=== PATIENT | female | born 1945 | race African-American/Black ===

== ENCOUNTER 2016-06-03 12:53 | Emergency (ER) | payer MEDICARE ==
[~2016-06-03] VITALS: Ht 160 cm; Wt 130.0 kg
[2016-06-03 12:57] VITALS: PULSE 67; TEMP 98.4
[2016-06-03] MEDS ORDERED: NORVASC 10MG10 MG PO (13:33)
[2016-06-03] MEDS ORDERED: LIPITOR 40MG TA40 MG PO (13:33)
[2016-06-03] MEDS ORDERED: CATAPRES0.2 MG PO (13:34)
[2016-06-03] MEDS ORDERED: JANUVIA 100MG100 MG PO (13:34)
[2016-06-03] MEDS ORDERED: GLUCOPHAGE1000 MG PO (13:34)
[2016-06-03] MEDS ORDERED: CELEXA10 MG PO (13:35)
[2016-06-03] MEDS ORDERED: COZAAR100 MG PO (13:35)
[2016-06-03] MEDS ORDERED: DITROPAN 5MG TAB5 MG PO (13:36)
[2016-06-03] MEDS ORDERED: HCTZ 25MG TAB25 MG PO (13:36)
[2016-06-03] MEDS ORDERED: APRESOLINE 25MG25 MG PO (13:36)
[2016-06-03] MEDS ORDERED: FOSAMAX 70MG TA70 MG PO (13:37)
[2016-06-03 14:16] LABS: PROTHROMBIN TIME 11.5 SECONDS (9.7-12.8)
[2016-06-03 14:18] LABS: BASO % 0.6 % (0.0-2.0); EOS # 0.1 (0.0-0.7); EOS % 2.6 % (0-4.0); GRAN # 2.3 (1.4-6.5); GRAN % 44.1 % (42.2-75.2); LYMPH # 2.2 (1.2-3.4); LYMPH % 41.7 % (20.0-51.0); MEAN CELL VOLUME 67 fl (80.0-100.0); MEAN CORPUSCULAR HGB CONC 29 g/dl (33.0-37.0); MONO # 0.6 (0.1-0.6); MONO % 10.8 % (1.7-9.3); PARTIAL THROMBOPLASTIN TIME 36.2 SECONDS (26.0-37.0); PLATELET COUNT 291 K/mm3 (130-400); RED BLOOD COUNT 5.21 M/mm3 (4.10-5.30); REDCELL DISTRIBUTION WIDTH-CV 21.2 % (11.5-14.5); WHITE BLOOD COUNT 5.3 K/mm3 (4.8-10.8)
[2016-06-03 14:21] LABS: HEMOGLOBIN 10.3 g/dl (12.5-16.0); MEAN CORPUSCULAR HEMOGLOBIN 20 pg (27.0-31.0)
[2016-06-03 14:55] LABS: ADJUSTED CALCIUM 9.8 mg/dL (8.4-10.2); ALANINE AMINOTRANSFERASE 22 U/L (9-52); ALBUMIN 3.8 gm/dL (3.5-5.0); ALKALINE PHOSPHATASE 117 U/L (50-136); ANION GAP 9 mmol/L (7-16); BILIRUBIN,TOTAL 0.9 mg/dL (0.0-1.0); BLOOD UREA NITROGEN 19 mg/dL (7-17); CALCIUM 9.6 mg/dL (8.4-10.2); CARBON DIOXIDE 31 mmol/L (22-30); CHLORIDE 101 mmol/L (98-107); CREATININE, serum 1.04 mg/dL (0.52-1.25); GLUCOSE 131 mg/dL (74-106); LIPASE 46 U/L (23-300); SODIUM 141 mmol/L (137-145); TOTAL PROTEIN 7.9 gm/dL (6.4-8.2)
[2016-06-03 15:09] LABS: TROPONIN-I < 0.012 ng/mL (0.000-0.034)
[2016-06-03] MEDS ORDERED: ZOFRAN 4MG T4 MG/TAB PO (16:56)
[2016-06-03] MEDS ORDERED: NORCO 325 MG-51 TAB PO (16:56)
[2016-06-03 17:54] VITALS: BP 111/79
== END 2016-06-03 17:58 | disposition home or self-care (01) ==
LOC: COL.ER 12:53
PROVIDERS: Emergency Medicine
DX: R10.11 Right upper quadrant pain (principal); I10 Essential (primary) hypertension; I44.1 Atrioventricular block, second degree; W01.0XXA Fall on same level from slipping, tripping and stumbling without subsequent striking against object, initial encounter
CPT/HCPCS: J1170; J2405; J7030; Q9967

== ENCOUNTER → 2016-08-03 | Outpatient (CLI) | payer MEDICARE, OTHER ==
[~2016-08-03] MED LIST: APRESOLINE 25MG25 MG PO; CATAPRES0.2 MG PO; CELEXA10 MG PO; COZAAR100 MG PO; DITROPAN 5MG TAB5 MG PO; FOSAMAX 70MG TA70 MG PO; GLUCOPHAGE1000 MG PO; HCTZ 25MG TAB25 MG PO; JANUVIA 100MG100 MG PO; LIPITOR 40MG TA40 MG PO; NORCO 325 MG-51 TAB PO; NORVASC 10MG10 MG PO; ZOFRAN 4MG T4 MG/TAB PO
== END ==
LOC: SUN.DIA 08:45
DX: E11.65 Type 2 diabetes mellitus with hyperglycemia (principal); E66.9 Obesity, unspecified; Z68.42 Body mass index [BMI] 45.0-49.9, adult; Z71.3 Dietary counseling and surveillance; E78.5 Hyperlipidemia, unspecified; I10 Essential (primary) hypertension; G47.30 Sleep apnea, unspecified
CPT/HCPCS: G0108

== ENCOUNTER → 2016-08-08 | Outpatient (CLI) | payer OTHER ==
[2016-08-08 12:40] LABS: CREATININE, serum 1.05 mg/dL (0.52-1.25)
[2016-08-09 00:42] LABS: CORTISOL RANDOM 13 ug/dL (3-20)
[2016-08-11 08:52] LABS: .METANEPHRINE <0.20 nmol/L (<0.50); .NORMETANEPH <0.20 nmol/L (<0.90)
[2016-08-11 13:53] LABS: RENIN,PLASMA <0.6 ng/mL/h (())
== END ==
LOC: COL.LAB 10:00
PROVIDERS: Internal Medicine Interventional Cardiology
DX: I10 Essential (primary) hypertension (principal)

== ENCOUNTER → 2016-08-23 | Outpatient (CLI) | payer MEDICARE, OTHER | LOC: SUN.DIA 10:23 | DX: E11.9 Type 2 diabetes mellitus without complications (principal); E78.5 Hyperlipidemia, unspecified; I10 Essential (primary) hypertension; E66.9 Obesity, unspecified; Z68.43 Body mass index [BMI] 50.0-59.9, adult; Z71.3 Dietary counseling and surveillance ==

== ENCOUNTER 2016-10-14 09:40 | Outpatient (CLI) | payer MEDICARE ==
[~2016-10-14] VITALS: Ht 162.6 cm; Wt 127.2 kg
[2016-10-14 10:04] VITALS: BP 209/97; PULSE 59; TEMP 98
[2016-10-14 10:27] LABS: MEAN CELL VOLUME 67 fl (80.0-100.0); MEAN CORPUSCULAR HGB CONC 30 g/dl (33.0-37.0); MEAN PLATELET VOLUME 9.5 fl (7.4-10.4); PLATELET COUNT 290 K/mm3 (130-400); REDCELL DISTRIBUTION WIDTH-CV 19.6 % (11.5-14.5); WHITE BLOOD COUNT 5.8 K/mm3 (4.8-10.8)
[2016-10-14 10:28] LABS: HEMATOCRIT 34.8 % (37.0-47.0); HEMOGLOBIN 10.4 g/dl (12.5-16.0); MEAN CORPUSCULAR HEMOGLOBIN 20 pg (27.0-31.0)
[2016-10-14 12:12] VITALS: BP 226/109; PULSE 62
== END 2016-10-14 12:36 | disposition home or self-care (01) ==
LOC: EUO 09:40
PROVIDERS: Internal Medicine Interventional Cardiology
DX: I45.5 Other specified heart block (principal); I10 Essential (primary) hypertension; R55 Syncope and collapse
CPT/HCPCS: C1764

== ENCOUNTER → 2016-10-14 | Outpatient (CLI) | payer MEDICARE | LOC: COL.PUL 08:54 | DX: J45.909 Unspecified asthma, uncomplicated (principal) ==

== ENCOUNTER 2016-12-02 10:13 | Day surgery (SDC) | payer MEDICARE ==
[~2016-12-02] VITALS: Ht 162.6 cm; Wt 129.0 kg
[2016-12-02] VITALS (11 sets, daily range): BP systolic 171–211; BP diastolic 85–111; PULSE 56–73; TEMP 98.6
[2016-12-02 11:38] LABS: CALCIUM 9.5 mg/dL (8.4-10.2); CREATININE, serum 1.14 mg/dL (0.52-1.25); POTASSIUM 3.9 mmol/L (3.4-5.0)
[2016-12-02 11:45] LABS: MEAN CELL VOLUME 68 fl (80.0-100.0); MEAN CORPUSCULAR HGB CONC 29 g/dl (33.0-37.0); PLATELET COUNT 304 K/mm3 (130-400); RED BLOOD COUNT 4.95 M/mm3 (4.10-5.30); WHITE BLOOD COUNT 6.5 K/mm3 (4.8-10.8)
[2016-12-02 11:47] LABS: HEMATOCRIT 33.6 % (37.0-47.0); HEMOGLOBIN 9.8 g/dl (12.5-16.0); MEAN CORPUSCULAR HEMOGLOBIN 20 pg (27.0-31.0)
== END 2016-12-02 17:35 | disposition home or self-care (01) ==
LOC: COL.CAR 10:13
PROVIDERS: Internal Medicine Interventional Cardiology
DX: I10 Essential (primary) hypertension (principal); G47.33 Obstructive sleep apnea (adult) (pediatric); E66.9 Obesity, unspecified
CPT/HCPCS: C1760; C1894; J0360; J2250; J3010; Q9967

== ENCOUNTER 2017-01-18 01:29 | Emergency (ER) | payer MEDICARE ==
[2017-01-18 01:34] VITALS: TEMP 98.5
[2017-01-18 01:56] LABS: BASO % 0.4 % (0.0-2.0); EOS # 0.2 (0.0-0.7); GRAN # 4.5 (1.4-6.5); GRAN % 59.9 % (42.2-75.2); HEMATOCRIT 33.5 % (37.0-47.0); HEMOGLOBIN 9.9 g/dl (12.5-16.0); LYMPH # 1.9 (1.2-3.4); LYMPH % 24.8 % (20.0-51.0); MEAN CELL VOLUME 68 fl (80.0-100.0); MEAN CORPUSCULAR HEMOGLOBIN 20 pg (27.0-31.0); MEAN CORPUSCULAR HGB CONC 30 g/dl (33.0-37.0); MEAN PLATELET VOLUME 9.6 fl (7.4-10.4); MONO # 0.9 (0.1-0.6); MONO % 12.6 % (1.7-9.3); PLATELET COUNT 298 K/mm3 (130-400); RED BLOOD COUNT 4.92 M/mm3 (4.10-5.30); WHITE BLOOD COUNT 7.5 K/mm3 (4.8-10.8)
[2017-01-18 01:58] LABS: ALLEN TEST YES; ALLENS TEST RESULT PASS; ARTERIAL BLD GAS O2 SATURATION 95.7 % (92-100); ARTERIAL BLD GAS TCO2 CT 25.6; ARTERIAL BLOOD GAS BASE EXCESS 0.4 (-2-2); ARTERIAL BLOOD GAS HCO3 24.5 meq/L (22-26); ARTERIAL BLOOD GAS pH 7.43 (7.35-7.45); ATS? YES; OXYHEMOGLOBIN 94.6 %
[2017-01-18 02:09] LABS: ADJUSTED CALCIUM 9.8 mg/dL (8.4-10.2); ALBUMIN 4.1 gm/dL (3.5-5.0); BILIRUBIN,TOTAL 0.6 mg/dL (0.0-1.0); CALCIUM 9.9 mg/dL (8.4-10.2); CREATININE, serum 1.06 mg/dL (0.52-1.25); POTASSIUM 3.5 mmol/L (3.4-5.0); TOTAL PROTEIN 8.2 gm/dL (6.4-8.2)
[2017-01-18 02:20] LABS: TROPONIN-I 0.014 ng/mL (0.000-0.034)
[2017-01-18] MEDS ORDERED: LEVAQUIN 750MG750 M1 PO (04:23)
[2017-01-18 05:45] VITALS: BP 160/80; PULSE 60
== END 2017-01-18 06:08 | disposition home or self-care (01) ==
LOC: COL.ER 01:29
PROVIDERS: Emergency Medicine
DX: J18.9 Pneumonia, unspecified organism (principal); I10 Essential (primary) hypertension; J45.909 Unspecified asthma, uncomplicated; E11.9 Type 2 diabetes mellitus without complications; Z98.890 Other specified postprocedural states; Z79.84 Long term (current) use of oral hypoglycemic drugs
CPT/HCPCS: J1100; Q9967

== ENCOUNTER 2017-02-14 04:43 | Emergency (ER) | payer MEDICARE ==
[~2017-02-14] VITALS: Ht 162.6 cm; Wt 127.3 kg
[~2017-02-14 04:43] MED LIST changes: +LEVAQUIN 750MG750 M1 PO
[2017-02-14 04:44] VITALS: TEMP 98.1
[2017-02-14] MEDS ORDERED: BREO IH (05:17)
[2017-02-14] MEDS ORDERED: PREDNISONE20 MG PO (06:24)
[2017-02-14 07:07] VITALS: BP 167/87; PULSE 65
== END 2017-02-14 07:08 | disposition home or self-care (01) ==
LOC: COL.ER 04:43
DX: J45.901 Unspecified asthma with (acute) exacerbation (principal); E11.9 Type 2 diabetes mellitus without complications; I10 Essential (primary) hypertension; Z79.84 Long term (current) use of oral hypoglycemic drugs; Z98.890 Other specified postprocedural states
CPT/HCPCS: J7512

== ENCOUNTER 2017-04-18 23:35 | Emergency (ER) | payer MEDICARE ==
[~2017-04-18] VITALS: Ht 162.6 cm; Wt 127.3 kg
[~2017-04-18 23:35] MED LIST changes: +BREO IH; +PREDNISONE20 MG PO
[2017-04-18 23:39] VITALS: TEMP 97.7
[2017-04-19 00:15] LABS: BASO % 0.6 % (0.0-2.0); EOS # 0.2 (0.0-0.7); EOS % 2.5 % (0-4.0); GRAN # 3.6 (1.4-6.5); GRAN % 52.6 % (42.2-75.2); LYMPH # 2.4 (1.2-3.4); LYMPH % 35.3 % (20.0-51.0); MEAN CELL VOLUME 67 fl (80.0-100.0); MEAN CORPUSCULAR HGB CONC 29 g/dl (33.0-37.0); MEAN PLATELET VOLUME 9.3 fl (7.4-10.4); MONO # 0.6 (0.1-0.6); MONO % 8.7 % (1.7-9.3); PLATELET COUNT 282 K/mm3 (130-400); RED BLOOD COUNT 5.21 M/mm3 (4.10-5.30); REDCELL DISTRIBUTION WIDTH-CV 20.6 % (11.5-14.5)
[2017-04-19 00:18] LABS: HEMATOCRIT 34.8 % (37.0-47.0); HEMOGLOBIN 10.2 g/dl (12.5-16.0); MEAN CORPUSCULAR HEMOGLOBIN 20 pg (27.0-31.0)
[2017-04-19 00:20] LABS: PROTHROMBIN TIME 12.1 SECONDS (9.7-12.8)
[2017-04-19 00:22] LABS: PARTIAL THROMBOPLASTIN TIME 26.9 SECONDS (26.0-37.0)
[2017-04-19 00:23] LABS: ALBUMIN 3.8 gm/dL (3.5-5.0); BILIRUBIN,TOTAL 0.3 mg/dL (0.0-1.0); CALCIUM 9.6 mg/dL (8.4-10.2); CREATININE, serum 1.1 mg/dL (0.52-1.25); POTASSIUM 4.3 mmol/L (3.4-5.0); TOTAL PROTEIN 7.8 gm/dL (6.4-8.2)
[2017-04-19 00:34] LABS: TROPONIN-I 0.019 ng/mL (0.000-0.034)
[2017-04-19] MEDS ORDERED: BYSTOLIC5 MG PO (00:48)
[2017-04-19] MEDS ORDERED: PROAIR HFA0.09 MG/AC IH (00:49)
[2017-04-19] MEDS ORDERED: PREDNISONE20 MG PO (01:12)
[2017-04-19 01:15] VITALS: BP 168/72; PULSE 75
== END 2017-04-19 02:00 | disposition home or self-care (01) ==
LOC: COL.ER 23:35
PROVIDERS: Emergency Medicine
DX: J45.901 Unspecified asthma with (acute) exacerbation (principal); E11.9 Type 2 diabetes mellitus without complications; I10 Essential (primary) hypertension; Z79.84 Long term (current) use of oral hypoglycemic drugs
CPT/HCPCS: J2930

== ENCOUNTER 2017-05-09 03:21 | Inpatient (IN) | payer MEDICARE ==
[~2017-05-09] VITALS: Ht 162.6 cm; Wt 134.4 kg
[2017-05-09] VITALS (10 sets, daily range): BP systolic 130–214; BP diastolic 71–113; PULSE 56–63; TEMP 97.4–97.8
[~2017-05-09 03:21] MED LIST changes: +BYSTOLIC5 MG PO; +PROAIR HFA0.09 MG/AC IH
[2017-05-09] MEDS ORDERED: CELEXA10 MG PO (03:52)
[2017-05-09 03:54] LABS: BASO % 0.3 % (0.0-2.0); EOS # 0.1 (0.0-0.7); EOS % 2.2 % (0-4.0); GRAN # 3.4 (1.4-6.5); GRAN % 58.8 % (42.2-75.2); LYMPH # 1.8 (1.2-3.4); LYMPH % 30.5 % (20.0-51.0); MEAN CELL VOLUME 67 fl (80.0-100.0); MEAN CORPUSCULAR HGB CONC 30 g/dl (33.0-37.0); MEAN PLATELET VOLUME 9.2 fl (7.4-10.4); MONO # 0.5 (0.1-0.6); MONO % 7.9 % (1.7-9.3); PLATELET COUNT 266 K/mm3 (130-400); REDCELL DISTRIBUTION WIDTH-CV 21.8 % (11.5-14.5)
[2017-05-09 03:55] LABS: HEMATOCRIT 34.9 % (37.0-47.0); HEMOGLOBIN 10.4 g/dl (12.5-16.0); MEAN CORPUSCULAR HEMOGLOBIN 20 pg (27.0-31.0)
[2017-05-09 03:57] LABS: PROTHROMBIN TIME 11.9 SECONDS (9.7-12.8)
[2017-05-09 04:04] LABS: ALBUMIN 3.9 gm/dL (3.5-5.0); BILIRUBIN,TOTAL 0.4 mg/dL (0.0-1.0); CALCIUM 9.2 mg/dL (8.4-10.2); CREATININE, serum 1.05 mg/dL (0.52-1.25); POTASSIUM 3.9 mmol/L (3.4-5.0); TOTAL PROTEIN 7.7 gm/dL (6.4-8.2)
[2017-05-09 04:19] LABS: TROPONIN-I 0.037 ng/mL (0.000-0.034)
[2017-05-09 08:25] LABS: CHOLESTEROL RISK RATIO 3.5; MAGNESIUM 1.6 mg/dL (1.6-2.3)
[2017-05-10 01:47] VITALS: BP 158/87; PULSE 56
[2017-05-10 03:49] VITALS: BP 162/81; PULSE 60; TEMP 97.6
[2017-05-10 05:35] LABS: BASO % 0.2 % (0.0-2.0); GRAN # 4.4 (1.4-6.5); GRAN % 87.2 % (42.2-75.2); LYMPH # 0.6 (1.2-3.4); MEAN CELL VOLUME 67 fl (80.0-100.0); MEAN CORPUSCULAR HGB CONC 30 g/dl (33.0-37.0); MONO # 0.1 (0.1-0.6); MONO % 1.2 % (1.7-9.3); PLATELET COUNT 283 K/mm3 (130-400); RED BLOOD COUNT 5.03 M/mm3 (4.10-5.30); REDCELL DISTRIBUTION WIDTH-CV 21.9 % (11.5-14.5)
[2017-05-10 05:44] LABS: HEMATOCRIT 33.5 % (37.0-47.0); HEMOGLOBIN 9.9 g/dl (12.5-16.0); MEAN CORPUSCULAR HEMOGLOBIN 20 pg (27.0-31.0)
[2017-05-10 05:46] LABS: CALCIUM 9.3 mg/dL (8.4-10.2); CREATININE, serum 0.97 mg/dL (0.52-1.25); POTASSIUM 4.3 mmol/L (3.4-5.0)
[2017-05-10 08:00] VITALS: BP 204/102; PULSE 66; TEMP 98.2
[2017-05-10 12:00] VITALS: BP 167/90; PULSE 53; TEMP 98
[2017-05-10 16:00] VITALS: BP 131/90; PULSE 60; TEMP 98
[2017-05-10 20:00] VITALS: BP 137/87; PULSE 68; TEMP 98
[2017-05-11] VITALS: BP 151/86; PULSE 56; TEMP 98
[2017-05-11 04:00] VITALS: BP 136/84; PULSE 54; TEMP 97.6
[2017-05-11 08:00] VITALS: BP 148/81; PULSE 55; TEMP 98.2
[2017-05-11 08:40] LABS: BASO % 0.1 % (0.0-2.0); EOS % 0.2 % (0-4.0); GRAN # 8.3 (1.4-6.5); GRAN % 73.2 % (42.2-75.2); HEMOGLOBIN 9.5 g/dl (12.5-16.0); LYMPH # 2.1 (1.2-3.4); LYMPH % 18.1 % (20.0-51.0); MEAN CELL VOLUME 67 fl (80.0-100.0); MEAN CORPUSCULAR HEMOGLOBIN 20 pg (27.0-31.0); MEAN CORPUSCULAR HGB CONC 30 g/dl (33.0-37.0); MONO # 0.9 (0.1-0.6); PLATELET COUNT 266 K/mm3 (130-400); REDCELL DISTRIBUTION WIDTH-CV 21.9 % (11.5-14.5)
[2017-05-11 08:56] LABS: BILIRUBIN,TOTAL 0.3 mg/dL (0.0-1.0); CREATININE, serum 1.64 mg/dL (0.52-1.25); POTASSIUM 4.2 mmol/L (3.4-5.0); TOTAL PROTEIN 6.8 gm/dL (6.4-8.2)
[2017-05-11 09:10] LABS: ALBUMIN 3.3 gm/dL (3.5-5.0); CALCIUM 9.5 mg/dL (8.4-10.2)
[2017-05-11 12:12] VITALS: BP 174/106; PULSE 55; TEMP 98
[2017-05-11 16:00] VITALS: BP 141/74; PULSE 52; TEMP 98.7
[2017-05-11 21:20] VITALS: BP 155/70; PULSE 57; TEMP 98
[2017-05-12] VITALS (7 sets, daily range): BP systolic 136–194; BP diastolic 50–80; PULSE 48–55; TEMP 97.5–98.4
[2017-05-12 08:36] LABS: BASO % 0.1 % (0.0-2.0); GRAN % 73.7 % (42.2-75.2); LYMPH # 1.5 (1.2-3.4); LYMPH % 18.3 % (20.0-51.0); MEAN CELL VOLUME 66 fl (80.0-100.0); MEAN CORPUSCULAR HGB CONC 30 g/dl (33.0-37.0); MONO # 0.6 (0.1-0.6); MONO % 7.4 % (1.7-9.3); PLATELET COUNT 310 K/mm3 (130-400); RED BLOOD COUNT 5.08 M/mm3 (4.10-5.30); REDCELL DISTRIBUTION WIDTH-CV 21.8 % (11.5-14.5)
[2017-05-12 08:37] LABS: HEMATOCRIT 33.7 % (37.0-47.0); HEMOGLOBIN 10.2 g/dl (12.5-16.0); MEAN CORPUSCULAR HEMOGLOBIN 20 pg (27.0-31.0)
[2017-05-12 08:49] LABS: CALCIUM 9.7 mg/dL (8.4-10.2); CREATININE, serum 1.36 mg/dL (0.52-1.25); POTASSIUM 4.2 mmol/L (3.4-5.0)
[2017-05-13 02:00] VITALS: BP 172/79; PULSE 49; TEMP 97.4
[2017-05-13 06:53] VITALS: BP 176/80; PULSE 44; TEMP 97.6
[2017-05-13 07:25] LABS: BASO % 0.1 % (0.0-2.0); EOS % 0.2 % (0-4.0); GRAN # 5.6 (1.4-6.5); GRAN % 65.7 % (42.2-75.2); MEAN CELL VOLUME 67 fl (80.0-100.0); MEAN CORPUSCULAR HGB CONC 30 g/dl (33.0-37.0); MONO # 0.8 (0.1-0.6); MONO % 9.6 % (1.7-9.3); PLATELET COUNT 289 K/mm3 (130-400); RED BLOOD COUNT 5.18 M/mm3 (4.10-5.30)
[2017-05-13 07:28] LABS: HEMATOCRIT 34.5 % (37.0-47.0); HEMOGLOBIN 10.3 g/dl (12.5-16.0); MEAN CORPUSCULAR HEMOGLOBIN 20 pg (27.0-31.0)
[2017-05-13 07:30] LABS: CALCIUM 9.7 mg/dL (8.4-10.2); CREATININE, serum 1.3 mg/dL (0.52-1.25); POTASSIUM 4.3 mmol/L (3.4-5.0)
[2017-05-13 11:07] VITALS: BP 157/68; PULSE 50; TEMP 97.7
[2017-05-13 14:36] VITALS: BP 146/59; PULSE 52; TEMP 98.5
[2017-05-13 17:51] VITALS: BP 161/61; PULSE 52; TEMP 97.8
[2017-05-13 20:00] VITALS: BP 146/56; PULSE 51; TEMP 98.1
[2017-05-14] VITALS (8 sets, daily range): BP systolic 140–209; BP diastolic 62–96; PULSE 45–97; TEMP 97.8–99.3
[2017-05-15] VITALS: BP 160/87; PULSE 69; TEMP 98.1
[2017-05-15 04:35] VITALS: BP 128/66; PULSE 51; TEMP 98.1
[2017-05-15 09:29] VITALS: BP 150/69; PULSE 56; TEMP 97.6
[2017-05-15 13:19] VITALS: BP 147/68; PULSE 52; TEMP 98.1
[2017-05-15] MEDS ORDERED: PLAVIX 75MG TAB75 MG PO (15:48)
== END 2017-05-15 17:13 | disposition home or self-care (01) | DRG 281 ==
LOC: COL.ER 03:21 → ICU 06:13 → SURG 06:13 → ICU 06:14 → SURG 05-11 11:58
PROVIDERS: Emergency Medicine; Family Medicine; Nurse Practitioner Family; Physician Assistant
DX: I16.0 Hypertensive urgency (principal); I21.A1 Myocardial infarction type 2; I50.30 Unspecified diastolic (congestive) heart failure; I11.0 Hypertensive heart disease with heart failure; E78.5 Hyperlipidemia, unspecified; E11.9 Type 2 diabetes mellitus without complications; G47.33 Obstructive sleep apnea (adult) (pediatric); R06.00 Dyspnea, unspecified; Z79.84 Long term (current) use of oral hypoglycemic drugs
CPT/HCPCS: 99223-AI; 99232-AI; 99233-AI; 99239; J0360; J1650; J1815; J7030; J7050; J7512; Q9967

== ENCOUNTER 2017-05-16 06:38 | Inpatient (IN) | payer MEDICARE ==
[~2017-05-16] VITALS: Ht 162.6 cm; Wt 131.1 kg
[~2017-05-16 06:38] MED LIST changes: +PLAVIX 75MG TAB75 MG PO
[2017-05-16 07:15] LABS: BASO % 0.4 % (0.0-2.0); EOS # 0.2 (0.0-0.7); EOS % 2.9 % (0-4.0); GRAN # 3.8 (1.4-6.5); GRAN % 50.1 % (42.2-75.2); HEMATOCRIT 38.9 % (37.0-47.0); LYMPH # 2.6 (1.2-3.4); LYMPH % 34.9 % (20.0-51.0); MEAN CELL VOLUME 66 fl (80.0-100.0); MEAN CORPUSCULAR HGB CONC 31 g/dl (33.0-37.0); MONO # 0.8 (0.1-0.6); MONO % 10.9 % (1.7-9.3); PLATELET COUNT 321 K/mm3 (130-400); RED BLOOD COUNT 5.86 M/mm3 (4.10-5.30); REDCELL DISTRIBUTION WIDTH-CV 22.5 % (11.5-14.5)
[2017-05-16 07:16] LABS: HEMOGLOBIN 11.9 g/dl (12.5-16.0); MEAN CORPUSCULAR HEMOGLOBIN 20 pg (27.0-31.0)
[2017-05-16 07:20] LABS: ARTERIAL BLD GAS O2 SATURATION 91.4 % (92-100); ARTERIAL BLD GAS TCO2 CT 26.9; ARTERIAL BLOOD GAS HCO3 25.7 meq/L (22-26); ARTERIAL BLOOD GAS PCO2 37.1 mmHg (35-45); ARTERIAL BLOOD GAS PO2 64.6 mmHg (80-100); ARTERIAL BLOOD GAS pH 7.46 (7.35-7.45)
[2017-05-16 07:23] LABS: ALBUMIN 3.9 gm/dL (3.5-5.0); BILIRUBIN,TOTAL 0.5 mg/dL (0.0-1.0); CALCIUM 9.6 mg/dL (8.4-10.2); CREATININE, serum 1.41 mg/dL (0.52-1.25); POTASSIUM 4.6 mmol/L (3.4-5.0); TOTAL PROTEIN 7.8 gm/dL (6.4-8.2)
[2017-05-16 07:36] LABS: TROPONIN-I 0.029 ng/mL (0.000-0.034)
[2017-05-16 11:48] VITALS: BP 174/85; PULSE 66
[2017-05-16 17:12] VITALS: BP 157/129; PULSE 55; TEMP 98.8
[2017-05-16 20:16] VITALS: BP 208/82; PULSE 64; TEMP 97.6
[2017-05-16 21:15] VITALS: BP 196/115; PULSE 68
[2017-05-16 22:53] VITALS: BP 162/93; PULSE 68
[2017-05-17] VITALS (9 sets, daily range): BP systolic 106–186; BP diastolic 56–105; PULSE 52–72; TEMP 97.6–98.3
[2017-05-17 06:37] LABS: BASO % 0.4 % (0.0-2.0); EOS # 0.1 (0.0-0.7); EOS % 0.9 % (0-4.0); GRAN # 4.7 (1.4-6.5); GRAN % 68.5 % (42.2-75.2); HEMATOCRIT 37.9 % (37.0-47.0); LYMPH # 1.2 (1.2-3.4); LYMPH % 17.7 % (20.0-51.0); MEAN CELL VOLUME 67 fl (80.0-100.0); MEAN CORPUSCULAR HGB CONC 29 g/dl (33.0-37.0); MONO # 0.8 (0.1-0.6); MONO % 11.9 % (1.7-9.3); PLATELET COUNT 308 K/mm3 (130-400); RED BLOOD COUNT 5.62 M/mm3 (4.10-5.30); REDCELL DISTRIBUTION WIDTH-CV 22.5 % (11.5-14.5)
[2017-05-17 06:49] LABS: CALCIUM 9.4 mg/dL (8.4-10.2); CREATININE, serum 1.22 mg/dL (0.52-1.25); MAGNESIUM 1.7 mg/dL (1.6-2.3); PHOSPHOROUS 3.5 mg/dL (2.5-4.5); POTASSIUM 3.8 mmol/L (3.4-5.0)
[2017-05-17 07:09] LABS: HEMOGLOBIN 11.1 g/dl (12.5-16.0); MEAN CORPUSCULAR HEMOGLOBIN 20 pg (27.0-31.0)
[2017-05-18] VITALS (7 sets, daily range): BP systolic 94–143; BP diastolic 55–69; PULSE 50–58; TEMP 97.8–98.8
[2017-05-18 06:55] LABS: BASO % 0.3 % (0.0-2.0); EOS # 0.1 (0.0-0.7); EOS % 1.8 % (0-4.0); GRAN % 58.5 % (42.2-75.2); LYMPH # 1.8 (1.2-3.4); LYMPH % 26.8 % (20.0-51.0); MEAN CELL VOLUME 67 fl (80.0-100.0); MEAN CORPUSCULAR HGB CONC 30 g/dl (33.0-37.0); MONO # 0.8 (0.1-0.6); MONO % 12.2 % (1.7-9.3); PLATELET COUNT 314 K/mm3 (130-400); RED BLOOD COUNT 5.35 M/mm3 (4.10-5.30); REDCELL DISTRIBUTION WIDTH-CV 22.5 % (11.5-14.5)
[2017-05-18 06:56] LABS: HEMATOCRIT 35.8 % (37.0-47.0); HEMOGLOBIN 10.6 g/dl (12.5-16.0); MEAN CORPUSCULAR HEMOGLOBIN 20 pg (27.0-31.0)
[2017-05-18 07:07] LABS: CALCIUM 9.2 mg/dL (8.4-10.2); CREATININE, serum 2.23 mg/dL (0.52-1.25); POTASSIUM 3.8 mmol/L (3.4-5.0)
[2017-05-19 01:41] VITALS: BP 110/62; PULSE 53; TEMP 98.8
[2017-05-19 05:13] VITALS: BP 137/57; PULSE 49; TEMP 98.3
[2017-05-19 06:18] LABS: BASO % 0.6 % (0.0-2.0); EOS # 0.2 (0.0-0.7); EOS % 2.9 % (0-4.0); GRAN # 2.7 (1.4-6.5); GRAN % 42.8 % (42.2-75.2); LYMPH # 2.5 (1.2-3.4); LYMPH % 39.4 % (20.0-51.0); MEAN CELL VOLUME 67 fl (80.0-100.0); MEAN CORPUSCULAR HGB CONC 30 g/dl (33.0-37.0); MONO # 0.9 (0.1-0.6); MONO % 13.7 % (1.7-9.3); PLATELET COUNT 335 K/mm3 (130-400); RED BLOOD COUNT 5.15 M/mm3 (4.10-5.30); REDCELL DISTRIBUTION WIDTH-CV 22.1 % (11.5-14.5)
[2017-05-19 06:22] LABS: HEMATOCRIT 34.4 % (37.0-47.0); HEMOGLOBIN 10.2 g/dl (12.5-16.0); MEAN CORPUSCULAR HEMOGLOBIN 20 pg (27.0-31.0)
[2017-05-19 06:35] LABS: CREATININE, serum 2.02 mg/dL (0.52-1.25); PHOSPHOROUS 4.3 mg/dL (2.5-4.5); POTASSIUM 3.8 mmol/L (3.4-5.0)
[2017-05-19 09:12] VITALS: BP 127/46; PULSE 51; TEMP 98.5
[2017-05-19] MEDS ORDERED: JANUVIA 100MG100 MG PO (09:42)
[2017-05-19 14:00] VITALS: BP 120/40; PULSE 52; TEMP 99
== END 2017-05-19 15:48 | disposition home or self-care (01) | DRG 154 ==
LOC: COL.ER 06:38 → SURG 09:50
PROVIDERS: Emergency Medicine; Internal Medicine; Physician Assistant
DX: G47.33 Obstructive sleep apnea (adult) (pediatric) (principal); I21.A1 Myocardial infarction type 2; N17.9 Acute kidney failure, unspecified; I16.1 Hypertensive emergency; I50.32 Chronic diastolic (congestive) heart failure; I11.0 Hypertensive heart disease with heart failure; E11.9 Type 2 diabetes mellitus without complications; J45.909 Unspecified asthma, uncomplicated; F41.8 Other specified anxiety disorders
CPT/HCPCS: OP; 99222-AI; 99232-AI; 99233-AI; 99239; G0378; J1630; J1650; J1815; J1940

== ENCOUNTER → 2017-06-21 | Outpatient (CLI) | payer MEDICARE | LOC: COL.RAD 10:49 | DX: Z01.89 Encounter for other specified special examinations (principal) ==

== ENCOUNTER 2017-09-24 21:12 | Inpatient (IN) | payer MEDICARE ==
[~2017-09-24] VITALS: Ht 162.6 cm; Wt 130.4 kg
[~2017-09-24 21:12] MED LIST changes: +AMOXICILLIN 8751 TAB PO; +AMOXICILLIN875 MG PO; +COREG 25MG25 MG/TAB PO; +COZAAR 50MG50 MG/TAB PO; +ZESTRIL 10MG10 MG PO
[2017-09-24 22:04] LABS: BASO % 0.4 % (0.0-2.0); EOS # 0.2 (0.0-0.7); EOS % 2.4 % (0-4.0); GRAN # 4.6 (1.4-6.5); GRAN % 65.2 % (42.2-75.2); LYMPH # 1.5 (1.2-3.4); LYMPH % 21.4 % (20.0-51.0); MEAN CELL VOLUME 69 fl (80.0-100.0); MEAN CORPUSCULAR HGB CONC 29 g/dl (33.0-37.0); MEAN PLATELET VOLUME 10.2 fl (7.4-10.4); MONO # 0.7 (0.1-0.6); MONO % 10.3 % (1.7-9.3); PLATELET COUNT 283 K/mm3 (130-400); RED BLOOD COUNT 4.55 M/mm3 (4.10-5.30); REDCELL DISTRIBUTION WIDTH-CV 19.8 % (11.5-14.5)
[2017-09-24 22:05] LABS: HEMATOCRIT 31.3 % (37.0-47.0); HEMOGLOBIN 9.2 g/dl (12.5-16.0); MEAN CORPUSCULAR HEMOGLOBIN 20 pg (27.0-31.0)
[2017-09-24 22:15] LABS: ALBUMIN 3.9 gm/dL (3.5-5.0); BILIRUBIN,TOTAL 0.5 mg/dL (0.0-1.0); C-REACTIVE PROTEIN 4.6 mg/dL (0.0-0.9); CALCIUM 9.2 mg/dL (8.4-10.2); CREATININE, serum 1.12 mg/dL (0.52-1.25); POTASSIUM 3.7 mmol/L (3.4-5.0); TOTAL PROTEIN 7.9 gm/dL (6.4-8.2)
[2017-09-24 22:26] LABS: TROPONIN-I 0.095 ng/mL (0.000-0.034)
[2017-09-25] VITALS (818 sets, daily range): BP systolic 102–183; BP diastolic 50–107; PULSE 60–68; TEMP 96.8–97.3; O2SAT 70–100
[2017-09-25 06:04] LABS: BASO % 0.3 % (0.0-2.0); EOS # 0.1 (0.0-0.7); EOS % 1.8 % (0-4.0); GRAN % 58.7 % (42.2-75.2); HEMATOCRIT 28.8 % (37.0-47.0); HEMOGLOBIN 8.6 g/dl (12.5-16.0); LYMPH # 1.9 (1.2-3.4); LYMPH % 28.1 % (20.0-51.0); MEAN CELL VOLUME 69 fl (80.0-100.0); MEAN CORPUSCULAR HEMOGLOBIN 20 pg (27.0-31.0); MEAN CORPUSCULAR HGB CONC 30 g/dl (33.0-37.0); MEAN PLATELET VOLUME 9.7 fl (7.4-10.4); MONO # 0.7 (0.1-0.6); MONO % 10.7 % (1.7-9.3); PLATELET COUNT 269 K/mm3 (130-400); REDCELL DISTRIBUTION WIDTH-CV 19.8 % (11.5-14.5)
[2017-09-25 06:23] LABS: CALCIUM 9.1 mg/dL (8.4-10.2); CREATININE, serum 1.07 mg/dL (0.52-1.25); POTASSIUM 3.3 mmol/L (3.4-5.0)
[2017-09-25 06:44] LABS: TROPONIN-I 0.253 ng/mL (0.000-0.034)
[2017-09-26] VITALS (642 sets, daily range): BP systolic 106–149; BP diastolic 41–82; PULSE 59–65; TEMP 97–98.9; O2SAT 50–100
[2017-09-26 05:28] LABS: BASO % 0.5 % (0.0-2.0); EOS # 0.3 (0.0-0.7); EOS % 4.9 % (0-4.0); GRAN # 3.1 (1.4-6.5); GRAN % 56.1 % (42.2-75.2); LYMPH # 1.6 (1.2-3.4); LYMPH % 28.6 % (20.0-51.0); MEAN CELL VOLUME 68 fl (80.0-100.0); MEAN CORPUSCULAR HGB CONC 30 g/dl (33.0-37.0); MEAN PLATELET VOLUME 9.4 fl (7.4-10.4); MONO # 0.5 (0.1-0.6); MONO % 9.7 % (1.7-9.3); PLATELET COUNT 247 K/mm3 (130-400); RED BLOOD COUNT 4.36 M/mm3 (4.10-5.30)
[2017-09-26 05:39] LABS: CALCIUM 8.8 mg/dL (8.4-10.2); CREATININE, serum 1.29 mg/dL (0.52-1.25); MAGNESIUM 1.6 mg/dL (1.6-2.3); POTASSIUM 3.9 mmol/L (3.4-5.0)
[2017-09-26 05:40] LABS: HEMATOCRIT 29.6 % (37.0-47.0); HEMOGLOBIN 8.9 g/dl (12.5-16.0); MEAN CORPUSCULAR HEMOGLOBIN 20 pg (27.0-31.0)
[2017-09-26 05:53] LABS: TROPONIN-I 0.131 ng/mL (0.000-0.034)
[2017-09-27 04:24] VITALS: BP 125/66; PULSE 60; TEMP 98.6
[2017-09-27 06:48] LABS: BASO % 0.5 % (0.0-2.0); EOS # 0.3 (0.0-0.7); EOS % 4.4 % (0-4.0); GRAN # 3.1 (1.4-6.5); GRAN % 53.4 % (42.2-75.2); HEMATOCRIT 28.8 % (37.0-47.0); HEMOGLOBIN 8.5 g/dl (12.5-16.0); LYMPH # 1.6 (1.2-3.4); LYMPH % 28.4 % (20.0-51.0); MEAN CELL VOLUME 69 fl (80.0-100.0); MEAN CORPUSCULAR HEMOGLOBIN 20 pg (27.0-31.0); MEAN CORPUSCULAR HGB CONC 30 g/dl (33.0-37.0); MEAN PLATELET VOLUME 10.1 fl (7.4-10.4); MONO # 0.8 (0.1-0.6); MONO % 13.1 % (1.7-9.3); PLATELET COUNT 259 K/mm3 (130-400); RED BLOOD COUNT 4.17 M/mm3 (4.10-5.30); REDCELL DISTRIBUTION WIDTH-CV 19.3 % (11.5-14.5)
[2017-09-27 07:06] LABS: CALCIUM 8.9 mg/dL (8.4-10.2); CREATININE, serum 1.27 mg/dL (0.52-1.25); MAGNESIUM 1.8 mg/dL (1.6-2.3); POTASSIUM 4.3 mmol/L (3.4-5.0)
[2017-09-27 07:22] VITALS: BP 151/75; PULSE 59; TEMP 97.5
[2017-09-27 11:50] VITALS: BP 132/89; TEMP 98
[2017-09-27 15:23] VITALS: BP 126/57; PULSE 74; TEMP 98.7
[2017-09-27 20:18] VITALS: BP 134/60; PULSE 59; TEMP 99.3
[2017-09-28] VITALS (7 sets, daily range): BP systolic 114–132; BP diastolic 48–70; PULSE 58–64; TEMP 97.7–98.8
[2017-09-28 06:36] LABS: BASO % 0.5 % (0.0-2.0); EOS # 0.2 (0.0-0.7); EOS % 3.1 % (0-4.0); GRAN # 3.7 (1.4-6.5); LYMPH # 1.7 (1.2-3.4); LYMPH % 26.2 % (20.0-51.0); MEAN CELL VOLUME 67 fl (80.0-100.0); MEAN CORPUSCULAR HGB CONC 31 g/dl (33.0-37.0); MONO # 0.8 (0.1-0.6); PLATELET COUNT 262 K/mm3 (130-400); RED BLOOD COUNT 4.34 M/mm3 (4.10-5.30); REDCELL DISTRIBUTION WIDTH-CV 19.4 % (11.5-14.5)
[2017-09-28 06:40] LABS: HEMATOCRIT 29.2 % (37.0-47.0); HEMOGLOBIN 8.9 g/dl (12.5-16.0); MEAN CORPUSCULAR HEMOGLOBIN 21 pg (27.0-31.0)
[2017-09-28 06:53] LABS: CALCIUM 8.7 mg/dL (8.4-10.2); CREATININE, serum 1.35 mg/dL (0.52-1.25); POTASSIUM 4.3 mmol/L (3.4-5.0)
[2017-09-29 04:07] VITALS: BP 123/69; PULSE 59; TEMP 98.1
[2017-09-29 06:53] LABS: BASO % 0.5 % (0.0-2.0); EOS # 0.2 (0.0-0.7); EOS % 3.2 % (0-4.0); LYMPH # 1.5 (1.2-3.4); LYMPH % 27.4 % (20.0-51.0); MEAN CELL VOLUME 70 fl (80.0-100.0); MEAN CORPUSCULAR HGB CONC 29 g/dl (33.0-37.0); MONO # 0.8 (0.1-0.6); MONO % 13.5 % (1.7-9.3); PLATELET COUNT 274 K/mm3 (130-400); RED BLOOD COUNT 4.05 M/mm3 (4.10-5.30); REDCELL DISTRIBUTION WIDTH-CV 19.2 % (11.5-14.5)
[2017-09-29 06:57] LABS: HEMATOCRIT 28.2 % (37.0-47.0); HEMOGLOBIN 8.2 g/dl (12.5-16.0); MEAN CORPUSCULAR HEMOGLOBIN 20 pg (27.0-31.0)
[2017-09-29 07:09] LABS: CALCIUM 8.6 mg/dL (8.4-10.2); CREATININE, serum 1.49 mg/dL (0.52-1.25); POTASSIUM 4.1 mmol/L (3.4-5.0)
[2017-09-29 07:14] VITALS: BP 129/75; PULSE 59; TEMP 97.8
[2017-09-29] MEDS ORDERED: CATAPRES 0.1MG0.1 MG PO (09:10)
[2017-09-29] MEDS ORDERED: PLAVIX 75MG TAB75 MG PO (09:10)
[2017-09-29] MEDS ORDERED: COZAAR100 MG PO (09:11)
[2017-09-29] MEDS ORDERED: NORVASC 5MG5 MG/TAB PO (09:12)
[2017-10-02 11:57] LABS: CATECHOLAMINES-HRS COLLECTED 24 h (()); DOPAMINE 113 mcg/24 h (65-400); EPINEPHRINE <0.8 mcg/24 h (<21); NOREPINEPHRINE 15 mcg/24 h (15-80); URINE VOLUME 1500 mL (())
== END 2017-09-29 13:00 | disposition home health service (06) | DRG 280 ==
LOC: COL.ER 21:12 → MEDICAL 23:17 → ICU 23:17 → MEDICAL 09-26 14:18 → ICU 09-26 14:18 → MEDICAL 09-26 16:09
PROVIDERS: Emergency Medicine; Internal Medicine; Internal Medicine Cardiovascular Disease; Nurse Practitioner Family; Physician Assistant
DX: I16.1 Hypertensive emergency (principal); I21.4 Non-ST elevation (NSTEMI) myocardial infarction; I50.33 Acute on chronic diastolic (congestive) heart failure; N17.9 Acute kidney failure, unspecified; I13.0 Hypertensive heart and chronic kidney disease with heart failure and stage 1 through stage 4 chronic kidney disease, or unspecified chronic kidney disease; N18.3 Chronic kidney disease, stage 3 (moderate); I34.0 Nonrheumatic mitral (valve) insufficiency; I50.9 Heart failure, unspecified; E87.6 Hypokalemia; G47.33 Obstructive sleep apnea (adult) (pediatric); J45.909 Unspecified asthma, uncomplicated; F32.9 Major depressive disorder, single episode, unspecified; F41.9 Anxiety disorder, unspecified; D64.9 Anemia, unspecified; Z95.0 Presence of cardiac pacemaker; E11.22 Type 2 diabetes mellitus with diabetic chronic kidney disease
CPT/HCPCS: OP; 99232-AI; 99233-AI; 99239; A9562; J1650; J1815; J1940; J3475

== ENCOUNTER 2017-10-01 03:17 | Inpatient (IN) | payer MEDICARE ==
[~2017-10-01] VITALS: Ht 162.6 cm; Wt 128.3 kg
[~2017-10-01 03:17] MED LIST changes: +CATAPRES 0.1MG0.1 MG PO; +NORVASC 5MG5 MG/TAB PO
[2017-10-01 03:58] LABS: MEAN CELL VOLUME 70 fl (80.0-100.0); MEAN CORPUSCULAR HGB CONC 29 g/dl (33.0-37.0); MEAN PLATELET VOLUME 9.9 fl (7.4-10.4); PLATELET COUNT 284 K/mm3 (130-400)
[2017-10-01 04:04] LABS: ALBUMIN 3.8 gm/dL (3.5-5.0); BILIRUBIN,TOTAL 0.7 mg/dL (0.0-1.0); CALCIUM 9.3 mg/dL (8.4-10.2); CREATININE, serum 1.12 mg/dL (0.52-1.25); POTASSIUM 4.3 mmol/L (3.4-5.0); TOTAL PROTEIN 8.1 gm/dL (6.4-8.2)
[2017-10-01 04:17] LABS: HEMATOCRIT 32.1 % (37.0-47.0); HEMOGLOBIN 9.3 g/dl (12.5-16.0); MEAN CORPUSCULAR HEMOGLOBIN 20 pg (27.0-31.0)
[2017-10-01 04:18] LABS: TROPONIN-I 0.079 ng/mL (0.000-0.034)
[2017-10-01 04:23] LABS: ANISOCYTOSIS 2+; BAND 21 % (0-10); HYPOCHROMIA 2+; LYMPHOCYTE 6 % (20.0-51.0); MICROCYTOSIS 2+; NEUTROPHILS 67 % (42.0-75.2); PLATELET ESTIMATE NORMAL (NORMAL)
[2017-10-01 09:07] VITALS: BP 140/64; PULSE 62; TEMP 98.4
[2017-10-01 11:54] VITALS: BP 120/63; PULSE 60; TEMP 98.7
[2017-10-01 16:52] VITALS: BP 137/60; PULSE 64; TEMP 98.4
[2017-10-01 18:02] LABS: MUCOUS Present /lpf; PH 6 (5-8); URINE APPEARANCE Cloudy; URINE BACTERIA Many /hpf; URINE BILIRUBIN Negative (NEGATIVE); URINE BLOOD 1+ (NEGATIVE); URINE COLOR Yellow; URINE GLUCOSE Negative (NEGATIVE); URINE KETONE Negative (NEGATIVE); URINE LEUKOCYTE ESTERASE 3+ (NEGATIVE); URINE NITRATE Positive (NEGATIVE); URINE PROTEIN(semi-quant) 1+ (NEGATIVE); URINE UROBILINOGEN >=4.0 mg/dL (NEGATIVE)
[2017-10-01 18:06] LABS: COLLECTION METHOD CLEAN CATCH
[2017-10-01 20:01] VITALS: BP 220/110; PULSE 75; TEMP 101.5
[2017-10-01 21:33] VITALS: BP 162/72; PULSE 76; TEMP 103
[2017-10-01 23:17] VITALS: BP 157/66; PULSE 78; TEMP 101.8
[2017-10-02 04:00] VITALS: BP 114/53; PULSE 61; TEMP 98.8
[2017-10-02 07:15] VITALS: BP 125/61; PULSE 72; TEMP 98.7
[2017-10-02 07:18] LABS: MEAN CELL VOLUME 70 fl (80.0-100.0); MEAN CORPUSCULAR HGB CONC 29 g/dl (33.0-37.0); PLATELET COUNT 240 K/mm3 (130-400); REDCELL DISTRIBUTION WIDTH-CV 19.2 % (11.5-14.5)
[2017-10-02 07:21] LABS: HEMATOCRIT 27.3 % (37.0-47.0); MEAN CORPUSCULAR HEMOGLOBIN 21 pg (27.0-31.0)
[2017-10-02 07:25] LABS: CALCIUM 8.6 mg/dL (8.4-10.2); CREATININE, serum 1.89 mg/dL (0.52-1.25); MAGNESIUM 1.5 mg/dL (1.6-2.3); POTASSIUM 4.1 mmol/L (3.4-5.0)
[2017-10-02 07:39] LABS: TROPONIN-I 0.114 ng/mL (0.000-0.034)
[2017-10-02 10:09] LABS: BAND 32 % (0-10); BASOPHIL 1 % (0-2); LYMPHOCYTE 10 % (20.0-51.0); NEUTROPHILS 51 % (42.0-75.2)
[2017-10-02 10:10] LABS: HYPOCHROMIA 3+
[2017-10-02 10:12] LABS: OVALOCYTES 1+; PLATELET ESTIMATE NORMAL (NORMAL); POIKILOCYTOSIS 1+
[2017-10-02 10:14] LABS: ANISOCYTOSIS 1+
[2017-10-02 12:36] VITALS: BP 125/49; PULSE 62; TEMP 98
[2017-10-02 17:09] VITALS: BP 117/66; PULSE 78; TEMP 98.1
[2017-10-02 21:12] VITALS: BP 150/56; PULSE 64; TEMP 100.1
[2017-10-03 00:35] VITALS: BP 118/53; PULSE 60; TEMP 97.5
[2017-10-03 03:03] VITALS: BP 127/73; PULSE 59; TEMP 98.7
[2017-10-03 06:44] LABS: MEAN CELL VOLUME 69 fl (80.0-100.0); MEAN CORPUSCULAR HGB CONC 30 g/dl (33.0-37.0); PLATELET COUNT 228 K/mm3 (130-400); RED BLOOD COUNT 3.93 M/mm3 (4.10-5.30); REDCELL DISTRIBUTION WIDTH-CV 18.8 % (11.5-14.5)
[2017-10-03 06:45] LABS: MEAN CORPUSCULAR HEMOGLOBIN 20 pg (27.0-31.0)
[2017-10-03 07:01] LABS: CALCIUM 8.3 mg/dL (8.4-10.2); CREATININE, serum 1.59 mg/dL (0.52-1.25); MAGNESIUM 2.5 mg/dL (1.6-2.3); POTASSIUM 4.1 mmol/L (3.4-5.0)
[2017-10-03 07:57] LABS: BAND 11 % (0-10); BASOPHIL 1 % (0-2); EOSINOPHIL 3 % (0-4); LYMPHOCYTE 14 % (20.0-51.0); NEUTROPHILS 61 % (42.0-75.2); PLATELET ESTIMATE NORMAL (NORMAL)
[2017-10-03 07:58] LABS: HYPOCHROMIA 3+
[2017-10-03 07:59] LABS: MICROCYTOSIS 1+
[2017-10-03 08:00] LABS: OVALOCYTES 1+
[2017-10-03 08:04] VITALS: BP 125/55; PULSE 62; TEMP 99.7
[2017-10-03 12:07] VITALS: BP 130/63; PULSE 60; TEMP 99.6
[2017-10-03] MEDS ORDERED: MACROBID 1100 MG/CAP PO (16:00)
[2017-10-03] MEDS ORDERED: NOVLOG SQ (16:01)
[2017-10-03] MEDS ORDERED: TYLENOL 325MG325 MG PO (16:01)
[2017-10-03] MEDS ORDERED: APRESOLINE 25MG25 MG PO (16:03)
[2017-10-03] MEDS ORDERED: COZAAR100 MG PO (16:13)
[2017-10-03 16:31] VITALS: BP 130/63; PULSE 60; TEMP 99.6
== END 2017-10-03 17:35 | DRG 305 ==
LOC: COL.ER 03:17 → MEDICAL 06:55
PROVIDERS: Emergency Medicine; Internal Medicine; Physician Assistant
DX: I16.0 Hypertensive urgency (principal); N39.0 Urinary tract infection, site not specified; N17.9 Acute kidney failure, unspecified; I10 Essential (primary) hypertension; B96.20 Unspecified Escherichia coli [E. coli] as the cause of diseases classified elsewhere; Z95.0 Presence of cardiac pacemaker; E83.42 Hypomagnesemia; E83.41 Hypermagnesemia; E11.9 Type 2 diabetes mellitus without complications; Z91.14 Patient's other noncompliance with medication regimen
CPT/HCPCS: 99223-AI; 99232-AI; 99233-AI; 99239; G0378; G8978-GP; G8979-GP; G8987-GO; G8988-GO; J0696; J1644; J1815; J1940; J2405; J3475; J7030

== ENCOUNTER → 2017-10-10 | Outpatient (REF) ==
[~2017-10-10] MED LIST changes: +MACROBID 1100 MG/CAP PO; +NOVLOG SQ; +TYLENOL 325MG325 MG PO
[2017-10-10 13:00] LABS: BASO % 0.6 % (0.0-2.0); EOS # 0.2 (0.0-0.7); EOS % 3.9 % (0-4.0); GRAN # 3.4 (1.4-6.5); GRAN % 55.9 % (42.2-75.2); LYMPH # 1.8 (1.2-3.4); LYMPH % 29.2 % (20.0-51.0); MEAN CELL VOLUME 69 fl (80.0-100.0); MEAN CORPUSCULAR HGB CONC 29 g/dl (33.0-37.0); MEAN PLATELET VOLUME 10.3 fl (7.4-10.4); MONO # 0.6 (0.1-0.6); MONO % 9.9 % (1.7-9.3); PLATELET COUNT 418 K/mm3 (130-400); RED BLOOD COUNT 4.34 M/mm3 (4.10-5.30); REDCELL DISTRIBUTION WIDTH-CV 19.9 % (11.5-14.5)
[2017-10-10 13:06] LABS: HEMATOCRIT 29.9 % (37.0-47.0); HEMOGLOBIN 8.7 g/dl (12.5-16.0); MEAN CORPUSCULAR HEMOGLOBIN 20 pg (27.0-31.0)
[2017-10-10 13:15] LABS: CALCIUM 9.2 mg/dL (8.4-10.2); CREATININE, serum 1.15 mg/dL (0.52-1.25); MAGNESIUM 1.4 mg/dL (1.6-2.3); POTASSIUM 4.5 mmol/L (3.4-5.0)
== END ==
LOC: ZCOL.LAB 12:54
PROVIDERS: Emergency Medicine
DX: E11.9 Type 2 diabetes mellitus without complications (principal); M62.81 Muscle weakness (generalized); Z95.0 Presence of cardiac pacemaker; Z79.02 Long term (current) use of antithrombotics/antiplatelets

== ENCOUNTER → 2017-10-19 | Outpatient (REF) ==
[2017-10-19 13:39] LABS: COLLECTION METHOD CLEAN CATCH
[2017-10-19 13:45] LABS: BASO % 0.7 % (0.0-2.0); EOS # 0.2 (0.0-0.7); EOS % 3.6 % (0-4.0); GRAN # 3.3 (1.4-6.5); GRAN % 55.6 % (42.2-75.2); LYMPH # 1.7 (1.2-3.4); LYMPH % 29.2 % (20.0-51.0); MEAN CELL VOLUME 69 fl (80.0-100.0); MEAN CORPUSCULAR HGB CONC 30 g/dl (33.0-37.0); MONO # 0.6 (0.1-0.6); MONO % 10.6 % (1.7-9.3); PLATELET COUNT 330 K/mm3 (130-400); RED BLOOD COUNT 4.19 M/mm3 (4.10-5.30); REDCELL DISTRIBUTION WIDTH-CV 21.2 % (11.5-14.5)
[2017-10-19 13:47] LABS: HEMATOCRIT 28.7 % (37.0-47.0); HEMOGLOBIN 8.5 g/dl (12.5-16.0); MEAN CORPUSCULAR HEMOGLOBIN 20 pg (27.0-31.0)
[2017-10-19 13:49] LABS: PH 5 (5-8); SQUAMOUS EPITHELIAL 0-2 /hpf; URINE APPEARANCE Clear; URINE BACTERIA None Seen /hpf; URINE BILIRUBIN Negative (NEGATIVE); URINE BLOOD Negative (NEGATIVE); URINE COLOR Yellow; URINE GLUCOSE Negative (NEGATIVE); URINE KETONE Negative (NEGATIVE); URINE LEUKOCYTE ESTERASE Negative (NEGATIVE); URINE NITRATE Negative (NEGATIVE); URINE PROTEIN(semi-quant) Negative (NEGATIVE); URINE UROBILINOGEN Negative (NEGATIVE)
[2017-10-19 13:55] LABS: ALBUMIN 3.3 gm/dL (3.5-5.0); BILIRUBIN,TOTAL 0.4 mg/dL (0.0-1.0); CALCIUM 9.2 mg/dL (8.4-10.2); CREATININE, serum 1.12 mg/dL (0.52-1.25); POTASSIUM 4.7 mmol/L (3.4-5.0); TOTAL PROTEIN 6.8 gm/dL (6.4-8.2)
== END ==
LOC: ZCOL.LAB 13:33
PROVIDERS: Emergency Medicine
DX: D64.9 Anemia, unspecified (principal); N39.0 Urinary tract infection, site not specified; E11.9 Type 2 diabetes mellitus without complications

== ENCOUNTER 2018-05-16 12:55 | Emergency (ER) | payer MEDICARE ==
[~2018-05-16] VITALS: Wt 131.8 kg
[2018-05-16 13:01] VITALS: TEMP 97.9
[2018-05-16 13:27] LABS: BASO % 0.3 % (0.0-2.0); EOS # 0.2 (0.0-0.7); EOS % 2.1 % (0-4.0); GRAN # 5.3 (1.4-6.5); GRAN % 74.4 % (42.2-75.2); LYMPH # 1.1 (1.2-3.4); LYMPH % 14.7 % (20.0-51.0); MEAN CELL VOLUME 67 fl (80.0-100.0); MEAN CORPUSCULAR HGB CONC 30 g/dl (33.0-37.0); MONO # 0.6 (0.1-0.6); MONO % 8.1 % (1.7-9.3); PLATELET COUNT 200 K/mm3 (130-400); REDCELL DISTRIBUTION WIDTH-CV 22.2 % (11.5-14.5)
[2018-05-16 13:32] LABS: ALBUMIN 3.8 gm/dL (3.5-5.0); CALCIUM 9.2 mg/dL (8.4-10.2); CREATININE, serum 1.37 mg/dL (0.52-1.25); POTASSIUM 3.8 mmol/L (3.4-5.0); TOTAL PROTEIN 7.7 gm/dL (6.4-8.2)
[2018-05-16 13:37] LABS: HEMATOCRIT 29.3 % (37.0-47.0); HEMOGLOBIN 8.8 g/dl (12.5-16.0); MEAN CORPUSCULAR HEMOGLOBIN 20 pg (27.0-31.0)
[2018-05-16] MEDS ORDERED: LASIX 40MG TABL40 MG PO (13:41)
[2018-05-16] MEDS ORDERED: K-TAB10 (13:42)
[2018-05-16 13:48] LABS: TROPONIN-I 0.066 ng/mL (0.000-0.035)
[2018-05-16 15:37] VITALS: BP 128/95; PULSE 60
== END 2018-05-16 15:45 | disposition short-term general hospital (02) ==
LOC: COL.ER 12:55
PROVIDERS: Emergency Medicine
DX: R79.89 Other specified abnormal findings of blood chemistry (principal); I50.9 Heart failure, unspecified; I11.0 Hypertensive heart disease with heart failure; J45.909 Unspecified asthma, uncomplicated; Z79.02 Long term (current) use of antithrombotics/antiplatelets; Z79.4 Long term (current) use of insulin
CPT/HCPCS: J1940

== ENCOUNTER 2018-06-22 15:50 | Emergency (ER) | payer MEDICARE ==
[~2018-06-22] VITALS: Ht 162.6 cm; Wt 131.8 kg
[~2018-06-22 15:50] MED LIST changes: +K-TAB10; +LASIX 40MG TABL40 MG PO
[2018-06-22 15:55] VITALS: TEMP 101.7
[2018-06-22 16:17] LABS: BASO % 0.4 % (0.0-2.0); EOS # 0.1 (0.0-0.7); EOS % 1.1 % (0-4.0); GRAN # 5.1 (1.4-6.5); GRAN % 67.8 % (42.2-75.2); LYMPH # 1.4 (1.2-3.4); MEAN CELL VOLUME 69 fl (80.0-100.0); MEAN CORPUSCULAR HGB CONC 29 g/dl (33.0-37.0); MEAN PLATELET VOLUME 9.7 fl (7.4-10.4); MONO # 0.9 (0.1-0.6); MONO % 11.2 % (1.7-9.3); PLATELET COUNT 335 K/mm3 (130-400); RED BLOOD COUNT 4.33 M/mm3 (4.10-5.30); REDCELL DISTRIBUTION WIDTH-CV 22.1 % (11.5-14.5)
[2018-06-22 16:21] LABS: HEMATOCRIT 29.7 % (37.0-47.0); HEMOGLOBIN 8.5 g/dl (12.5-16.0); INR 1.1 (0.8-3.0); MEAN CORPUSCULAR HEMOGLOBIN 20 pg (27.0-31.0); PROTHROMBIN TIME 12.8 SECONDS (9.7-12.8)
[2018-06-22 16:39] LABS: ALBUMIN 3.8 gm/dL (3.5-5.0); BILIRUBIN,TOTAL 0.4 mg/dL (0.0-1.0); CALCIUM 9.7 mg/dL (8.4-10.2); CREATININE, serum 1.5 (0.52-1.25); POTASSIUM 4.5 mmol/L (3.4-5.0)
[2018-06-22 16:52] LABS: TROPONIN-I 0.131 ng/mL (0.000-0.035)
[2018-06-22 16:53] LABS: COLLECTION METHOD CATHETER
[2018-06-22 17:01] LABS: PH 7 (5-8); SQUAMOUS EPITHELIAL 0-2 /hpf; URINE APPEARANCE Hazy; URINE BACTERIA None Seen /hpf; URINE BILIRUBIN Negative (NEGATIVE); URINE BLOOD Negative (NEGATIVE); URINE COLOR Straw; URINE GLUCOSE Negative (NEGATIVE); URINE KETONE Negative (NEGATIVE); URINE LEUKOCYTE ESTERASE 3+ (NEGATIVE); URINE NITRATE Negative (NEGATIVE); URINE PROTEIN(semi-quant) Negative (NEGATIVE); URINE UROBILINOGEN Negative (NEGATIVE)
[2018-06-22] MEDS ORDERED: OMNICEF 300MG300 MG PO (18:24)
[2018-06-22 19:28] VITALS: BP 145/76; PULSE 62
== END 2018-06-22 19:28 | disposition home or self-care (01) ==
LOC: COL.ER 15:50
PROVIDERS: Emergency Medicine
DX: N39.0 Urinary tract infection, site not specified (principal); R07.89 Other chest pain; E11.9 Type 2 diabetes mellitus without complications; I10 Essential (primary) hypertension; E78.5 Hyperlipidemia, unspecified; J45.909 Unspecified asthma, uncomplicated; Z95.0 Presence of cardiac pacemaker; Z90.710 Acquired absence of both cervix and uterus; Z95.5 Presence of coronary angioplasty implant and graft; Z79.02 Long term (current) use of antithrombotics/antiplatelets; Z79.4 Long term (current) use of insulin
CPT/HCPCS: A4216; J0696; J1885; J7030

== ENCOUNTER 2018-08-02 05:27 | Observation (INO) | payer MEDICARE ==
[2018-08-02] VITALS (448 sets, daily range): BP systolic 116–201; BP diastolic 65–122; PULSE 61–79; TEMP 97.8–99.1; O2SAT 88–100
[~2018-08-02] VITALS: Ht 167.6 cm; Wt 135.0 kg
[~2018-08-02 05:27] MED LIST changes: +00186-0372-20 IH; +ALDACTONE 25MG25 M1 PO; +ALDOMET 250MG250 MG PO; +APRESOLINE50 MG PO; +IPRATROPIUM BROM3 M1 IH; +ISOSORBIDE MON120 MG PO; -K-TAB10; +K-TAB20 PO; +LASIX 20MG TABL20 MG PO; -LASIX 40MG TABL40 MG PO; +MAGNESIUM ELEM300 MG PO; +MELATONIN3 MG PO; +NOVOLOG 100U100 U/M1 SQ; +OMNICEF 300MG300 MG PO
[2018-08-02 05:48] LABS: BASO # 0.1 (0.0-0.2); BASO % 0.7 % (0.0-2.0); EOS # 0.2 (0.0-0.7); EOS % 2.2 % (0-4.0); GRAN # 4.8 (1.4-6.5); GRAN % 64.7 % (42.2-75.2); HEMATOCRIT 28.7 % (37.0-47.0); HEMOGLOBIN 8.2 g/dl (12.5-16.0); LYMPH # 1.6 (1.2-3.4); LYMPH % 21.7 % (20.0-51.0); MEAN CELL VOLUME 69 fl (80.0-100.0); MEAN CORPUSCULAR HEMOGLOBIN 20 pg (27.0-31.0); MEAN CORPUSCULAR HGB CONC 29 g/dl (33.0-37.0); MEAN PLATELET VOLUME 9.1 fl (7.4-10.4); MONO # 0.7 (0.1-0.6); PLATELET COUNT 265 K/mm3 (130-400); RED BLOOD COUNT 4.18 M/mm3 (4.10-5.30); REDCELL DISTRIBUTION WIDTH-CV 22.5 % (11.5-14.5)
[2018-08-02 05:50] LABS: INR 1.1 (0.8-3.0); PROTHROMBIN TIME 13.4 SECONDS (9.7-12.8)
[2018-08-02 05:53] LABS: PARTIAL THROMBOPLASTIN TIME 27.3 SECONDS (26.0-37.0)
[2018-08-02 05:56] LABS: ALBUMIN 3.7 gm/dL (3.5-5.0); BILIRUBIN,TOTAL 0.5 mg/dL (0.0-1.0); CALCIUM 9.3 mg/dL (8.4-10.2); CREATININE, serum 1.44 (0.52-1.25); POTASSIUM 4.7 mmol/L (3.4-5.0); TOTAL PROTEIN 7.8 gm/dL (6.4-8.2)
[2018-08-02 06:09] LABS: TROPONIN-I 0.183 ng/mL (0.000-0.035)
[2018-08-02 07:37] LABS: ARTERIAL BLD GAS O2 SATURATION 97.4 % (92-100); ARTERIAL BLD GAS TCO2 CT 27.6; ARTERIAL BLOOD GAS BASE EXCESS 1.5 (-2-2); ARTERIAL BLOOD GAS HCO3 26.3 meq/L (22-26); ARTERIAL BLOOD GAS PCO2 42.4 mmHg (35-45); ARTERIAL BLOOD GAS pH 7.41 (7.35-7.45)
--- NOTE | 2018-08-02 12:55 | NUR ---
Report received from ER.
[2018-08-02 13:46] LABS: ARTERIAL BLD GAS O2 SATURATION 97.5 % (92-100); ARTERIAL BLD GAS TCO2 CT 32.5; ARTERIAL BLOOD GAS BASE EXCESS 4.9 (-2-2); ARTERIAL BLOOD GAS HCO3 30.8 meq/L (22-26); ARTERIAL BLOOD GAS PCO2 53.3 mmHg (35-45); ARTERIAL BLOOD GAS pH 7.38 (7.35-7.45)
--- NOTE | 2018-08-02 14:24 | NUR ---
Patient taken off bipap, placed on 4L/NC by RT Selina.
--- NOTE | 2018-08-02 14:33 | NUR ---
parking technician in room for echo.
--- NOTE | 2018-08-02 15:50 | NUR ---
Purewick placed on for incontinence.
--- NOTE | 2018-08-02 19:05 | NUR ---
Bedside report given to JADEN Eric.
--- NOTE | 2018-08-02 19:07 | NUR ---
Bedside report received from JADEN Rodriguez. Drips and lines reviewed. Transfer of care at this time.
--- NOTE | 2018-08-02 20:00 | NUR ---
Patient sitting up in bed eating at this time. Assessment complete. Patient has no complaints of pain. She is alert and oriented, just talks very slowly. Assessment reveals diminished lungs sounds in all zimmer with fince crackles in the bases. HR and Rhythm regular, heart sounds is muffled/distant. Bowels are active x4. Vitals are stable on the nitro drip. Patient has no further needs at this time. Will continue to monitor. Call light within reach.
--- NOTE | 2018-08-02 21:40 | NUR ---
Patient has finished her dinner. Removed tray from the room. Helped patient in too a mor comfortable position. Patient is requesting to be put on the BiPAP now so she can go to sleep. Called RT Donnell, who will be over soon to assist with mask.
[2018-08-03] VITALS (794 sets, daily range): BP systolic 107–155; BP diastolic 64–88; PULSE 54–62; TEMP 97.5–98.7; O2SAT 93–100
--- NOTE | 2018-08-03 | NUR ---
Patient awake at this time requesting to have her BiPAP mask adjusted and for a drink of water. Provided both to patient. She is alert and oriented, no compaints of pain. Vitals remain stable on present dose of nitro. Will continue to monitor. No further needs. Call light within reach.
--- NOTE | 2018-08-03 04:00 | NUR ---
Patient awake at this time and requesting to take BiPAP and put back on NC. Assisted with this. Assisted patient with getting cleaned up and fresh linens. Repositioned for comfort. Patient's vitals have remained stable. No further needs at this time. Will continue to monitor. Call light within reach.
[2018-08-03 05:35] LABS: BASO % 0.5 % (0.0-2.0); EOS # 0.2 (0.0-0.7); EOS % 3.3 % (0-4.0); GRAN # 3.9 (1.4-6.5); GRAN % 63.8 % (42.2-75.2); LYMPH # 1.3 (1.2-3.4); LYMPH % 21.5 % (20.0-51.0); MEAN CELL VOLUME 68 fl (80.0-100.0); MEAN CORPUSCULAR HGB CONC 29 g/dl (33.0-37.0); MEAN PLATELET VOLUME 9.3 fl (7.4-10.4); MONO # 0.6 (0.1-0.6); MONO % 10.2 % (1.7-9.3); PLATELET COUNT 240 K/mm3 (130-400); RED BLOOD COUNT 4.05 M/mm3 (4.10-5.30); REDCELL DISTRIBUTION WIDTH-CV 22.5 % (11.5-14.5)
[2018-08-03 05:36] LABS: HEMATOCRIT 27.6 % (37.0-47.0); MEAN CORPUSCULAR HEMOGLOBIN 20 pg (27.0-31.0)
[2018-08-03 05:44] LABS: CALCIUM 9.1 mg/dL (8.4-10.2); CREATININE, serum 1.51 (0.52-1.25); POTASSIUM 4.4 mmol/L (3.4-5.0)
--- NOTE | 2018-08-03 07:10 | NUR ---
Bedside report given to JADEN Strickland. All lines and medications reviewed. Transfer of care at this time.
--- NOTE | 2018-08-03 11:12 | NUR ---
PURE WICK URINE COLLECTION DEVICE REMOVED. ATTENDS PUT ON. ASSISTED PT TO RECLINER CHAIR. PT ABLE TO BEAR WEIGHT WITHOUT DIFFICULTY. PT STANDBY ASSIST TO CHAIR. PT DID BECOME DYSPNEIC UPON MINOR EXERTION. PT DID STATE SHE IS NERVOUS ABOUT "THEM" (STAFF AND FAMILY) WANTING TO SEND HER TO [facility]. PT STATES "I DON'T WANT TO GO. I'M NOT GOING"
--- NOTE | 2018-08-03 11:20 | NUR ---
First visit from the dam operator. No needs right now.
--- NOTE | 2018-08-03 11:40 | NUR ---
SW attended clinical rounds to discuss discharge planning. Patient lives at home with her daughter. Patient's PCP is Dr Gunn and she obtains prescriptions from [facility] pharmacy. Patient receives [facility] for PT and alf up to 3x per week. She was last seen by home health on 07/24. ANTWON confirmed all of this with [facility]. ANTWON and RODM reported to patient and son that patient's family has concerns about her returning home once she is discharged and that SNF is recommended. Patient's son is agreeable and initially patient was agreeable as well. Patient was given the medicare.gov resouce list for SNF. She reviewed it and chose 1. [facility] and 2. [facility]. When SW presented choice form to patient, she refused to sign it and reported she "wants to go home." SW informed patient that going to a facility is not necessarily permanent and the goal would be for her to return home as long as that is a safe option. Patient son also encouraged patient to go to SNF as well. Patient continued to refuse to sign choice. ANTWON reported she will return after patient and son discuss SNF.
--- NOTE | 2018-08-03 13:47 | NUR ---
AWAITING TO HEAR FROM [employer]STATE RENTAL AGENT IF PT IS ACCEPTED TO REHAB FACILITY.
--- NOTE | 2018-08-03 14:55 | NUR ---
DPOA completed with pt and pt's daughter Evette. Original and 2 copies given to pt and 1 copy placed on chart.
--- NOTE | 2018-08-03 14:59 | NUR ---
ANTWON spoke with Conor from [facility]. They report that patient's insurance requires prior auth for SNF but they said that insurance will give them an approval or denial today. If insurance approves SNF, [facility] will be able to accept patient tomorrow. ANTWON updates nurse practitioner and ICU nurse. ANTWON then spoke with Conor again and she reports they can accept tomorrow as long as ANTWON faxes clinical updates in the morning. ANTWON reported this to nurse practitionor and ICU nurse. ICU nurse will inform patient and family.
--- NOTE | 2018-08-03 15:28 | NUR ---
REPORT CALLED TO RENETTA STANLEY ON MEDICAL FLOOR.
--- NOTE | 2018-08-03 16:00 | NUR ---
PT TRANSFERRED VIA WHEELCHAIR TO MEDICAL ROOM 351 WITH FAMILY AT PT'S SIDE. PT'S BELONGINGS TRANSFERRED WITH PATIENT INCLUDING HER CELL PHONE. CONTACT MADE WITH RENETTA UPON TRANSFER.
--- NOTE | 2018-08-03 16:15 | NUR ---
Pt arrived to floor at this time with ICU staff. Oriented to room, fresh ice water provided per request and called for ice tea. Denies needs, will continue to monitor.
--- NOTE | 2018-08-03 18:35 | NUR ---
Pt resting in chair at side of bed waiting for supper. Up around room as needed. Denies needs, will give bedside shift report to nightshift nurse who will resume care.
--- NOTE | 2018-08-03 22:05 | NUR ---
When asking patient about CHF notebook, patient states that she used to have one, but has lost it. This nurse got patient a new notebook, and tried going over it with patient. Patient looked at it for a little bit with this nurse, as this nurse went over all the tabs in the book, but patient stated she did not want to go over it tonight. Stated she would look over it tomorrow.
--- NOTE | 2018-08-03 22:28 | NUR ---
Patient assessed around 2100. Alert and oriented, and able to make needs known. Denied having pain and discomfort. Peripheral INT to left AC flushed. Site is without redness, warmth, swelling, and pain. On oxygen at 2 L/min via NC. Does report SOB and dyspnea on exertion. LS wheezes upper lobes, diminished throughout. HRR. BSAx4. 2+ edema to BLE. Patient assisted into bed after assessment. Was incontinent of bladder. Refused to go to the bathroom, stating that it was too far for her to walk. Did allow this nurse to change pull up and hospital gown, and provide perineal hygiene care. Also refusing to allow this nurse to put dentures in denture cup. Labored breathing during exertion. Voices no other needs, questions, or concerns at this time. Resting in bed watching TV at this time. Call light is within reach.
[2018-08-04 00:24] VITALS: BP 158/79; PULSE 61; TEMP 97.5
--- NOTE | 2018-08-04 00:38 | NUR ---
Has denied having pain and discomfort so far this shift. Resting in bed with eyes closed at this time. CPAP on. Call light is within reach.
--- NOTE | 2018-08-04 03:17 | NUR ---
RT had given patient a breathing treatment. Afterwards, patient had her CPAP on, but complaining that she couldnt breath. RT notified and this nurse went into room as well. Patient wanted CPAP off. Patient put on oxygen at 2 L/min via NC and taken off CPAP as requested. States she is feeling better at this time. Resting in bed with call light within reach. Voices no other needs, questions, or concerns at this time.
[2018-08-04 05:01] VITALS: BP 151/94; PULSE 61; TEMP 97.9
--- NOTE | 2018-08-04 05:07 | NUR ---
Patient wore CPAP for most of the night without any complaints. Wearing oxygen at 2 L/min via NC at this time. Patient woke up confused on time, and believed it was still the afternoon. Did not remember going to bed. After talking with patient she was redirected. Patient stated "well I must have slept good." Repositioned in bed. Voices no other questions, needs, or concerns at this time. In bed watching TV at this time. Call light is within reach.
--- NOTE | 2018-08-04 07:12 | NUR ---
Report given to day shift nurse.
[2018-08-04 07:44] VITALS: BP 175/70; PULSE 59; TEMP 98.3
[2018-08-04] MEDS ORDERED: TYLENOL 325MG325 MG PO (08:00)
--- NOTE | 2018-08-04 08:24 | NUR ---
Pt lying in bed alert and oriented. Breathing even and unlabored, denies shortness of breath. Breath sounds diminished in all zimmer, not taking very deep breaths when prompted. Denies any pain at this time. Completed morning assessment. Bilateral lower legs have +1 edema, C/O pain when touched to bilater lower legs. Denies any other needs at this time. Call light in reach.
[2018-08-04 08:35] LABS: CREATININE, serum 1.35 (0.52-1.25); POTASSIUM 4.4 mmol/L (3.4-5.0)
[2018-08-04 09:45] VITALS: BP 175/70; PULSE 59; TEMP 98.3
--- NOTE | 2018-08-04 11:17 | NUR ---
Informed pt Charlie Zamora would be here to pick her up in an hour. Pt requested address to tell her son. Call light in reach.
--- NOTE | 2018-08-04 11:24 | NUR ---
Visited, provided spiritural care, listened, and prayed with patient.
[2018-08-04 11:40] VITALS: BP 134/65; PULSE 64; TEMP 98.3
--- NOTE | 2018-08-04 11:51 | NUR ---
Removed INT to LAC, catheter tip intact, no redness or swelling noted. Provided pt with a bed bath. Denies any needs at this time. Call light in reach.
--- NOTE | 2018-08-04 12:33 | NUR ---
Charlie moved car pick up driver time to 3pm, informed pt of new time.
--- NOTE | 2018-08-04 15:36 | NUR ---
[facility] did not [facility] oxygen so they borrowed a tank and will bring it back. Pt left on 2l NC. All paperwork and personal belongings with pt. Called report to Charlie.
== END 2018-08-04 15:35 ==
LOC: COL.ER 05:27 → ICU 07:15 → MEDICAL 08-03 16:02
PROVIDERS: Emergency Medicine; Nurse Practitioner Family; ADMIT Hospitalist
DX: I13.0 Hypertensive heart and chronic kidney disease with heart failure and stage 1 through stage 4 chronic kidney disease, or unspecified chronic kidney disease (principal); E11.22 Type 2 diabetes mellitus with diabetic chronic kidney disease; I50.30 Unspecified diastolic (congestive) heart failure; N18.3 Chronic kidney disease, stage 3 (moderate); I16.0 Hypertensive urgency; D50.9 Iron deficiency anemia, unspecified; E78.5 Hyperlipidemia, unspecified; G47.33 Obstructive sleep apnea (adult) (pediatric); F32.9 Major depressive disorder, single episode, unspecified; N32.81 Overactive bladder; Z79.02 Long term (current) use of antithrombotics/antiplatelets; D56.9 Thalassemia, unspecified; J45.909 Unspecified asthma, uncomplicated; M81.0 Age-related osteoporosis without current pathological fracture; H20.9 Unspecified iridocyclitis; R09.02 Hypoxemia; Z90.710 Acquired absence of both cervix and uterus; E78.00 Pure hypercholesterolemia, unspecified; Z82.49 Family history of ischemic heart disease and other diseases of the circulatory system; Z84.1 Family history of disorders of kidney and ureter; Z88.6 Allergy status to analgesic agent; Z88.8 Allergy status to other drugs, medicaments and biological substances; I08.1 Rheumatic disorders of both mitral and tricuspid valves
CPT/HCPCS: 99239; G0378; J1815; J1940

== ENCOUNTER → 2018-08-14 | Outpatient (REF) ==
[~2018-08-14] MED LIST changes: +DULCOLAX S10 MG/SUPP RC; +IMODIUM 2MG CAPS2 MG PO; +LASIX 40MG TABL40 MG PO; +LASIX 80MG TABL80 MG PO; +MILK OF MA400 MG/52 PO; +TYLENOL SU650 MG/SUP RC
[2018-08-14 14:24] LABS: COLLECTION METHOD CLEAN CATCH
[2018-08-14 14:42] LABS: PH 6 (5-8); SQUAMOUS EPITHELIAL 0-2 /hpf; URINE APPEARANCE Clear; URINE BACTERIA None Seen /hpf; URINE BILIRUBIN Negative (NEGATIVE); URINE BLOOD Negative (NEGATIVE); URINE COLOR Yellow; URINE GLUCOSE Negative (NEGATIVE); URINE KETONE Negative (NEGATIVE); URINE LEUKOCYTE ESTERASE Negative (NEGATIVE); URINE NITRATE Negative (NEGATIVE); URINE PROTEIN(semi-quant) Negative (NEGATIVE); URINE RBC 0-2 /hpf; URINE UROBILINOGEN Negative (NEGATIVE); URINE WBC 0-2 /hpf
== END ==
LOC: ZCOL.LAB 14:21
PROVIDERS: Nurse Practitioner Family
DX: Z01.89 Encounter for other specified special examinations (principal)

== ENCOUNTER → 2018-08-15 | Outpatient (REF) ==
[2018-08-15 10:28] LABS: CALCIUM 9.6 mg/dL (8.4-10.2); CREATININE, serum 1.8 (0.52-1.25); POTASSIUM 4.7 mmol/L (3.4-5.0)
== END ==
LOC: ZCOL.LAB 09:52
PROVIDERS: Internal Medicine
DX: N18.3 Chronic kidney disease, stage 3 (moderate) (principal)

== ENCOUNTER → 2018-08-16 | Outpatient (CLI) | payer MEDICARE ==
[~2018-08-16] MED LIST changes: +PREDNISONE10 MG PO; +XANAX .25M0.25 MG/TA PO
[2018-08-16 18:38] LABS: COLLECTION METHOD CLEAN CATCH
[2018-08-16 18:55] LABS: MUCOUS Present /lpf; PH 6 (5-8); SQUAMOUS EPITHELIAL None Seen /hpf; URINE APPEARANCE Clear; URINE BACTERIA None Seen /hpf; URINE BILIRUBIN Negative (NEGATIVE); URINE BLOOD Negative (NEGATIVE); URINE COLOR Yellow; URINE GLUCOSE Negative (NEGATIVE); URINE KETONE Negative (NEGATIVE); URINE LEUKOCYTE ESTERASE Negative (NEGATIVE); URINE NITRATE Negative (NEGATIVE); URINE PROTEIN(semi-quant) Negative (NEGATIVE); URINE RBC 0-2 /hpf; URINE UROBILINOGEN Negative (NEGATIVE)
== END ==
LOC: ZCOL.LAB 17:02
PROVIDERS: Internal Medicine
DX: N39.0 Urinary tract infection, site not specified (principal)

== ENCOUNTER 2018-08-17 00:43 | Inpatient (IN) | payer MEDICARE, OTHER ==
[~2018-08-17] VITALS: Ht 162.6 cm; Wt 111.5 kg
[~2018-08-17 00:43] MED LIST changes: -DULCOLAX S10 MG/SUPP RC; -IMODIUM 2MG CAPS2 MG PO; -LASIX 40MG TABL40 MG PO; -LASIX 80MG TABL80 MG PO; -MILK OF MA400 MG/52 PO; -PREDNISONE10 MG PO; -TYLENOL SU650 MG/SUP RC; -XANAX .25M0.25 MG/TA PO
[2018-08-17 02:34] LABS: BASO # 0.1 (0.0-0.2); BASO % 0.7 % (0.0-2.0); EOS # 0.3 (0.0-0.7); EOS % 4.2 % (0-4.0); GRAN # 4.9 (1.4-6.5); GRAN % 61.4 % (42.2-75.2); LYMPH # 1.7 (1.2-3.4); LYMPH % 21.3 % (20.0-51.0); MEAN CELL VOLUME 68 fl (80.0-100.0); MEAN CORPUSCULAR HGB CONC 29 g/dl (33.0-37.0); MEAN PLATELET VOLUME 9.7 fl (7.4-10.4); MONO % 11.9 % (1.7-9.3); PLATELET COUNT 344 K/mm3 (130-400); RED BLOOD COUNT 4.79 M/mm3 (4.10-5.30)
[2018-08-17 02:38] LABS: HEMATOCRIT 32.4 % (37.0-47.0); HEMOGLOBIN 9.3 g/dl (12.5-16.0); MEAN CORPUSCULAR HEMOGLOBIN 19 pg (27.0-31.0)
[2018-08-17 02:43] LABS: LACTIC ACID 1.2 mmol/L (0.4-2.0)
[2018-08-17 02:44] LABS: BILIRUBIN,TOTAL 0.5 mg/dL (0.0-1.0); CREATININE, serum 1.95 (0.52-1.25); POTASSIUM 4.7 mmol/L (3.4-5.0); TOTAL PROTEIN 8.4 gm/dL (6.4-8.2)
[2018-08-17 02:55] LABS: TROPONIN-I 0.227 ng/mL (0.000-0.035)
[2018-08-17] MEDS ORDERED: LASIX 40MG TABL40 MG PO (05:43)
[2018-08-17] MEDS ORDERED: LASIX 80MG TABL80 MG PO (05:44)
[2018-08-17 05:52] VITALS: BP 154/88; PULSE 59; TEMP 97.4
[2018-08-17] MEDS ORDERED: TYLENOL SU650 MG/SUP RC (05:56)
[2018-08-17] MEDS ORDERED: DULCOLAX S10 MG/SUPP RC (05:57)
[2018-08-17] MEDS ORDERED: IMODIUM 2MG CAPS2 MG PO (05:57)
[2018-08-17] MEDS ORDERED: LASIX 20MG TABL20 MG PO (05:59)
[2018-08-17] MEDS ORDERED: MILK OF MA400 MG/52 PO (06:00)
[2018-08-17] MEDS ORDERED: 00186-0372-20 IH (06:09)
--- NOTE | 2018-08-17 06:29 | NUR ---
PT ARRIVED TO MEDICAL UNIT. VSS. BIPAP ON. EX WHEEZING NOTED IN LUNGS X4. RADIAL AND PEDAL PULSES FELT. 1+ EDEMA IN BILATERAL LEGS. REPORTS NO PAIN. BOWEL SOUNDS NOTED. TELE ON. NO NEEDS AT THIS TIME
--- NOTE | 2018-08-17 07:00 | NUR ---
PT LAYING IN BED ALERT BUT NOT ORIENTED. DOES NOT ANSWER QUESTIONS. ASSESSMENT COMPLETED TO PRIOR KNOWN KNOWLEDGE AND [facility] DATA. NO PAIN. BIPAP ON, NO NEEDS AT THIS TIME. REPORTS GIVEN TO JADEN PIKE
[2018-08-17 07:21] VITALS: BP 160/96; PULSE 61; TEMP 97.7
--- NOTE | 2018-08-17 08:10 | NUR ---
Assessment completed, alert/oriented to person and place, does not remember being brought in to the hospital or why she was brought in, she denies feeling "bad" and stated she was feeling fine yesterday, she dneies pain or discomfort, has a cough and stated this has been going on for quite some time now, she was wearing her bi-pap untill 0745/ now she is on o2 at 2L. which is her baseline requirment at home, nurse reported patient was combative in ER and would not allow anyone to place a ernst catheter/ she continues to refuse catheter at this time, she is incontinent which is a chronic issue for her, heart RRR, lungS CTA/ diminished, she denies other needs, will continue to monitor
[2018-08-17 12:11] LABS: ARTERIAL BLD GAS O2 SATURATION 84.5 % (92-100); ARTERIAL BLD GAS TCO2 CT 30.8; ARTERIAL BLOOD GAS BASE EXCESS 3.6 (-2-2); ARTERIAL BLOOD GAS HCO3 29.3 meq/L (22-26); ARTERIAL BLOOD GAS PCO2 49.5 mmHg (35-45); ARTERIAL BLOOD GAS PO2 53.6 mmHg (80-100); ARTERIAL BLOOD GAS pH 7.39 (7.35-7.45)
[2018-08-17 13:46] VITALS: BP 151/85; PULSE 70; TEMP 97.6
[2018-08-17 17:20] VITALS: BP 164/87; PULSE 65; TEMP 98.3
[2018-08-17 19:10] VITALS: BP 155/81; PULSE 67; TEMP 98.5
--- NOTE | 2018-08-17 21:00 | NUR ---
PT RESTING IN BED. A+OX4. REPORTS NO PAIN. PT NC ON. NO NEEDS AT THIS TIME. CALL LIGHT INREACH
--- NOTE | 2018-08-17 23:18 | NUR ---
REPORT GIVEN TO JADEN ROMANO
[2018-08-18 00:50] VITALS: BP 177/76; PULSE 69; TEMP 97.5
--- NOTE | 2018-08-18 02:12 | NUR ---
Took over care for patient at approximately 2300. Assessed around 2330. Denied having pain and discomfort. Peripheral INT flushed to right AC. Site is without redness, warmth, swelling, and pain. Does complain of SOB and dyspnea with exertion. Wears oxygen at 3 L/min via NC. Reports she wears 2 L baseline. LS expieratory wheezes in upper lobes, diminished lower. Frequent moist, productive cough. Able to produce thick yellow sputum for sputum culture, and taken to lab. HRR. BSAx4. 2+ edema BLE. Denies having any questions, needs, or concerns. Resting in bed with eyes closed at this time. Call light is within reach. Patient is on droplet precautions.
[2018-08-18 03:47] VITALS: BP 154/69; PULSE 65; TEMP 98.4
--- NOTE | 2018-08-18 05:40 | NUR ---
Patient wore BIPAP for short amount of time last night. Currently awake watching TV with oxygen on at 3 L/min via NC. Denies having SOB and dyspnea at this time. No cough at this time, but has occasional moist cough. Continues on droplet precautions for postive RVP. Denies having pain and discomfort. Voices no questions, needs, or concerns at this time. Call light is within reach.
--- NOTE | 2018-08-18 07:26 | NUR ---
Report given to day shift nurse.
[2018-08-18 08:49] LABS: BASO % 0.1 % (0.0-2.0); GRAN # 8.9 (1.4-6.5); GRAN % 86.4 % (42.2-75.2); LYMPH % 9.8 % (20.0-51.0); MEAN CELL VOLUME 67 fl (80.0-100.0); MEAN CORPUSCULAR HGB CONC 29 g/dl (33.0-37.0); MONO # 0.3 (0.1-0.6); MONO % 3.2 % (1.7-9.3); PLATELET COUNT 328 K/mm3 (130-400); RED BLOOD COUNT 4.46 M/mm3 (4.10-5.30); REDCELL DISTRIBUTION WIDTH-CV 21.6 % (11.5-14.5)
[2018-08-18 09:00] LABS: CALCIUM 9.3 mg/dL (8.4-10.2); CREATININE, serum 1.47 (0.52-1.25); POTASSIUM 4.7 mmol/L (3.4-5.0)
[2018-08-18 09:04] LABS: HEMOGLOBIN 8.7 g/dl (12.5-16.0); MEAN CORPUSCULAR HEMOGLOBIN 20 pg (27.0-31.0)
[2018-08-18 09:17] VITALS: BP 139/60; PULSE 69; TEMP 98.3
--- NOTE | 2018-08-18 09:52 | NUR ---
Assessment completed, vital signs stable, dnies pain or discomfort, patient is alert and appropriate mental status, she is able to follow commands and answers quesitons approrpiately, she is oriented to person/ place and easily reoriented to time , she reports she cannot read clock as [facility], her resp. vial pannel came back + therefore she is in droplet p/c for that, lungs CTA/diminished, heart RRR/distal pulses are palpable, she is incontinent of urine refused ernst cath therefore I/O are inaccurate, she is sititng up eatin breakfast and denies needs
[2018-08-18 13:18] VITALS: BP 151/95; PULSE 59; TEMP 97.6
[2018-08-18 17:39] VITALS: BP 159/103; PULSE 66; TEMP 99
[2018-08-18 18:56] VITALS: BP 154/71; PULSE 70; TEMP 98.1
--- NOTE | 2018-08-18 21:30 | NUR ---
Patient assessed at this time. Denies having pain and discomfort. Peripheral INT to right AC flushed. Site is without redness, warmth, swelling, and pain. Wearing oxygen at 3 L/min via NC. Denies having SOB and dyspnea. LS CTA in upper lobes, diminished in lower. HRR. BSAx4. Incontinent of bladder. Patient needs lots of encouragement to go to the bathroom and allow staff to help clean her up, as patient says she will do it herself, but does not. Also reminded that we want a staff member there during transfers for safety. Voices no questions, needs, or concerns at this time. Resting in bed with call light within reach.
[2018-08-19] VITALS: BP 160/81; PULSE 61; TEMP 98.7
[2018-08-19 04:34] VITALS: BP 149/65; PULSE 59; TEMP 97.4
--- NOTE | 2018-08-19 05:09 | NUR ---
Patient has been resting in bed with eyes closed. Wearing BIPAP at this time. Has denied having pain and discomfort when asked. Has voiced no questions, needs, or concerns at this time. Resting in bed with eyes closed at this time. Call light is within reach.
[2018-08-19 07:55] VITALS: BP 151/79; PULSE 59; TEMP 98.2
[2018-08-19 08:25] LABS: BASO % 0.1 % (0.0-2.0); GRAN # 10.4 (1.4-6.5); GRAN % 81.9 % (42.2-75.2); LYMPH # 1.2 (1.2-3.4); MEAN CELL VOLUME 68 fl (80.0-100.0); MEAN CORPUSCULAR HGB CONC 29 g/dl (33.0-37.0); MONO # 1.1 (0.1-0.6); MONO % 8.5 % (1.7-9.3); PLATELET COUNT 282 K/mm3 (130-400); RED BLOOD COUNT 4.53 M/mm3 (4.10-5.30); REDCELL DISTRIBUTION WIDTH-CV 22.3 % (11.5-14.5)
[2018-08-19 08:31] LABS: HEMATOCRIT 30.7 % (37.0-47.0); HEMOGLOBIN 8.9 g/dl (12.5-16.0); MEAN CORPUSCULAR HEMOGLOBIN 20 pg (27.0-31.0)
[2018-08-19 08:36] LABS: CALCIUM 9.3 mg/dL (8.4-10.2); CREATININE, serum 1.49 (0.52-1.25); MAGNESIUM 2.7 mg/dL (1.6-2.3); POTASSIUM 4.5 mmol/L (3.4-5.0)
[2018-08-19 12:11] VITALS: BP 145/63; PULSE 62; TEMP 98.6
--- NOTE | 2018-08-19 13:16 | NUR ---
foundry worker faxed medical updates including facesheet, nursing notes, progress, notes, and medication to Saloni at [facility] at [phone]. Saloni reported patient was at [facility] at [facility] and at this time can return back to [facility] unless otherwise reported after looking at medical information.
--- NOTE | 2018-08-19 15:00 | NUR ---
PT DIDNT TAKE MORNING MEDS WHEN THEY WHERE ADMISNTERED THIS AM. PT STATED SHE WOULD TAKE THEM WITH FOOD. PT ATE BREAKFAST AND THEN DIDNT TAKE MEDS THEN THIS NURSE CHECKED BACK AFTER BREAKFAST, PT STATED SHE WOULDNT TAKE THEM UNTIL SHE HAD FOOD. THIS NURSE CHECKED BACK WITH PT AT LUNCH TIME, PT TOOK THEM WITH HER LUNCH.
[2018-08-19 15:36] VITALS: BP 136/80; PULSE 64; TEMP 98.4
--- NOTE | 2018-08-19 16:00 | NUR ---
RT CALLED TO PT ROOM BECAUSE PT HAD BEEN COUGHING AND WAS AGITATED C/O BEING UNABLE TO BREATHE. PT HAD HAD RT TX ABOUT AN HOUR PRIOR AND WAS COUGHING UP THIN WHITE SECRETIONS AT THAT TIME. PT WAS ENCOURAGED TO TAKE MEDS FOR ANXIETY AND COUGH BUT INITIALLY REFUSED UNTIL ALLOWED TO MIX MEDS INTO HER YOGURT AND TEA. PT HAD CALMED DOWN AND WAS BEGINNING TO EAT BY THE TIME RT LEFT ROOM. O2 ON @ 2 LPM NC, SPO2 IN UPPER 90S.
--- NOTE | 2018-08-19 16:00 | NUR ---
PT HAD INCREASE IN COUGH THIS AFTERNOON AFTER BREATHING TX. THIS NURSE CALLED AND RECIEVED ORDER FOR AD CAGLE. PT WAS VERY ANXIOUS AND "COULDNT BREATH" PT APPERAED TO HAVE HAVING PANIC ATTACK FROM COUGHING. THIS NURSE ADMINISTERED PRN SEROQUIL AND TESSLON MEDS FOR PT COUGHING AND ANXIOUSNESS. PT STATED SHE WOULDNT TAKE DUE NOT HAVING FOOD, PT HAD LUNCH SITTING IN FRONT OF HER. PT REMAINED ANXIOUS, THIS NURSE CALLED RT TO ASSIST DUE TO PT REQUESTING INHAILER OR BIPAP. RT TOLD PT THAT WOULDNT HELP, AND ASSISTED THIS NURSE TO ATTEMPT TO GET PT TO TAKE MEDS. THAT THE MEDS WOULD HELP THE MOST. PT WAS ABLE TO GET CONVIENCED INTO TAKING MEDS ALTHOUGH PT HAD TO TAKE THEM MIXED IN HER YOUGURT THAT SHE POURED HER TEA INTO AND THEN DRANK THE MIXTURE, STATED THAT THATS HOW SHE NEEDS TO TAKE THEM THAT SHE KNOWS HER BODY AND THAT WORKS THE BEST.
--- NOTE | 2018-08-19 16:30 | NUR ---
PT WAS ABLE THEN TO FINISH HER LUNCH BUT IT HAD SAT MOST OF THE AFTERNOON, AND HAD GOTTEN COLD THIS NURSE REORDERED HER A NEW TRAY.
--- NOTE | 2018-08-19 17:00 | NUR ---
THIS NURSE WENT TO ADMINSTER PT HER IV LASIX THAT WAS ORDERED. PT REQUESTED TO WAIT TIL SHE HAD ATE HER FOOD. THIS NURSE WILL REATTEMPT AT LATER TIME.
--- NOTE | 2018-08-19 19:00 | NUR ---
PT FINISHING MEAL AT THIS TIME, ADMINISTERED IV LASIX WITHOUT ISSUE. PT STILL HAVING NOTED COUGHING, O2 TUDING OFF OF PT, THIS NURSE REAPPLIED O2.
[2018-08-19 21:10] VITALS: BP 150/85; PULSE 63; TEMP 99.3
--- NOTE | 2018-08-19 21:35 | NUR ---
Sitting up in recliner- stating she cant breathe- audible wheezing tracheal heard, hyperventilating- confused, very anxious-- just had a resp treatment- VSS, sats 100% on 2L/nc,, tried to help calm her down but confusion made it difficult-- would not take her night meds which included a seroquel- took the pill and dropped it in her full water cup- states " thats how she takes her meds"??,, got pill out of water and tried to give in applesauce- refused
--- NOTE | 2018-08-19 22:25 | NUR ---
April MOORE called regarding pts anxiety - orders for Ativan and ABG,s-
--- NOTE | 2018-08-19 23:00 | NUR ---
Ativan IV 1 mg was very effective- resting in recliner, no SOB, did take her night meds in pudding at this time- remains confused but cooperative
[2018-08-19 23:05] LABS: ARTERIAL BLOOD GAS BASE EXCESS 2.3 (-2-2); ARTERIAL BLOOD GAS HCO3 27.7 meq/L (22-26); ARTERIAL BLOOD GAS PCO2 46.6 mmHg (35-45); ARTERIAL BLOOD GAS PO2 120.5 mmHg (80-100); ARTERIAL BLOOD GAS pH 7.39 (7.35-7.45)
[2018-08-20] VITALS (9 sets, daily range): BP systolic 155–190; BP diastolic 77–101; PULSE 59–67; TEMP 97.5–98.5
--- NOTE | 2018-08-20 01:30 | NUR ---
Back to bed from recliner- incontinent of large amount of urine- very calm- resting queitly- respiratory therapy will be here to put on C/PAP
--- NOTE | 2018-08-20 04:50 | NUR ---
Agitated - anxious, forcing herslf to constanly cough- trying to spit up-- states she cant breathe- sats 96-99% on 2 L/nc. Will give the prn Ativan at this time. Incontinent of large amount of urine-cleaned up
[2018-08-20 07:16] LABS: GRAN # 6.8 (1.4-6.5); GRAN % 81.5 % (42.2-75.2); HEMATOCRIT 30.8 % (37.0-47.0); HEMOGLOBIN 9.1 g/dl (12.5-16.0); LYMPH # 0.9 (1.2-3.4); LYMPH % 10.5 % (20.0-51.0); MEAN CELL VOLUME 67 fl (80.0-100.0); MEAN CORPUSCULAR HEMOGLOBIN 20 pg (27.0-31.0); MEAN CORPUSCULAR HGB CONC 30 g/dl (33.0-37.0); MONO # 0.6 (0.1-0.6); MONO % 7.6 % (1.7-9.3); PLATELET COUNT 288 K/mm3 (130-400); REDCELL DISTRIBUTION WIDTH-CV 21.7 % (11.5-14.5)
[2018-08-20 07:26] LABS: ALBUMIN 3.5 gm/dL (3.5-5.0); BILIRUBIN,TOTAL 0.4 mg/dL (0.0-1.0); CALCIUM 9.1 mg/dL (8.4-10.2); CREATININE, serum 1.36 (0.52-1.25); MAGNESIUM 2.3 mg/dL (1.6-2.3); POTASSIUM 4.8 mmol/L (3.4-5.0); TOTAL PROTEIN 7.3 gm/dL (6.4-8.2)
--- NOTE | 2018-08-20 08:00 | NUR ---
PT LYING IN BED, EYES CLOSED BREATHING EVEN AND UNLABORED. PT WAS UP MOST THE NIGHT AND HAD ,MULTIPLE PANIC ATTACKS. WILL CONTINUE TO MONITOR.
--- NOTE | 2018-08-20 10:30 | NUR ---
Pt lying in bed, partiall oriented. COmpleted morning assessment. Pt was able to swallow her pills whole. Breathing even and unlabored, breath sounds clear. Breakfast tray at bedside. Family in room. WIll contiue to monitor.
--- NOTE | 2018-08-20 10:50 | NUR ---
Pt up to bathroom, had a large brown bowel movement. Bed change provided. New gown placed on pt. Pt starting to breath heavy and cough. Pt told to breath deeply through nose and out the mouth. Pt unable to follow instructions. Respiratory in room. Will administer prn Ativan for anxiety. Call light in reach
[2018-08-20] MEDS ORDERED: NOVOLOG 100U100 U/M1 SQ (12:38)
[2018-08-20] MEDS ORDERED: PREDNISONE10 MG PO (12:41)
[2018-08-20] MEDS ORDERED: LASIX 40MG TABL40 MG PO (12:50)
[2018-08-20] MEDS ORDERED: XANAX .25M0.25 MG/TA PO (12:52)
--- NOTE | 2018-08-20 13:18 | NUR ---
SW informed that patient can discharge back to [facility] for fdc, PT and OT today (08/20). SW met with patient about this and patient is agreeable to returning to [facility]. Patient signed choice form. SW reported that she can contact patient's daughter about discharge. Patient reported she would like to call her daughter herself. SW will contact [facility] about discharge, fax discharge orders and arrange transportation.
--- NOTE | 2018-08-20 16:31 | NUR ---
ANTWON spoke with Mary rosenberg [facility]. She reports that patient will need to be stable on PO medications before they will accept patient. ANTWON reported this to the hospitalist.
--- NOTE | 2018-08-20 17:45 | NUR ---
Pt in chair, getting very agitated. Cleaned up pt and got pt into bed. Put on the external catheter. PT continued to get very agitated. Refused to swallow pills. Called for orders for ativan. Will continue to monitor.
--- NOTE | 2018-08-20 18:00 | NUR ---
Pt given two doses of ativan IM. April HA in room. Pt still refusing to swallow medications. Pt yelling at us and not being cooperative. Pt refused her seroquel. WIll contiue to monitor.
--- NOTE | 2018-08-20 19:20 | NUR ---
Gave report to Keeley STANLEY. Pt still very agitated and still refusing any PO medications. Keeley will update April
--- NOTE | 2018-08-20 22:30 | NUR ---
CALLED OSIEL SHER IN REFERENCE TO PT'S BS BEING 442. ALSO ADVISED GIVING 12 UNITS OF NOVOLOG INSULIN SQ. OSIEL SHER GAVE ORDERS TO RECHECK BS IN 3 HOURS AND GIVE HER A CALL BACK.
[2018-08-21] VITALS: BP 154/91; PULSE 60; TEMP 97.4
--- NOTE | 2018-08-21 01:30 | NUR ---
CALLED OSIEL SHER WITH BS FOR PT, BS 343. OSIEL SHER ADVISED GIVE 8 UNITS OF NOVOLOG SQ, RECHECK BS IN 3 HOURS, AND CALL HER BACK WITH NEW BS.
--- NOTE | 2018-08-21 03:04 | NUR ---
EARLIER IN SHIFT PT HAD DAUGHTER VISITING AND PT WAS COUGHING CONTINUOUSLY. PT WAS GIVEN A BREATHING TREATMENT PRIOR TO ME ENTERING INTO THE ROOM. PT WAS REFUSING MEDICATIONS AND WAS ANXIOUS. GAVE PRN IM ATIVAN IN RIGHT [place]. PT RELAXED AND HAD TAKEN HER MEDICATIONS. DAUGHTER LEFT AND PT WAS SLEEPING/RESTING, BIPAP WAS ON. PT'S BS WAS 442 AND SHE WAS GIVEN INSULIN. AROUND 0000 PT STARTED COUGHING AND SPITTING WITH BIPAP MASK ON. REMOVED MASK RIGHT AWAKE AND CALLED RT TO GIVE PT A BREATHING TREATMENT. AFTER TAKING BREATHING TREATMENT PT REFUSED TO PUT BIPAP BACK ON. PT HAS BEEN RESTING SLEEPING SINCE THEN. RECHECKED BS AND IT WAS 343, RECEIVED ORDERS TO GIVE 8 UNITS OF NOVOLOG AND RECHECK BS IN 3 HOURS FROM LAST CHECK. CALL LIGHT WITHIN REACH.
[2018-08-21 05:02] VITALS: BP 162/93; PULSE 60; TEMP 97.4
[2018-08-21 07:12] VITALS: BP 161/97; PULSE 59; TEMP 97.3
[2018-08-21 07:39] LABS: CALCIUM 9.2 mg/dL (8.4-10.2); CREATININE, serum 1.22 (0.52-1.25); POTASSIUM 5.1 mmol/L (3.4-5.0)
--- NOTE | 2018-08-21 10:12 | NUR ---
Pt is awake and A/O. She is sitting up in recliner. She denies pain and discomfort. Saline lock to right upper arm is free of complications. External catherer draining clear, yellow urine. Pt took all PO medications without difficulty. She does have a intermittent productive cough, white and thick. Pt denies any other needs.
--- NOTE | 2018-08-21 10:29 | NUR ---
SW informed by doctor that patient will not discharge today. SW informed claudiawmita and also faxed updates.
[2018-08-21 12:03] VITALS: BP 150/78; PULSE 62; TEMP 98.4
--- NOTE | 2018-08-21 12:43 | NUR ---
External catheter replaced at this time. Hygene provided and pt repositioned back in bed.
[2018-08-21 15:15] VITALS: BP 137/71; PULSE 60; TEMP 98
--- NOTE | 2018-08-21 15:39 | NUR ---
External catheter changed at this time, linens changed and hygene provided.
--- NOTE | 2018-08-21 22:00 | NUR ---
Patient assessed at this time. Alert and oriented with confusion. Drowy, but awakens easily to verbal stimuli. Peripheral IV to right AC flushed. Site is without redness, warmth, swelling, and pain. LS CTA in upper lobes, diminished in lower lobes. Denies having SOB and dyspnea. On oxygen at 0.5 L/min via NC. Respirations even and unlabored. Occasional moist cough, but unable to produce any sputum. Remains on droplet isolation for positive RVP. HRR. BSAx4. Abdomen soft and non-tender. External catheter with clear yellow urine. Leaking present. Perineal hygiene care provided by staff. 1+ edema BLE. Bilateral feet are dry. Voices no questions, needs, or concerns at this time. Resting in bed with call light within reach.
[2018-08-22 01:33] VITALS: BP 146/77; PULSE 85; TEMP 98.6
[2018-08-22 05:08] VITALS: BP 128/69; PULSE 86; TEMP 98.3
--- NOTE | 2018-08-22 06:24 | NUR ---
Patient has been resting in bed with eyes closed most of the night. Wears oxygen at 0.5 L/min via NC. Denies having SOB and dyspnea. External catheter was changed around midnight. Patient does have brief on and continues to be incontinent of bladder. Voices no questions, needs, or concerns at this time. Resting in bed with call light within reach.
[2018-08-22 06:52] LABS: BASO % 0.1 % (0.0-2.0); EOS % 0.2 % (0-4.0); GRAN # 8.1 (1.4-6.5); LYMPH # 1.5 (1.2-3.4); LYMPH % 14.6 % (20.0-51.0); MEAN CELL VOLUME 66 fl (80.0-100.0); MEAN CORPUSCULAR HGB CONC 29 g/dl (33.0-37.0); MONO # 0.9 (0.1-0.6); MONO % 8.7 % (1.7-9.3); PLATELET COUNT 218 K/mm3 (130-400); RED BLOOD COUNT 4.92 M/mm3 (4.10-5.30); REDCELL DISTRIBUTION WIDTH-CV 21.5 % (11.5-14.5)
[2018-08-22 06:54] LABS: HEMATOCRIT 32.3 % (37.0-47.0); HEMOGLOBIN 9.5 g/dl (12.5-16.0); MEAN CORPUSCULAR HEMOGLOBIN 19 pg (27.0-31.0)
[2018-08-22 07:01] LABS: CALCIUM 9.3 mg/dL (8.4-10.2); CREATININE, serum 1.37 (0.52-1.25); POTASSIUM 4.9 mmol/L (3.4-5.0)
--- NOTE | 2018-08-22 07:10 | NUR ---
Received report. Patient is resting in bed, eyes are closed, opens to voice. Patient will adjust self in bed and makes a yelling noise when doing so. When asked if she had pain she states no. Is able to verbalize things appropriately when asked questions. Is not A&O x4. Is able to reach for tissues and cough into them independently and is able to reach for cups for water. Verbalizes that she is not having any pain when asked. Call light and other items are within reach.
--- NOTE | 2018-08-22 07:19 | NUR ---
Report given to day shift nurse.
[2018-08-22 08:25] VITALS: BP 144/83; PULSE 56; TEMP 97
[2018-08-22] MEDS ORDERED: XANAX .25M0.25 MG/TA PO (08:54)
[2018-08-22] MEDS ORDERED: SEROQUEL 2525 MG/TAB PO (08:54)
--- NOTE | 2018-08-22 10:21 | NUR ---
ANTWON attended clinical rounds. Patient will discharge back to [facility] for long-term, PT and OT today (08/22). ANTWON faxed discharge orders. ANTWON presented IM to patient. She signed but did not request a copy. ANTWON also contacted patient's daughter, Evette, about discharge at 11:30am.
--- NOTE | 2018-08-22 12:32 | NUR ---
Patient discharged to [facility]. Was picked up by the facility transportation at 1150. INT discontinued, catheter intact, hemostasis acheived. Assisted with dressing and pericare. All personal items have been sent with patient. Attempted to call report to nurse, had to leave a message.
[2018-08-23] MEDS ORDERED: TYLENOL 500MG500 MG PO (21:07)
[2018-08-24] MEDS ORDERED: TYLENOL SU650 MG/SUP RC (01:30)
[2018-08-24] MEDS ORDERED: XANAX .25M0.25 MG/TA PO (01:31)
[2018-08-24] MEDS ORDERED: APRESOLINE50 MG PO (01:33)
[2018-08-24] MEDS ORDERED: IPRATROPIUM BROM3 M1 IH (01:36)
[2018-08-24] MEDS ORDERED: MAGNESIUM250 M1 PO (01:36)
[2018-08-24] MEDS ORDERED: MELAT3MGTAB PO (01:37)
[2018-08-24] MEDS ORDERED: ALDOMET 250MG250 MG PO ×2 (01:39→01:40)
[2018-08-24] MEDS ORDERED: DITROPAN XL 5MG5 M1 PO (01:41)
[2018-08-24] MEDS ORDERED: K-DUR20 MEQ PO (01:42)
[2018-08-24] MEDS ORDERED: GOOD NEIGH1200 MG/15 PO (01:44)
[2018-08-24] MEDS ORDERED: MAG-AL LIQUID 230 ML PO (01:45)
[2018-08-24] MEDS ORDERED: SEROQUEL 2525 MG/TAB PO (01:46)
[2018-08-24] MEDS ORDERED: JANUVIA 100MG100 MG PO (01:47)
[2018-08-24] MEDS ORDERED: ALDACTONE 25MG25 M1 PO (01:48)
[2018-08-24] MEDS ORDERED: TYLENOL 325MG325 MG PO (01:49)
[2018-08-24] MEDS ORDERED: 00186-0372-20 IH (01:52)
== END 2018-08-22 11:50 | DRG 92 ==
LOC: COL.ER 00:43 → MEDICAL 03:31
PROVIDERS: Emergency Medicine; Nurse Practitioner; Nurse Practitioner Family; Physician Assistant; ADMIT Family Medicine
DX: G92 Toxic encephalopathy (principal); I50.32 Chronic diastolic (congestive) heart failure; I13.0 Hypertensive heart and chronic kidney disease with heart failure and stage 1 through stage 4 chronic kidney disease, or unspecified chronic kidney disease; H20.9 Unspecified iridocyclitis; N17.9 Acute kidney failure, unspecified; T50.905A Adverse effect of unspecified drugs, medicaments and biological substances, initial encounter; Y92.129 Unspecified place in nursing home as the place of occurrence of the external cause; J44.9 Chronic obstructive pulmonary disease, unspecified; F32.9 Major depressive disorder, single episode, unspecified; D50.9 Iron deficiency anemia, unspecified; E11.22 Type 2 diabetes mellitus with diabetic chronic kidney disease; F41.9 Anxiety disorder, unspecified; K21.9 Gastro-esophageal reflux disease without esophagitis; G47.33 Obstructive sleep apnea (adult) (pediatric); N32.81 Overactive bladder; M81.0 Age-related osteoporosis without current pathological fracture; E78.5 Hyperlipidemia, unspecified; N18.3 Chronic kidney disease, stage 3 (moderate); E55.9 Vitamin D deficiency, unspecified; Z95.0 Presence of cardiac pacemaker; Z88.9 Allergy status to unspecified drugs, medicaments and biological substances; Z88.8 Allergy status to other drugs, medicaments and biological substances; Z90.710 Acquired absence of both cervix and uterus
CPT/HCPCS: OP; 99222-AI; 99231-AI; 99232-AI; 99233-AI; 99239; G0378; J1644; J1815; J1940; J2060; J2930; J7512

== ENCOUNTER → 2018-09-05 | Outpatient (REF) ==
[~2018-09-05] MED LIST changes: +BUSPAR5 MG PO; +CELEXA 20MG20 MG/TAB PO; +DITROPAN XL 5MG5 M1 PO; +DULCOLAX S10 MG/SUPP RC; +GOOD NEIGH1200 MG/15 PO; +IMODIUM 2MG CAPS2 MG PO; +JANUVIA50 MG PO; +K-DUR20 MEQ PO; +LASIX 40MG TABL40 MG PO; +LASIX 80MG TABL80 MG PO; +LEVEMIR100 U/ML SQ; +MAG-AL LIQUID 230 ML PO; +MAGNESIUM250 M1 PO; +MELAT3MGTAB PO; +MILK OF MA400 MG/52 PO; +PREDNISONE10 MG PO; +SEROQUEL 2525 MG/TAB PO; +TYLENOL 500MG500 MG PO; +TYLENOL SU650 MG/SUP RC; +XANAX .25M0.25 MG/TA PO; +ZOLOFT 50MG50 MG PO
[2018-09-05 10:59] LABS: COLLECTION METHOD CATHETER
[2018-09-05 11:12] LABS: PH 8 (5-8); SQUAMOUS EPITHELIAL 0-2 /hpf; URINE APPEARANCE Cloudy; URINE BACTERIA Rare /hpf; URINE BILIRUBIN Negative (NEGATIVE); URINE BLOOD Negative (NEGATIVE); URINE COLOR Yellow; URINE GLUCOSE Negative (NEGATIVE); URINE KETONE Negative (NEGATIVE); URINE LEUKOCYTE ESTERASE 3+ (NEGATIVE); URINE NITRATE Positive (NEGATIVE); URINE PROTEIN(semi-quant) Negative (NEGATIVE); URINE UROBILINOGEN Negative (NEGATIVE); URINE WBC >50 /hpf
== END ==
LOC: ZCOL.LAB 10:57
PROVIDERS: Family Medicine
DX: N39.0 Urinary tract infection, site not specified (principal)

== ENCOUNTER → 2018-09-05 | Outpatient (CLI) | payer MEDICARE ==
[2018-09-05 07:48] LABS: COLLECTION METHOD CLEAN CATCH
[2018-09-05 08:31] LABS: MUCOUS Present /lpf; SQUAMOUS EPITHELIAL 0-2 /hpf; URINE BACTERIA Moderate /hpf; URINE WBC >50 /hpf
[2018-09-05 08:32] LABS: PH 8 (5-8); URINE APPEARANCE Cloudy; URINE BILIRUBIN Negative (NEGATIVE); URINE BLOOD Negative (NEGATIVE); URINE COLOR Yellow; URINE GLUCOSE Negative (NEGATIVE); URINE KETONE Negative (NEGATIVE); URINE LEUKOCYTE ESTERASE 3+ (NEGATIVE); URINE NITRATE Positive (NEGATIVE); URINE PROTEIN(semi-quant) Negative (NEGATIVE); URINE UROBILINOGEN Negative (NEGATIVE)
== END ==
LOC: ZCOL.LAB 07:28
PROVIDERS: Family Medicine
DX: N39.0 Urinary tract infection, site not specified (principal)

== ENCOUNTER → 2018-09-10 | Outpatient (CLI) | payer MEDICARE ==
[~2018-09-10] MED LIST changes: +ZOLOFT 100MG100 MG PO
[2018-09-10 12:03] LABS: CALCIUM 8.9 mg/dL (8.4-10.2); CREATININE, serum 1.88 (0.52-1.25); POTASSIUM 4.8 mmol/L (3.4-5.0)
== END ==
LOC: ZCOL.LAB 10:25
PROVIDERS: Family Medicine
DX: I13.0 Hypertensive heart and chronic kidney disease with heart failure and stage 1 through stage 4 chronic kidney disease, or unspecified chronic kidney disease (principal); I50.30 Unspecified diastolic (congestive) heart failure; N18.3 Chronic kidney disease, stage 3 (moderate)

== ENCOUNTER 2018-10-08 22:14 | Inpatient (IN) | payer MEDICARE ==
[~2018-10-08] VITALS: Ht 162.6 cm; Wt 140.0 kg
[2018-10-08 23:39] LABS: BASO % 0.3 % (0.0-2.0); EOS # 0.1 (0.0-0.7); EOS % 0.8 % (0-4.0); GRAN % 76.7 % (42.2-75.2); LYMPH # 1.3 (1.2-3.4); LYMPH % 14.2 % (20.0-51.0); MEAN CELL VOLUME 68 fl (80.0-100.0); MEAN CORPUSCULAR HGB CONC 29 g/dl (33.0-37.0); MEAN PLATELET VOLUME 9.6 fl (7.4-10.4); MONO # 0.7 (0.1-0.6); MONO % 7.7 % (1.7-9.3); PLATELET COUNT 341 K/mm3 (130-400); RED BLOOD COUNT 4.96 M/mm3 (4.10-5.30); REDCELL DISTRIBUTION WIDTH-CV 23.4 % (11.5-14.5)
[2018-10-08 23:40] LABS: HEMATOCRIT 33.5 % (37.0-47.0); HEMOGLOBIN 9.8 g/dl (12.5-16.0); MEAN CORPUSCULAR HEMOGLOBIN 20 pg (27.0-31.0)
[2018-10-08 23:49] LABS: ALBUMIN 3.6 gm/dL (3.5-5.0); BILIRUBIN,TOTAL 0.7 mg/dL (0.0-1.0); C-REACTIVE PROTEIN 7.3 mg/dL (0.0-0.9); CALCIUM 9.6 mg/dL (8.4-10.2); CREATININE, serum 1.56 (0.52-1.25); MAGNESIUM 1.7 mg/dL (1.6-2.3); PHOSPHOROUS 3.8 mg/dL (2.5-4.5); POTASSIUM 3.9 mmol/L (3.4-5.0); TOTAL PROTEIN 7.7 gm/dL (6.4-8.2)
[2018-10-08 23:57] LABS: COLLECTION METHOD CATHETER
[2018-10-09 00:22] LABS: MUCOUS Present /lpf; PH 5 (5-8); URINE APPEARANCE Hazy; URINE BACTERIA Occasional /hpf; URINE BILIRUBIN Negative (NEGATIVE); URINE BLOOD 1+ (NEGATIVE); URINE COLOR Yellow; URINE GLUCOSE Negative (NEGATIVE); URINE KETONE Negative (NEGATIVE); URINE LEUKOCYTE ESTERASE 2+ (NEGATIVE); URINE NITRATE Negative (NEGATIVE); URINE PROTEIN(semi-quant) Negative (NEGATIVE); URINE RBC 0-2 /hpf; URINE UROBILINOGEN Negative (NEGATIVE)
[2018-10-09 09:03] VITALS: BP 160/90; PULSE 81; TEMP 98
--- NOTE | 2018-10-09 09:14 | NUR ---
CALL TO DR. TRINIDAD FOR SURGICAL CONSULT ([phone]). REPLY,"OK, I'LL GET A LOOK AT HER".
--- NOTE | 2018-10-09 09:20 | NUR ---
Patient up to room 350, alert and oriented x 3. Patient oriented to room. 5 page complete. States nausea at this time. Medications given per orders. INT to RAC. Tele on. O2 at 2L via NC. Edema noted to BLE. Denies further needs at this time.
[2018-10-09] MEDS ORDERED: NORVASC 5MG5 MG/TAB PO (11:22)
[2018-10-09] MEDS ORDERED: ISOSORBIDE MON120 MG PO (11:23)
[2018-10-09] MEDS ORDERED: LANTUS SOLOS100 U/ML SQ (11:24)
[2018-10-09] MEDS ORDERED: NOVOLOG 100U100 U/M1 (11:25)
[2018-10-09] MEDS ORDERED: PROAIR HFA0.09 MG/AC IH (11:25)
[2018-10-09] MEDS ORDERED: PROZAC 20MG20 MG PO (11:27)
[2018-10-09] MEDS ORDERED: 00186-0372-20 IH (11:27)
[2018-10-09] MEDS ORDERED: ZYPREXA 5MG5 MG PO (11:28)
[2018-10-09] MEDS ORDERED: ATROVENT I0.2 MG/1 M IH (11:29)
[2018-10-09] MEDS ORDERED: DITROPAN XL 5MG5 M1 PO (11:29)
--- NOTE | 2018-10-09 11:48 | NUR ---
First visit from the sap basis administrator. No needs right now.
[2018-10-09 11:54] VITALS: BP 165/101; PULSE 83; TEMP 98.5
[2018-10-09 15:50] VITALS: BP 183/83; PULSE 74; TEMP 97.9
--- NOTE | 2018-10-09 16:09 | NUR ---
ANTWON met with the patient to discuss a discharge plan. The patient lives in [place] with immediate and extended family members. The patient uses a walker, CPAP machine, oxygen, and has a cane. The patient receives her medical supplies from [facility]. The patient's PCP is Dr. Rambo Gunn and the patient receives her medications from [facility] pharmacy. The patient may require the use of a medication voucher upon discharge. The patient has advanced directives in the EMR and designate Evette Narayanan. ANTWON will continue to follow to assist with any discharge recommendations
--- NOTE | 2018-10-09 16:09 | NUR ---
solid waste collection worker contacted [facility] and confirmed that patient was discharged on 10/01/18 and jail care diverted on the insistence from her family that patient return home and the family provide care in the home.
--- NOTE | 2018-10-09 19:08 | NUR ---
Patient has done well throughout the day. Has requested pain medications throughout the day for abdominal pain, given per orders. Up to bedside comode with x2 assist, steady gait. Denies further needs at this time. Reported off to narrow fabrics weaver.
[2018-10-09 20:36] VITALS: BP 129/70; PULSE 66; TEMP 97.8
[2018-10-09 23:17] VITALS: BP 124/67; PULSE 62; TEMP 97.4
[2018-10-10 04:26] VITALS: BP 107/59; PULSE 59; TEMP 97.7
[2018-10-10 07:04] LABS: CALCIUM 8.7 mg/dL (8.4-10.2); CREATININE, serum 1.75 (0.52-1.25); MAGNESIUM 1.6 mg/dL (1.6-2.3); POTASSIUM 3.6 mmol/L (3.4-5.0)
[2018-10-10 07:14] LABS: BASO % 0.5 % (0.0-2.0); EOS # 0.2 (0.0-0.7); EOS % 2.7 % (0-4.0); GRAN # 3.9 (1.4-6.5); LYMPH # 1.3 (1.2-3.4); LYMPH % 20.1 % (20.0-51.0); MEAN CELL VOLUME 68 fl (80.0-100.0); MEAN CORPUSCULAR HGB CONC 29 g/dl (33.0-37.0); MEAN PLATELET VOLUME 10.3 fl (7.4-10.4); MONO # 0.8 (0.1-0.6); MONO % 13.5 % (1.7-9.3); PLATELET COUNT 314 K/mm3 (130-400); RED BLOOD COUNT 4.14 M/mm3 (4.10-5.30); REDCELL DISTRIBUTION WIDTH-CV 22.8 % (11.5-14.5)
[2018-10-10 07:18] LABS: HEMATOCRIT 28.2 % (37.0-47.0); HEMOGLOBIN 8.1 g/dl (12.5-16.0); MEAN CORPUSCULAR HEMOGLOBIN 20 pg (27.0-31.0)
[2018-10-10 07:42] VITALS: BP 114/54; PULSE 61; TEMP 97.6
--- NOTE | 2018-10-10 10:42 | NUR ---
Pt assessment complete and charted. Pt A&O, denies pain, dizzines, chest pain. Per patient she had some N/V yesterday 10/09. Per rnight shift, no episodes of n/v overnight. No episodes as of now this morning. Pt on 2L NC. Morning medications administered per APR. No other concerns at this time.
[2018-10-10 11:41] VITALS: BP 117/62; PULSE 61; PULSE 81; TEMP 98.1
[2018-10-10 15:37] VITALS: BP 103/54; PULSE 60; TEMP 98.3
--- NOTE | 2018-10-10 17:44 | NUR ---
Pt has had uneventful day, up with therapy. Per therapy, pt was SBA. Pt diet advanced to ADA and has tolerated PO meds and food throughout day. Pt denies pain or concerns today. Pt up to bathroom with elizabeth Jimenez/ ESVIN. No episodes of incontinence this shift.
--- NOTE | 2018-10-10 19:10 | NUR ---
Report received from JADEN Barney
--- NOTE | 2018-10-10 19:27 | NUR ---
Resting in recliner. Assessment complete. Bases bilaterally diminshed. Heart sounds normal. Bowels active x4. Pulses present throughout. Bilateral lower leg edema +2. INT right forearm flushed without complications. Denies pain. Patient alert and orientated at this time. Call light in reach.
[2018-10-10 19:58] VITALS: BP 116/58; PULSE 67; TEMP 98.2
--- NOTE | 2018-10-10 20:02 | NUR ---
Patient assisted to bed. Standby assist. Call light in reach.
[2018-10-11] VITALS: BP 96/46; PULSE 65; TEMP 98.2
--- NOTE | 2018-10-11 00:03 | NUR ---
Resting in bed. Denies needs. call light in reach.
[2018-10-11 01:02] VITALS: BP 108/55
[2018-10-11 04:00] VITALS: BP 107/63; PULSE 63; TEMP 98.4
--- NOTE | 2018-10-11 04:10 | NUR ---
Resting in bed. Denies needs. Call light in reach.
--- NOTE | 2018-10-11 05:46 | NUR ---
Patient incontinent x1 episode. Had uneventful night. Resting in bed, asleep this AM. Call light in reach.
[2018-10-11 05:58] VITALS: BP 122/70
--- NOTE | 2018-10-11 07:05 | NUR ---
Report given to JADEN Napier
[2018-10-11 07:10] VITALS: BP 122/57; PULSE 63; TEMP 98.3
[2018-10-11] MEDS ORDERED: CATAPRES 0.1MG0.1 MG PO (09:05)
[2018-10-11] MEDS ORDERED: LANTUS SOLOS100 U/ML SQ (09:09)
[2018-10-11 10:59] VITALS: BP 134/66; PULSE 62; TEMP 98.8
--- NOTE | 2018-10-11 12:12 | NUR ---
ANTWON attended clincal rounds. Patient will discharge today. ANTWON contacted patient's daughter/DPOA, Evette [phone], about discharge plan. Evette wants patient to return home. She reports patient has not been home in 2 months and needs to be home. Evette reports that someone will always be with patient and she will not be alone. Patient has previously used [facility]. Both Evette and patient would like to use [facility] again. ANTWON contacted [facility]. They report due to patient being non compliant, not easy to get in contact with, and her high readmission rate, they are unable to accept patient. ANTWON contacted Evette about this. ANTWON provided Evette with home health options from the medicare.gov resource list. Evette chose [facility]. ANTWON faxed and contacted Melissa with [facility]. Melissa reports they will review the referral and contact patient's insurance.
--- NOTE | 2018-10-11 13:30 | NUR ---
Patient is discharging home with homehealth. Explained to family and patient the changes to her medications. Explained when her follow up appointment is. patient verbalized understanding. Copies of discharge instructions sent with patient. Patient walked out via wheel chair by Carolin RON.
--- NOTE | 2018-10-11 13:38 | NUR ---
ANTWON met with patient and daughter, Evette. ANTWON informed them that [facility] is waiting on arpproval from insurance. ANTWON also reported that in the event insurance denies [facility], [place] will assist with finding a new home health company. ANTWON faxed discharge orders to [facility] for nursing.
== END 2018-10-11 13:35 | disposition home health service (06) | DRG 392 ==
LOC: COL.ER 22:14 → SURG 10-09 03:50 → EDBEDREQ 10-09 06:31 → SURG 10-09 09:00
PROVIDERS: Emergency Medicine; Nurse Practitioner Family; ADMIT Family Medicine
DX: A08.4 Viral intestinal infection, unspecified (principal); I13.0 Hypertensive heart and chronic kidney disease with heart failure and stage 1 through stage 4 chronic kidney disease, or unspecified chronic kidney disease; I50.32 Chronic diastolic (congestive) heart failure; J96.11 Chronic respiratory failure with hypoxia; N18.3 Chronic kidney disease, stage 3 (moderate); E78.5 Hyperlipidemia, unspecified; K21.9 Gastro-esophageal reflux disease without esophagitis; E11.22 Type 2 diabetes mellitus with diabetic chronic kidney disease; F41.1 Generalized anxiety disorder; N32.81 Overactive bladder; G47.33 Obstructive sleep apnea (adult) (pediatric); E87.6 Hypokalemia; J45.909 Unspecified asthma, uncomplicated; D56.9 Thalassemia, unspecified; Z99.81 Dependence on supplemental oxygen; Z90.710 Acquired absence of both cervix and uterus; Z79.4 Long term (current) use of insulin; Z79.02 Long term (current) use of antithrombotics/antiplatelets; Z88.6 Allergy status to analgesic agent; Z88.8 Allergy status to other drugs, medicaments and biological substances; E55.9 Vitamin D deficiency, unspecified; R53.81 Other malaise
CPT/HCPCS: 99222-AI; 99231-AI; 99239; J0360; J1644; J1815; J1956; J2270; J2405; J2550; J3010; J7030; J7050

== ENCOUNTER 2018-10-13 02:52 | Observation (INO) | payer MEDICARE, OTHER ==
[~2018-10-13] VITALS: Ht 162.6 cm; Wt 133.1 kg
[~2018-10-13 02:52] MED LIST changes: +ATROVENT I0.2 MG/1 M IH; +LANTUS SOLOS100 U/ML SQ; +NOVOLOG 100U100 U/M1; +PROZAC 20MG20 MG PO; +ZYPREXA 5MG5 MG PO
[2018-10-13 03:47] LABS: BASO % 0.5 % (0.0-2.0); EOS # 0.2 (0.0-0.7); EOS % 2.2 % (0-4.0); GRAN # 5.5 (1.4-6.5); GRAN % 75.1 % (42.2-75.2); LYMPH # 1.1 (1.2-3.4); LYMPH % 14.9 % (20.0-51.0); MEAN CELL VOLUME 68 fl (80.0-100.0); MEAN CORPUSCULAR HGB CONC 29 g/dl (33.0-37.0); MEAN PLATELET VOLUME 9.6 fl (7.4-10.4); MONO # 0.5 (0.1-0.6); MONO % 6.9 % (1.7-9.3); PLATELET COUNT 345 K/mm3 (130-400); RED BLOOD COUNT 5.18 M/mm3 (4.10-5.30); REDCELL DISTRIBUTION WIDTH-CV 23.1 % (11.5-14.5)
[2018-10-13 03:53] LABS: HEMOGLOBIN 10.3 g/dl (12.5-16.0); MEAN CORPUSCULAR HEMOGLOBIN 20 pg (27.0-31.0)
[2018-10-13 03:59] LABS: ALBUMIN 3.7 gm/dL (3.5-5.0); BILIRUBIN,TOTAL 0.8 mg/dL (0.0-1.0); C-REACTIVE PROTEIN 6.6 mg/dL (0.0-0.9); CALCIUM 9.8 mg/dL (8.4-10.2); CREATININE, serum 1.24 (0.52-1.25); POTASSIUM 3.8 mmol/L (3.4-5.0); TOTAL PROTEIN 8.1 gm/dL (6.4-8.2)
[2018-10-13 04:28] LABS: TROPONIN-I 0.176 ng/mL (0.000-0.035)
[2018-10-13 09:15] VITALS: BP 159/92; PULSE 75; TEMP 98.5
[2018-10-13 12:04] VITALS: BP 159/92; PULSE 77; TEMP 98.8
[2018-10-13 18:21] VITALS: BP 158/95; PULSE 76; TEMP 98.8
--- NOTE | 2018-10-13 18:23 | NUR ---
Patient has done well throughout the day. Patient has stated nausea throughout the day, medications given per orders. Patient states abdominal pain resolved after morphine administration. Alert and oriented x 3. IV fluids infusing via pump per orders to right AC. Patient has been up to comode with 1 assist and walker. Steady gait. Patient tolerating ICE chips at this time without further complaints of nausea. Patient will be transfered to Medical room 316. Will report off to shift nurse manager nurse.
--- NOTE | 2018-10-13 18:43 | NUR ---
Report received from Karla STANLEY on surgical unit. Pt has already been transferred to medical bed.
--- NOTE | 2018-10-13 20:00 | NUR ---
Pt resting in bed with HOB elevated. Pt assisted to BSC with walker and 2 assist. Pt voiding clear, pale yellow urine. Pt was also incontient. Bed changed. Gown changed. Brief changed. Pt denies pain or nausea. Respiratons even and unlabored. Lungs clear. Abdomen soft, nontender. BS+. R AC IV with IVF infusing. 2+ edema to BLE. Pt denies needs at this time. Will continue to monitor.
[2018-10-13 23:43] VITALS: BP 149/75; PULSE 65; TEMP 98.9
[2018-10-14 03:13] VITALS: BP 133/65; PULSE 61; TEMP 98.4
--- NOTE | 2018-10-14 06:00 | NUR ---
Pt sitting up in bed this AM. Awake and alert. Pt ahs slept throughout the night. No complaints of pain or nausea.
[2018-10-14 06:10] LABS: BASO % 0.5 % (0.0-2.0); EOS # 0.2 (0.0-0.7); EOS % 3.7 % (0-4.0); GRAN # 3.7 (1.4-6.5); LYMPH # 1.3 (1.2-3.4); LYMPH % 21.6 % (20.0-51.0); MEAN CELL VOLUME 68 fl (80.0-100.0); MEAN CORPUSCULAR HGB CONC 29 g/dl (33.0-37.0); MEAN PLATELET VOLUME 9.9 fl (7.4-10.4); MONO # 0.9 (0.1-0.6); MONO % 13.9 % (1.7-9.3); PLATELET COUNT 287 K/mm3 (130-400); RED BLOOD COUNT 4.36 M/mm3 (4.10-5.30); REDCELL DISTRIBUTION WIDTH-CV 22.5 % (11.5-14.5)
[2018-10-14 06:17] LABS: HEMATOCRIT 29.5 % (37.0-47.0); HEMOGLOBIN 8.4 g/dl (12.5-16.0); MEAN CORPUSCULAR HEMOGLOBIN 19 pg (27.0-31.0)
[2018-10-14 06:28] LABS: CALCIUM 8.8 mg/dL (8.4-10.2); CREATININE, serum 1.18 (0.52-1.25); POTASSIUM 3.5 mmol/L (3.4-5.0)
[2018-10-14 07:52] VITALS: BP 142/73; PULSE 61; TEMP 98.4
--- NOTE | 2018-10-14 08:25 | NUR ---
Assessment completed, vital signs stable, denies pain, patient is sleeping but arousable, denies pain, denies N/V, overnight nurse reports NO episodes of N/V, patient has not had any more BM, abdomen is soft and non-tender, BS+, NPO and IVF infusing, she denies needs and has fallen back asleep before I left her room
[2018-10-14 10:48] VITALS: BP 145/68; PULSE 67; TEMP 98.2
[2018-10-14 16:23] VITALS: BP 118/59; PULSE 71; TEMP 97.7
[2018-10-14 19:39] VITALS: BP 131/67; PULSE 57; TEMP 98.4
--- NOTE | 2018-10-14 21:36 | NUR ---
Report received from JADEN Massey. Patient resting in bed. Assessment completed at this time. Alert and oriented. Did take her evening meds. Denied having any pain. Radial pulses strong. Requested crackers, but since on clear liquids diet, given jello. 2L O2. Denied any other needs at this time. Call light within reach.
[2018-10-14 23:30] VITALS: BP 135/70; PULSE 65; TEMP 98
[2018-10-15 03:39] VITALS: BP 135/67; PULSE 59; TEMP 97.4
--- NOTE | 2018-10-15 06:11 | NUR ---
Patient had uneventful night. Very pleasant all night. Requested crackers, but informed that she is on a clear liquids diet. Jello was given. Patient is resting in bed. Call light within reach.
[2018-10-15 06:52] LABS: BASO % 0.6 % (0.0-2.0); EOS # 0.2 (0.0-0.7); EOS % 4.5 % (0-4.0); GRAN # 2.9 (1.4-6.5); GRAN % 53.3 % (42.2-75.2); LYMPH # 1.5 (1.2-3.4); LYMPH % 28.5 % (20.0-51.0); MEAN CELL VOLUME 68 fl (80.0-100.0); MEAN CORPUSCULAR HGB CONC 29 g/dl (33.0-37.0); MONO # 0.7 (0.1-0.6); MONO % 12.7 % (1.7-9.3); PLATELET COUNT 279 K/mm3 (130-400); RED BLOOD COUNT 4.27 M/mm3 (4.10-5.30); REDCELL DISTRIBUTION WIDTH-CV 22.5 % (11.5-14.5)
[2018-10-15 06:53] LABS: HEMATOCRIT 29.1 % (37.0-47.0); HEMOGLOBIN 8.4 g/dl (12.5-16.0); MEAN CORPUSCULAR HEMOGLOBIN 20 pg (27.0-31.0)
--- NOTE | 2018-10-15 07:00 | NUR ---
Report received from JADEN Vasquez. PT in bed resting, requesting to be advanced to full liquids. Will check with hospitalist and continue to monitor.
--- NOTE | 2018-10-15 07:02 | NUR ---
Report given to JADEN Ballesteros.
[2018-10-15 07:16] LABS: CALCIUM 8.6 mg/dL (8.4-10.2); CREATININE, serum 1.45 (0.52-1.25); POTASSIUM 3.3 mmol/L (3.4-5.0)
[2018-10-15 08:24] VITALS: BP 152/76; PULSE 71; TEMP 99.1
--- NOTE | 2018-10-15 08:30 | NUR ---
Assessment charted. Pt able to answer all orientation questions corerctly. Tolerated FL diet well for breakfast, denies needs. Up to commode with SBA, urine suzy and clear. Denies needs, will continue to monitor.
[2018-10-15 12:18] VITALS: BP 154/86; PULSE 64; TEMP 98.7
[2018-10-15] MEDS ORDERED: CARAFATE 1GM1 G PO (14:41)
[2018-10-15] MEDS ORDERED: PROTONIX 40MG T40 MG PO (14:42)
--- NOTE | 2018-10-15 14:55 | NUR ---
ANTWON met with the patient to discuss discharge plan and to complete the Re-Admission Interview. The patient recently discharged from [facility], 10/11, and returned back home with her family and home health services for detention through [facility]. ANTWON contacted and confirmed services from Rupa at [facility]. Rupa reports that they visited the patient once for admissions on 10/12. The patient had not yet followed up with her PCP. Her PCP follow up appointment was scheduled for 10/18. ANTWON contacted the patient's PCP's office and they informed ANTWON that she keeps her appointments. The patient reports that she just gets sick a lot. The patient lives in [place] with her daughter (Evette), son (Ammon), and [id number]. She reports needing assistance with bathing and has a cane, walker, CPAP and home oxygen from [facility]. She states that her daughter helps her with bathing, meal prep, laundry, and with whatever she may need. She states that her children also monitor her to make sure she takes her meds. The patient's PCP is Dr. Rambo Gunn and she receives her medications at [facility]. She reports occasional difficulties affording her meds. She states that her income is from disability and that she receives $1,200 a month. The patient's advanced directives are in EMR and her daughter, Evette (ph#[phone]), is her DPOA-HC. The patient had applied for Medicaid during a past hospital stay. ANTWON consulted Financial Counselor, Jacqueline. Jacqueline reports that the Medicaid karina was denied, due to the patient and family not sending in the patient's bank statements and a copy of her life insurance cover sheet. Jacqueline met with the patient and completed a new Medicaid application. Jacqueline educated the patient on how she will need to provide those documents. The patient verbalized understanding and asked for Jacqueline's phone and fax number to send in those documents. ANTWON provided a printed note of the needed documents and Jacqueline's phone and fax number to the patient. ANTWON then discussed going to a higher level of care, due to her frequent re-admissions vs going back home with home health. The patient reports that she would like to return back home and would be agreeable to resuming home health. She states that she will do well, but then start feeling sick again. She states that she has home health's phone number and knows that she can call them with questions. ANTWON then contacted the patient's daughter, Evette. Evette reports that the patient has been doing better and doing things more on her own lately. She states that she is in agreeance of the patient's decision of coming back home with home health. ANTWON also informed Evette of why the patient's Medicaid karina was denied and what documents she will need to help the patient send in. The patient's daughter informed ANTWON that she had turned in those documents to the child welfare social worker at [facility], but never heard anything more about it. Asafbee informed ANTWON that she will help get those documents sent it. The patient is to discharge back home with her family today, 10/15, and resume home health services for detention/PT/OT through [facility]. ANTWON contacted and faxed discharge orders to Rupa at [facility]. ANTWON made an APS report, due to concerns within the home. APS intake ID#[id number].
--- NOTE | 2018-10-15 17:30 | NUR ---
Discharge teaching completed at this time. INT dc'd, tip intact. Reviewed discharge packet, new meds sent to pharmacy, f/u appointments, answered all qeustons. Pt verbalized understanding. Escorted out with all belongings via w/c with medical staff. Daughter to drive home, criteria met.
== END 2018-10-15 17:45 | disposition home or self-care (01) ==
LOC: COL.ER 02:52 → MEDICAL 07:19 → SURG 07:19 → MEDICAL 19:15
PROVIDERS: Emergency Medicine; Physician Assistant; ADMIT Hospitalist
DX: R10.32 Left lower quadrant pain (principal); R19.7 Diarrhea, unspecified; R11.2 Nausea with vomiting, unspecified; E78.5 Hyperlipidemia, unspecified; I13.0 Hypertensive heart and chronic kidney disease with heart failure and stage 1 through stage 4 chronic kidney disease, or unspecified chronic kidney disease; I50.30 Unspecified diastolic (congestive) heart failure; N18.3 Chronic kidney disease, stage 3 (moderate); E11.22 Type 2 diabetes mellitus with diabetic chronic kidney disease; Z79.4 Long term (current) use of insulin; I25.10 Atherosclerotic heart disease of native coronary artery without angina pectoris; G47.33 Obstructive sleep apnea (adult) (pediatric); J96.90 Respiratory failure, unspecified, unspecified whether with hypoxia or hypercapnia; K21.9 Gastro-esophageal reflux disease without esophagitis; F41.1 Generalized anxiety disorder; F41.0 Panic disorder [episodic paroxysmal anxiety]; Z95.0 Presence of cardiac pacemaker; N32.81 Overactive bladder; E55.9 Vitamin D deficiency, unspecified; D56.9 Thalassemia, unspecified; D50.9 Iron deficiency anemia, unspecified; E87.6 Hypokalemia; E83.42 Hypomagnesemia
CPT/HCPCS: 99231-AI; C9113; G0378; J1644; J2270; J2405; J2550; J3010; J3475; J7030; J7050

== ENCOUNTER 2018-10-19 17:42 | Inpatient (IN) | payer MEDICARE, OTHER ==
[~2018-10-19] VITALS: Ht 162.6 cm; Wt 130.0 kg
[~2018-10-19 17:42] MED LIST changes: +CARAFATE 1GM1 G PO; +PROTONIX 40MG T40 MG PO
[2018-10-19 18:08] LABS: BASO # 0.1 (0.0-0.2); BASO % 0.3 % (0.0-2.0); EOS # 0.2 (0.0-0.7); EOS % 1.1 % (0-4.0); GRAN # 12.1 (1.4-6.5); GRAN % 83.3 % (42.2-75.2); HEMATOCRIT 39.1 % (37.0-47.0); HEMOGLOBIN 11.5 g/dl (12.5-16.0); LYMPH # 1.7 (1.2-3.4); LYMPH % 11.3 % (20.0-51.0); MEAN CELL VOLUME 67 fl (80.0-100.0); MEAN CORPUSCULAR HEMOGLOBIN 20 pg (27.0-31.0); MEAN CORPUSCULAR HGB CONC 29 g/dl (33.0-37.0); MONO # 0.5 (0.1-0.6); MONO % 3.3 % (1.7-9.3); PLATELET COUNT 347 K/mm3 (130-400); RED BLOOD COUNT 5.85 M/mm3 (4.10-5.30); REDCELL DISTRIBUTION WIDTH-CV 23.4 % (11.5-14.5)
[2018-10-19 18:21] LABS: ALBUMIN 4.1 gm/dL (3.5-5.0); BILIRUBIN,TOTAL 0.9 mg/dL (0.0-1.0); C-REACTIVE PROTEIN 5.6 mg/dL (0.0-0.9); CALCIUM 10.1 mg/dL (8.4-10.2); CREATININE, serum 1.21 (0.52-1.25); POTASSIUM 3.9 mmol/L (3.4-5.0); TOTAL PROTEIN 8.5 gm/dL (6.4-8.2)
[2018-10-19] MEDS ORDERED: K-DUR20 MEQ PO (22:36)
[2018-10-19] MEDS ORDERED: LASIX 40MG TABL40 MG PO (22:40)
[2018-10-19 22:43] VITALS: BP 157/91; PULSE 83; TEMP 99.2
--- NOTE | 2018-10-19 22:59 | NUR ---
Admission assessment complete. Patient c/o pain 8/10 in abdomen. Prn pain medication given. Due to patient mental status, and pain, admission assessment questions answered by Evette, daughter. Patient in bed, incontinent of urine. Fransisca-care provided, bed pads changed. Patient supine in bed. Will continue to monitor.
--- NOTE | 2018-10-19 23:16 | NUR ---
Spoke with Dr. Lowe. NG tube ok to be clamped for the night. If her condition worsens, ok to connect to intermittent suction. VTE and home meds to be reordered in the morning, per Dr. Lowe. NS @ 75ml/hr ok to be started d/t NPO status (CHF hx). Patient is to remain NPO. Will update patient.
[2018-10-20] VITALS (8 sets, daily range): BP systolic 118–188; BP diastolic 56–96; PULSE 61–76; TEMP 97.4–98.4
--- NOTE | 2018-10-20 01:00 | NUR ---
Dr. Lowe notified of BP 188/96. Prn medication ordered and given. Accuchecks and insulin also ordered per request. Will recheck BP and continue to check bg q6h. Patient updated.
--- NOTE | 2018-10-20 06:08 | NUR ---
Dr. Gonzalez notified of consult via phone call. KUB upright ordered per request.
[2018-10-20 08:04] LABS: BASO % 0.4 % (0.0-2.0); EOS # 0.1 (0.0-0.7); EOS % 1.2 % (0-4.0); GRAN # 5.3 (1.4-6.5); GRAN % 69.4 % (42.2-75.2); LYMPH # 1.4 (1.2-3.4); LYMPH % 18.8 % (20.0-51.0); MEAN CELL VOLUME 67 fl (80.0-100.0); MEAN CORPUSCULAR HGB CONC 29 g/dl (33.0-37.0); MONO # 0.8 (0.1-0.6); MONO % 9.9 % (1.7-9.3); PLATELET COUNT 292 K/mm3 (130-400); RED BLOOD COUNT 4.72 M/mm3 (4.10-5.30); REDCELL DISTRIBUTION WIDTH-CV 22.7 % (11.5-14.5)
[2018-10-20 08:09] LABS: CALCIUM 8.9 mg/dL (8.4-10.2); CREATININE, serum 1.17 (0.52-1.25); MAGNESIUM 1.3 mg/dL (1.6-2.3); POTASSIUM 3.9 mmol/L (3.4-5.0)
[2018-10-20 08:11] LABS: HEMATOCRIT 31.8 % (37.0-47.0); HEMOGLOBIN 9.3 g/dl (12.5-16.0); MEAN CORPUSCULAR HEMOGLOBIN 20 pg (27.0-31.0)
--- NOTE | 2018-10-20 08:41 | NUR ---
THIS NURSE STARTED PT ON LOW INTERMENT SUCTION TO NG TUBE PER DR. AVILA.
--- NOTE | 2018-10-20 11:00 | NUR ---
Patient was indisposed with a physician both times I went to her room.
--- NOTE | 2018-10-20 19:00 | NUR ---
PT HAS TOLERATED NG TUBE WELL. HAS NOTED GREEN DRAINAGE. NS STOPPED THIS MORNING. PT RECIEVED IV LASIX WAS C/O INCREASED URNINATING AND BEING UNABLE TO CONTROL IT AND PT BEING ON BEDREST, THIS NURSE ASKED DR. AVILA ABOUT USING THE FEMALE EXTERNAL CATHETER, RECIEVED A VERBAL ORDER TO GO AHEAD AND USE IT. AT APPROX 1200 THIS NURSE STARTED EXTERNAL CATH, WAS ABLE TO GET AN ADAPTOR TO Y SITE THE SUCTIONING, IN ORDER TO HAVE SUCTION FOR NG AND CATHETER IN PLACE GOING AT THE SAME TIME. SET THE INTERMINTANT SUCTIONING TO 40-45. PT HAS HAD FAMILY IN AND OUT TO SEE HER SOME TODAY. NO C/O PAIN OR NAUSEA THIS SHIFT. EDUCATED PT TO RATIONALLE. PT HAS BEEN ASKING FOR DIET INCREASE, WILL PASS ON TO CANT GANG SAWYER NURSE IF SHE IS ABLE TO CALL ABOUT THIS. PT REMAINS ON 2L O2 WIHOUT ISSUE. B/P HAS BEEN WNL THIS SHIFT. PT HAS BEEN USING MOUTH SWABS THAT ARE IN ICE WATER TO SWAB HER MOUTH OUT THIS SHIFT. ACCU CHECKS HAVE BEEN WNL AND PT HAS NOT NEEDED INSULIN. DAUGHTER VOICED CONSERN UPON ADMISSION TO BE NOTIFIED IF PT HAS TO HAVE SURGERY, THIS NURSE DID NOFITY HER THIS EVENING THAT IT WOULDNT BE FOR A COUPLE MORE DAYS PER THE DOCTORS NOTE DUE TO HER PLAVIX. NO OTHER ISSUES OR CONCERNS VOICED THIS SHIFT.
--- NOTE | 2018-10-20 20:20 | NUR ---
Patient assessed at this time. Alert and oriented x 4, with occasional confusion, but easily redirected. Denies having pain and discomfort. Peripheral IV to left AC flushed. Site is without redness, warmth, swelling, and pain. Denies having SOB and dyspnea. On oxygen at 2 L/min via NC. LS CTA in upper lobes, diminished in lower lobes. Respirations even and unlabored. HRR. Cap refill < 3 sec. Non-tenting skin turgor. BSAx4. Abdomen soft and non-tender. NG tube with low intermittent suction. Tolerating well. Reminded of NPO status and reasoning for bowel rest. Voiced understanding. External female catheter in place hooked up to suctioning. Denies discomfort and irritation. Clear yellow urine. 2+ edema to BLE. Denies pain and discomfort. Skin dry to BLE. Voices no questions, needs, or concerns at this time. Staff encourages repositioning every 2 hours. Resting in bed watching TV at this time. Call light is within reach. Daughter at bedside.
--- NOTE | 2018-10-21 00:16 | NUR ---
External female catheter changed. Perineal hygiene care provided. No skin break down noted. New one replaced. Tolerated well. Continues to suction clear yellow urine at this time. Patient continues to request something to eat and drink. This nurse keeps providing education on bowel rest, NG tube, and why she needs to be NPO. States she doesnt understand why she cant eat. Will continue to remind patient and provide education.
[2018-10-21 04:02] VITALS: BP 149/74; PULSE 64; TEMP 98.3
--- NOTE | 2018-10-21 05:33 | NUR ---
Patient did well during the night. Education provided on being NPO multiple times. NG tube continues to have green/brown drainage via intermittent suction. External female catheter in place. No urinary incontinence since changed around midnight. No allowing staff to reposition in bed. Resting in bed with call light within reach.
[2018-10-21 06:17] LABS: BASO % 0.4 % (0.0-2.0); EOS # 0.2 (0.0-0.7); GRAN # 5.2 (1.4-6.5); GRAN % 69.8 % (42.2-75.2); LYMPH # 1.3 (1.2-3.4); LYMPH % 17.9 % (20.0-51.0); MEAN CELL VOLUME 68 fl (80.0-100.0); MEAN CORPUSCULAR HGB CONC 29 g/dl (33.0-37.0); MONO # 0.7 (0.1-0.6); MONO % 9.5 % (1.7-9.3); PLATELET COUNT 265 K/mm3 (130-400); RED BLOOD COUNT 4.43 M/mm3 (4.10-5.30); REDCELL DISTRIBUTION WIDTH-CV 22.5 % (11.5-14.5)
[2018-10-21 06:20] LABS: HEMATOCRIT 30.3 % (37.0-47.0); HEMOGLOBIN 8.7 g/dl (12.5-16.0); MEAN CORPUSCULAR HEMOGLOBIN 20 pg (27.0-31.0)
[2018-10-21 06:28] LABS: CALCIUM 8.9 mg/dL (8.4-10.2); CREATININE, serum 1.21 (0.52-1.25); POTASSIUM 3.6 mmol/L (3.4-5.0)
[2018-10-21 07:26] VITALS: BP 134/73; PULSE 66; TEMP 98.1
--- NOTE | 2018-10-21 10:42 | NUR ---
SW met with the patient to discuss a discharge plan and to complete the Re-Admission Patient Interview. The pt was discharged home from [facility] 10/15/18 with [facility]. The pt reports she did have a follow-up appointment about a week after discharge. The pt did follow-up with her PCP before re-admission; pt reports she was advised to come to the hospital. The pt reports [facility] visits 3x weekly. Patient reports the hospital did provide diagnosis and medication education prior to last discharge. The pt reports she did have her prescriptions filled at [facility] and was taking them as prescibed. The pt lives in [place] with her daughter Evette, son Ammon and [id number]. The pt reports she has a cane, a walker that she uses daily and oxygen (receives supplies from [facility]) and pt reports she needs assistance with bathing. The pt's PCP is Dr. Gunn and pt receives medications from [facility]. The pt does have advanced directives in the EMR. SW contacted [facility] to inquire about pt's home health services. SW awaiting return call. Patient reports she does want to continue with [facility] services upon discharge. SW will continue to follow to assist with any discharge recommendations.
[2018-10-21 13:10] VITALS: BP 150/64; PULSE 62; TEMP 98
[2018-10-21 15:25] VITALS: BP 154/84; PULSE 72; TEMP 98.5
--- NOTE | 2018-10-21 19:00 | NUR ---
Report received from Brittanie STANLEY.
--- NOTE | 2018-10-21 19:18 | NUR ---
Pt resting with HOB elevated. No distress noted. Respirations even and unlabored. Lungs clear, bases diminished. 02@2L via NC. Abdomen soft, nontender. BS diminished. R nare NGT to LIWS- output is dark brown. Pure Wick External catheter checked for placement. Leaking. Bed changed. Catheter tip changed and replaced. Pericare performed. Urinary output is clear, yellow. Pt denies pain at this time. Pt denies needs. Will continue to monitor.
[2018-10-21 19:38] VITALS: BP 145/57; PULSE 63; TEMP 98.4
--- NOTE | 2018-10-21 19:47 | NUR ---
PT HAD UNEVENTFUL DAY. NG TUBE AT LOW INTERMENTANT SUCTIONING, NO ISSUES NOTED. STARTED PPN THIS SHIFT, INFUSING WITHOUT ISSUE. PT DID HAVE C/O PAIN THIS EVENING, REQUESTED SOME PAIN MEDICATION WITH RELIEF. NO OTHER ISSUES NOTED
--- NOTE | 2018-10-21 21:00 | NUR ---
Consent form for laparoscopy with possible robotic adhesionlysis with Dr. Gonzalez brought to patients room. Pt reviewed and decided she did not want to sign the consent form until her daughter was present tomorrow.
--- NOTE | 2018-10-21 21:40 | NUR ---
Pts bed changed again. External catheter not functioning. Repositioned and hook to separate portable suction device. Will continue to monitor.
[2018-10-21 23:26] VITALS: BP 133/76; PULSE 64; TEMP 98.4
[2018-10-22] VITALS (358 sets, daily range): BP systolic 147–178; BP diastolic 78–85; PULSE 59–73; TEMP 97.2–98.7; O2SAT 84–100
--- NOTE | 2018-10-22 00:46 | NUR ---
External catheter canister leaking d/t crack on bottom. Canister exchanged.
--- NOTE | 2018-10-22 05:45 | NUR ---
Pt has slept periodically throughout the night with periods of restlessness and moaning. PRN Morphine x2 doses given for comfort. R nare NGT to LIWS- resecured during the night- output has changed from dark brown to leavitt. External catheter to suction. Urinary output has been adequate since last repositioning and canister change. Pt had incontinent episodes x2 due to catheter not functioning properly last night.
[2018-10-22 06:10] LABS: BASO % 0.4 % (0.0-2.0); EOS # 0.2 (0.0-0.7); EOS % 3.4 % (0-4.0); GRAN # 4.3 (1.4-6.5); GRAN % 64.3 % (42.2-75.2); LYMPH # 1.3 (1.2-3.4); LYMPH % 19.4 % (20.0-51.0); MEAN CELL VOLUME 68 fl (80.0-100.0); MEAN CORPUSCULAR HGB CONC 29 g/dl (33.0-37.0); MONO # 0.8 (0.1-0.6); MONO % 12.2 % (1.7-9.3); PLATELET COUNT 252 K/mm3 (130-400); REDCELL DISTRIBUTION WIDTH-CV 22.5 % (11.5-14.5)
[2018-10-22 06:17] LABS: CALCIUM 8.9 mg/dL (8.4-10.2); CREATININE, serum 1.11 (0.52-1.25); MAGNESIUM 1.7 mg/dL (1.6-2.3); PHOSPHOROUS 3.6 mg/dL (2.5-4.5); POTASSIUM 3.7 mmol/L (3.4-5.0)
[2018-10-22 06:19] LABS: HEMATOCRIT 29.4 % (37.0-47.0); HEMOGLOBIN 8.4 g/dl (12.5-16.0); MEAN CORPUSCULAR HEMOGLOBIN 20 pg (27.0-31.0)
--- NOTE | 2018-10-22 07:54 | NUR ---
Pt assessment complete. Pt is sitting up in bed upon entry, she is alert and moaning. Pt unable to verbalize needs. When asked if pain medications needed, patient replies yes. PRN pain medications administered. Pt has NG tube to L nare at LIS, brown drainage visualized. Pt has external catheter in place, clear yellow urine present. IVF infusing into LAC without complications. No needs at this time. Will continue to monitor.
[2018-10-22 11:26] LABS: BILIRUBIN,TOTAL 0.7 mg/dL (0.0-1.0); CALCIUM 8.9 mg/dL (8.4-10.2); CREATININE, serum 1.12 (0.52-1.25); POTASSIUM 3.7 mmol/L (3.4-5.0); TOTAL PROTEIN 6.5 gm/dL (6.4-8.2)
--- NOTE | 2018-10-22 12:37 | NUR ---
Pt left for procedure at this time.
--- NOTE | 2018-10-22 13:36 | NUR ---
SW faxed updates to [facility]. ANTWON will continue to follow.
--- NOTE | 2018-10-22 15:43 | NUR ---
Patient report received from JADEN Gaitan in post-op recovery.
--- NOTE | 2018-10-22 15:45 | NUR ---
Patient transferred to ICU 6 by 2 post-op recovery nurses with no complications. Patient connected to bedside monitor, vital signs are stable. Full assessment completed. Call light placed within reach. Bed in lowest position. Side rails up x3. Family retrieved from waiting room and at the bedside, updated on patient's current status.
--- NOTE | 2018-10-22 17:03 | NUR ---
Medication reconciliation completed with previous H&P and daughter's verification.
--- NOTE | 2018-10-22 17:30 | NUR ---
Patient's neuro status reassessed. Patient able to state her name and birthday and that she is not in pain. When asked why she continues to 'hoot' patient responds with "I dont know". Patient is unable to state where she is, what time it is, or why she is here.
--- NOTE | 2018-10-22 19:00 | NUR ---
Bedside report received from JADEN Pete. This nurse assists Yanci with placing purewick external catheter. Patient tolerates well. Transfer of care at this time.
--- NOTE | 2018-10-22 19:00 | NUR ---
Bedside shift report given to JADEN Eric at this time.
--- NOTE | 2018-10-22 19:45 | NUR ---
Upon entrance into the room patient is hollering out. Patient does calm down slightly when her hand is held. Patient is restless and looks as if she is in pain. When asked if she is in pain she says "yes", but is unable to provide a number. Pain medication provided. Assessment complete. She is alert and partially oriented. Follows commands. Lungs are clear and diminished. HR and rhythm regular with normal S1 and S2 heard. Bowel sounds are hypoactive. After receiving pain meds, patient lays back and falls asleep. No further needs at this time. Will continue to monitor. Call light within reach
--- NOTE | 2018-10-22 23:30 | NUR ---
Patient awake at this time and calling out again. Patient is sitting forward upon extrance into the room and is yelling. she is trying to scoot herself down in the bed to get out around the siderail. Attempted to talk to patient and calm her down, but she is not responsive to any commands and continues to yell out as loud as she can. Patient beings shaking the siderails and calling out for someone named "Javi", patient is not redirectable. Pain medications given with no change. NIKKY Chen puts in order for Ativan to be given. Ativan administered. After several minutes, patient begins to calm down. Repositioned patient in the bed and fixed her pillows. After 10mins have passed, patient is now asleep. Vitals obtained. Will continue to monitor. Call light within reach.
[2018-10-23] VITALS (342 sets, daily range): BP systolic 112–168; BP diastolic 63–98; PULSE 52–77; TEMP 96.9–98; O2SAT 62–100
--- NOTE | 2018-10-23 02:00 | NUR ---
Patient is very agitated again and trying to climb out of bed. Patient is not following commands and wont answer questions. Patient does appear to be in pain. Medication to be provided.
--- NOTE | 2018-10-23 04:00 | NUR ---
Patient asleep at this time. Assessment complete and no changes from previous exam. Vitals obtained and remain stable. No further needs at this time. Will continue to monitor.
--- NOTE | 2018-10-23 05:10 | NUR ---
In patient room with JADNE Jones to help get patient cleaned up and linens changed because she has been incontinent of urine. Patient cooperates in the beginning but becomes more and more agitated, not following commands and screaming as loud as she can. Patient is unable to be redirected. Linens changed and patient cleaned up. New Purewick placed and suction tubing adjusted. There was a problem with the previous canister. Patient continues to scream and try to climb out of bed. Karen remained with patient at medications were obtained. Morphine and Ativan administered. After 7 minutes patient begins to calm down. This nurse remained at bedside until patient was asleep. Patient is responsive when she is touched or the blankets are moved. Will allow patient to rest. No further needs. Call light within reach.
[2018-10-23 05:14] LABS: BASO % 0.1 % (0.0-2.0); GRAN # 7.1 (1.4-6.5); GRAN % 85.9 % (42.2-75.2); LYMPH # 0.8 (1.2-3.4); LYMPH % 9.2 % (20.0-51.0); MEAN CELL VOLUME 69 fl (80.0-100.0); MEAN CORPUSCULAR HGB CONC 28 g/dl (33.0-37.0); MONO # 0.4 (0.1-0.6); MONO % 4.2 % (1.7-9.3); PLATELET COUNT 289 K/mm3 (130-400); REDCELL DISTRIBUTION WIDTH-CV 22.7 % (11.5-14.5)
[2018-10-23 05:15] LABS: HEMATOCRIT 30.9 % (37.0-47.0); HEMOGLOBIN 8.7 g/dl (12.5-16.0); MEAN CORPUSCULAR HEMOGLOBIN 19 pg (27.0-31.0)
[2018-10-23 05:27] LABS: CREATININE, serum 1.08 (0.52-1.25); MAGNESIUM 1.7 mg/dL (1.6-2.3); PHOSPHOROUS 3.9 mg/dL (2.5-4.5); POTASSIUM 3.9 mmol/L (3.4-5.0)
--- NOTE | 2018-10-23 07:00 | NUR ---
Bedside shift report received from JADEN Eric. Patient is currently sleeping between disturbances. Full assessment completed. Bed alarm on and functioning appropriately. Call light within reach. Bed in lowest position. Side rails up x3. Patient becomes agitated and loudly 'hoots'. Patient does answer answer questions appropriately.
--- NOTE | 2018-10-23 07:12 | NUR ---
Bedside report given to JADEN Pete. All lines and medications reviewed. Transfer of care at this time.
--- NOTE | 2018-10-23 08:36 | NUR ---
Patient awake and 'hooting' again. When assessing patient's neurological status, patient does not answer any questions appropriately. Patient only answers with 'hoots'.
--- NOTE | 2018-10-23 09:36 | NUR ---
Report called to JADEN Cruz at this time.
--- NOTE | 2018-10-23 10:15 | NUR ---
Patient transferred to surgical bed 326 with no complications. JADEN Cruz at bedside to assess patient. Bed in lowest position. Call light placed within reach. Care handed over to JADEN Cruz at this time.
--- NOTE | 2018-10-23 10:48 | NUR ---
SW rounded with the team. Patient has orders to move to the surgical floor today, 10/23. ANTWON will continue to follow.
--- NOTE | 2018-10-23 11:25 | NUR ---
Pt was transfered from ICU to room 326. She is initally awake and "hooting." Does not answer questions approriately. IVF & TPN are infusing per order into right upper arm PICC line. REVIEW TRAINER of morphine started per order and verified with JADEN Larsen. Purewick external catheter to suction, clear yellow urine noted. Resp. are even and unlabored on 2L O2 per NC, sats 100%. After REVIEW TRAINER initiated pt settled down and is no longer hollering out. Pt visible from nurse's station. Bed alarm is on.
--- NOTE | 2018-10-23 13:18 | NUR ---
Pt calling out, lifting herself up in bed and leaning over railing. Continually attempting to pull of gown and on cords after multiple attemps to redirect. Pt was given PRN ativan for this.
[2018-10-23 13:45] LABS: PRE ALBUMIN 7.9 mg/dL (17.6-36.0)
--- NOTE | 2018-10-23 14:32 | NUR ---
Pt is sleeping quietly in bed. Bed alarm is on.
--- NOTE | 2018-10-23 17:52 | NUR ---
Pt continues to sleep quietly in bed. Bed alarm is on.
--- NOTE | 2018-10-23 19:57 | NUR ---
Pt sleeping. Easily arousable. Pt is alert, but drowsy. She is confused and does not answer questions. Pt moans constantly while awake. Morphine CHIEF SCIENTIFIC OFFICER pump with basal rate infusing to R UA PICC line. TPN also infusing to MIKE PICC line. Respirations even and unlabored at this time. Shallow breathing while asleep. Pt is on O2@2L- Spo2 is 99%. EtCo2 50. RR 16. Lungs clear, but diminished. Abdomen soft, nontender. BS hypoactive. Lap sites x5 to abdomen- edges well approximated. Purewick external catheter to suction. Urinary output is suzy. Catheter tip exchanged. 1+ edema noted to BLE.
--- NOTE | 2018-10-23 20:45 | NUR ---
Pts EtCO2 alarm was going off while nurse was in another room. Alerted by RT. Pts EtCO2 reading 65. Pt is sleeping. Respirations are shallow and through her mouth. Pt easily arousable. EtCO2 decreased to 47 when awake. Pt is on O2@2L via NC- spo2 is 99%. Will continue to monitor.
[2018-10-24] VITALS (8 sets, daily range): BP systolic 112–170; BP diastolic 51–102; PULSE 51–90; TEMP 97.1–98.4
--- NOTE | 2018-10-24 03:20 | NUR ---
Pt has been moaning off and on throughout the night. Pt became very agitated at 0300. She pulled her external catheter out of place and was grabbing at her IV tubing. She would not keep her O2 and EtcO2 monitor on. Pt repositioned, external catheter tip replaced and positioned, pericare provided. PRN Ativan given. Will continue to monitor.
[2018-10-24 05:48] LABS: BASO % 0.2 % (0.0-2.0); EOS % 0.3 % (0-4.0); GRAN # 7.5 (1.4-6.5); LYMPH # 1.2 (1.2-3.4); LYMPH % 12.3 % (20.0-51.0); MEAN CELL VOLUME 69 fl (80.0-100.0); MEAN CORPUSCULAR HGB CONC 28 g/dl (33.0-37.0); MONO # 1.2 (0.1-0.6); MONO % 11.7 % (1.7-9.3); PLATELET COUNT 299 K/mm3 (130-400); RED BLOOD COUNT 4.41 M/mm3 (4.10-5.30); REDCELL DISTRIBUTION WIDTH-CV 22.5 % (11.5-14.5)
[2018-10-24 05:55] LABS: HEMATOCRIT 30.5 % (37.0-47.0); HEMOGLOBIN 8.5 g/dl (12.5-16.0); MEAN CORPUSCULAR HEMOGLOBIN 19 pg (27.0-31.0)
[2018-10-24 05:56] LABS: CALCIUM 9.2 mg/dL (8.4-10.2); CREATININE, serum 1.34 (0.52-1.25); MAGNESIUM 1.8 mg/dL (1.6-2.3); PHOSPHOROUS 3.3 mg/dL (2.5-4.5)
[2018-10-24 06:03] LABS: PRE ALBUMIN 9.7 mg/dL (17.6-36.0)
--- NOTE | 2018-10-24 06:18 | NUR ---
Pt has been resting well since giving PRN Ativan x1. VSS and EtCO2 stable. 0300 dose of Lopressor held d/t pts BP being lower than baseline and pt getting Ativan.
--- NOTE | 2018-10-24 10:49 | NUR ---
Patient yelling out, aggitated, attempting to get up out of bed. PRN dose of ativan given.
--- NOTE | 2018-10-24 10:57 | NUR ---
ANTWON attended clinical rounds. The patient continues to flaherty and holler out. The patient's MOLD REPAIRER was stopped. Plan is to start the patient on oral medications and a liquid diet. PT/OT have been ordered. ANTWON contacted Financial Counselor, Petros, to inquire if the patient or patient's family sent them the patient's bank statements and life insurance cover sheet to complete the Medicaid karina. Petros reports that they have not received those documents. Bea, APS worker, then arrived at the hospital and attempted to meet with the patient. ANTWON then collaborated with Bea. Bea plans to contact the patient's daughter, Evette. ANTWON to contact the patient's daughter and will continue to follow.
--- NOTE | 2018-10-24 16:17 | NUR ---
The patient's daughter, Evette, arrived at the hospital and provided SW with the fax number to the patient's life insurance, [employer]. SW faxed [employer] the patient's DPOA-HC and provided them with [facility]'s fax number to send the life insurance cover sheet. ANTWON also requested that they contact the patient's daughter. Evette reports that she will contact [employer] if she does not hear anything from them. SW to continue to follow.
--- NOTE | 2018-10-24 19:40 | NUR ---
Patient has been yelling out throughout the day. Son and daughter in to visit patient, state she is usually like this when she has a UTI. Patient given medication for anxiety and agitation per orders. TPN continue to infuse to MIKE PICC line per orders. Reported off to restaurant shift leader.
--- NOTE | 2018-10-25 01:48 | NUR ---
Upon arrival to the shift, patient noted to be constantly screaming. Patient appeared as if she was looking through you and not focusing with her eyes. Eyes slightly reactive to light. Patient does not talk to staff, but just screams. Staff x2 repositions patient and she attempts to go back to her right side propped up on her right arm. Geodon PRN given at 2000. Noted to be effective for about an hour and patient continues to scream. Ativan given at 2300. Not effective. Morphine given at 0020, this was not effective and April was at the desk and ordered another dose be given. This was given at 0050. She increased the frequency of the morphine to q2 hours PRN. Patient currently resting with no screaming noted. Patient noted to have nonlabored breathing, thats even and WNL. O2 at 98%. Will continue to monitor patient closely.
[2018-10-25 02:45] VITALS: BP 156/101; PULSE 95; TEMP 97.6
--- NOTE | 2018-10-25 03:35 | NUR ---
PRN Morphine and Geodon given d/t patient screaming out again. Noted to be effective. Patient resting comfortably at this time. Repositioning attempted, but patient went back to previous position on her right side.
[2018-10-25 04:30] VITALS: BP 156/100; PULSE 85; TEMP 98.4
[2018-10-25 06:50] LABS: BASO # 0.1 (0.0-0.2); EOS # 0.1 (0.0-0.7); EOS % 1.7 % (0-4.0); GRAN % 57.8 % (42.2-75.2); LYMPH # 1.5 (1.2-3.4); LYMPH % 21.1 % (20.0-51.0); MEAN CELL VOLUME 68 fl (80.0-100.0); MEAN CORPUSCULAR HGB CONC 28 g/dl (33.0-37.0); MONO # 1.2 (0.1-0.6); MONO % 17.1 % (1.7-9.3); PLATELET COUNT 282 K/mm3 (130-400); RED BLOOD COUNT 4.46 M/mm3 (4.10-5.30); REDCELL DISTRIBUTION WIDTH-CV 22.3 % (11.5-14.5)
[2018-10-25 06:57] LABS: CALCIUM 9.2 mg/dL (8.4-10.2); CREATININE, serum 1.11 (0.52-1.25); MAGNESIUM 1.7 mg/dL (1.6-2.3); PHOSPHOROUS 2.7 mg/dL (2.5-4.5); POTASSIUM 3.6 mmol/L (3.4-5.0)
[2018-10-25 06:58] LABS: HEMATOCRIT 30.5 % (37.0-47.0); HEMOGLOBIN 8.6 g/dl (12.5-16.0); MEAN CORPUSCULAR HEMOGLOBIN 19 pg (27.0-31.0)
[2018-10-25 08:45] VITALS: BP 152/74; PULSE 76; TEMP 97.5
--- NOTE | 2018-10-25 10:20 | NUR ---
PATIENT ASSESSMENT COMPLETED. NOTED ELEVATED BP, GAVE SCHEDULED METOPROLOL. ALL OTHER VSS. PATIENT IS NOT ALERT/ORIENTED. PATIENT IS VERY CONFUSED AND ONLY RESPONDS TO PHYSICAL STIMULI. PATIENT YELLS OUT AND MOANS FREQUENTLY. PATIENT DOES NOT COMMUNICATE WTIH STUFF, JUST LOOKS BEYOND WHEN TRYING TO TALK TO PATIENT. PATIENT IS HERE FOR ABDOMINAL PAIN, PATIENT IS OBESE WITH ABDOMINAL LAP SITES X5, ALL CLEAN DRY AND INTACT. PATIENT DOES NOT APPEAR TO BE NAUSEATED. TPN INFUSING TO RIGHT UPPER ARM PICC. EXTERNAL GAVIN CATHETER IN PLACE, DRAINING CLEAR/YELLOW URINE TO SUCTION. HEAD TO TOE ASSESSMENT COMPLETE. PATIENT HEART SOUNDS IRREGULAR AND ON TELE. LUNG SOUNDS DIMINISHED IN ALL QUADRANTS. PATIENT RESTING IN BED, CALL LIGHT WITHIN REACH. WILL CONTINUE TO MONITOR. BED ALARM IN PLACE
[2018-10-25 11:54] VITALS: BP 137/66; PULSE 50; TEMP 97.6
--- NOTE | 2018-10-25 14:50 | NUR ---
ANTWON collaborated with the patient's PA-Liam, Aishwarya, to order a palliative care consult to discuss goals of care with the patient's family. ANTWON attempted to contact Bea, APS Worker, to inquire if she has been in contact with the patient's daughter. ANTWON left a voicemail. ANTWON then contacted the patient's daughter, Evette, to discuss the probability of the patient needing a higher level of care upon discharge vs going back home with home health. The patient's daughter verbalized understanding. ANTWON discussed the importance of sending referrals to facilities not just in the [place] area. The patient's daughter was only agreeable to sending referrals to the three facilities in [place]. She states that she wants their decisions, before considering a facility outside of [place]. ANTWON contacted and faxed a referral to [facility], [facility], and [facility]. SW awaiting their screenings. ANTWON also asked the patient's daughter on status of receiving the patient's bank statements and if she has heard back from the life insurance [employer]. The patient's daughter reports that she was on hold with the life insurance [employer] for an hour and did not get an update on whether they received the patient's DPOA-HC or not. She states she will try back again later. She states that she did call the bank and they informed her that they have mailed the patient's bank statements.
--- NOTE | 2018-10-25 15:56 | NUR ---
Bea, APS Worker, contacted and reports that she has not had a chance to speak with the patient's daughter yet. She states that she will try and get a hold of the daughter today.
--- NOTE | 2018-10-25 16:30 | NUR ---
Mihaela, at [facility], reports that they are unable to accept the patient. SW to inform the patient's daughter and will continue to follow.
[2018-10-25 16:52] VITALS: BP 159/99; PULSE 83; TEMP 98.5
[2018-10-25 19:40] VITALS: BP 141/123; PULSE 110; TEMP 99
[2018-10-26 00:27] VITALS: BP 149/96; PULSE 101; TEMP 97.3
[2018-10-26 03:12] VITALS: BP 205/109; PULSE 68; TEMP 97.6
--- NOTE | 2018-10-26 03:34 | NUR ---
Patient continues to yell out constantly. Appears to "look through" staff and doesn't respond. Will quiet for a couple minutes at a time. At 0030, this nurse called Dr. Bender for any options because patient was not responding to morphine or ativan and had only at 45 minute span of sleep in the 6 hour span. He ordered 1mg Ativan IV now. This was administered and patient noted to fall asleep. Patient slept until about 0300 when EKG and metoprolol was needing to be administered. Patient began to yell out during cares and while medication was administered. Patient appears more agitated and is constantly moving. Skin shear noted to right elbow. Covered with mepilex. Administered PRN morphine and Geodon. Awaiting results.
[2018-10-26 06:32] LABS: CALCIUM 9.1 mg/dL (8.4-10.2); CREATININE, serum 0.96 (0.52-1.25); POTASSIUM 3.4 mmol/L (3.4-5.0)
--- NOTE | 2018-10-26 06:42 | NUR ---
Patient noted to quiet at about 0400. Has continued to rest comfortably since then. Will report off to day shift nurse.
[2018-10-26 08:24] VITALS: BP 160/75; PULSE 76; TEMP 97.9
--- NOTE | 2018-10-26 10:43 | NUR ---
ASSESSMENT COMPELTED ON PATIENT. PATIENT CONDITION HAS NOT CHANGED FROM YESTERDAY. PATIENT IS DX WITH ABDOMINAL PAIN/LYSIS OF ADHESION. PATIENT HAS 5 LAP SITES, AND THEY ARE ALL CLEAN, DRY, AND INTACT. PATIENT IS NOT ALERT OR ORIENTED. VSS WITH SOME HYPERTENSION. METOPROLOL GIVEN TO PATIENT THIS MORNING ALONG WITH OTHER MORNING MEDICATIONS. PATIENT BARELY OPENS EYES AND WHEN DOES, LOOKS RIGHT THROUGH STAFF. PATIENT MOANS AND YELLS THROUGHOUT MORNING. PATIENT GIVEN PRN MORPHINE AND ATIVAN. PATIENT REPOSITIONED ON RIGHT SIDE WITH 2 PERSON ASSIST. PATIENT ON TPN AND PATIENT HAS EXTERNAL CATHETER. URINE IS CLEAR/YELLOW. PATIENT HAS PICC IN RIGHT UPPER ARM WHICH SHOWS NO SIGNS OF INFECTION. WILL CONTINUE TO MONITOR
--- NOTE | 2018-10-26 11:17 | NUR ---
Spoke with daughter Evette by phone. Expressed concern over the lack of improvement being shown by P[facility] and what this may be leading to--"Worried that time may be short". Repeated SBO has led to multiple admissions, adhesiolysis done 10/22. Family aware that medical care is being as aggressive as possible but still no improvement. Daughter repeatedly states "I just don't know what else to do". Pt's denominational beliefs have given her strength in the past and daughter will call casino surveillance officer to come see her to see if this will help. Family should be gathering this weekend to discuss further what goals of care are.
--- NOTE | 2018-10-26 11:40 | NUR ---
AIVS AT BEDSIDE TO CHANGE PICC LINE DRESSING. PATIENT FOUND TO HAVE DISCONNECTED TPN TUBING FROM HER CONSTANT MOVING AND SCREAMING. NEW TPN TUBING HUNG.
--- NOTE | 2018-10-26 12:00 | NUR ---
PICC intact right upper arm with sterile technique right upper arm with sterile dressing change done with insertion site cleansed with chloraprep x 1, chlorhexidine impregnated disk, skin prep, stat lock, and tegaderm applied. no signs or symptoms of IV complications noted. patient samantha and ara constantly. arm held by JADEN.
[2018-10-26 12:13] VITALS: BP 145/98; PULSE 89; TEMP 97.7
[2018-10-26 12:15] LABS: MAGNESIUM 1.7 mg/dL (1.6-2.3); PHOSPHOROUS 3.1 mg/dL (2.5-4.5)
--- NOTE | 2018-10-26 12:30 | NUR ---
PATIENT SCREAMING AGAIN AND TRYING TO SIT UP IN BED. PATIENT GRABBING FOR BED RAIL. PATIENT'S EYES ARE STILL GLASSED OVER AND DOES NOT MAKE EYE CONTACT OR COMMUNICATE WITH STAFF IN ANY WAY. PATIENT GIVEN PRN HALDOL FOR AGGITATION. PATIENT REPOSITIONED TO COMFORT UP IN BED WITH MANY PILLOWS. BED ALARM ON.
--- NOTE | 2018-10-26 13:35 | NUR ---
PATIENT CONTINUES TO SCREAM AND TRY TO SIT UP IN BED. PATIENT DIDN'T SEEM EFFECTED BY PRN HALDOL DOSE. GAVE PRN MORPHINE.
[2018-10-26 16:40] VITALS: BP 152/108; PULSE 89; TEMP 97.2
--- NOTE | 2018-10-26 16:48 | NUR ---
ANTWON collaborated with Palliative Care Nurse, Merari. Merari informed ANTWON that she spoke to the patient's daughter, Evette, and Evette reports that she is overwhelmed with what is going on and what to do. Evette would like to contact their sustainability coach to come and see her mother. She states that her sister will be coming to visit the patient this weekend and that she would like to talk to her siblings to make a decision on what to pursue. ANTWON then attended clinical rounds. The hospitalist is recommending [facility] at this time. ANTWON then spoke with the patient's daughter and discussed this option and palliative care. The patient's daughter reports that she is unsure of what to do at this time. She states she would like to discuss the options with the rest of the family. Evette was agreeable for ANTWON to send a referral to [facility] ANTWON contacted and faxed a referral to Carrie at [facility] ANTWON awaiting their screening and Carrie states that they would need to get authorization from the patient's insurance, if she does meet criteria for [facility]. The patient's daughter requested the SW contact the [facility] for them to notify her of the patient's situation. ANTWON contacted the [facility] and submitted a case. Case #[id number]. Vnih at [facility] and Paul at [facility] report that they are both unable to accept the patient for a skilled stay. SW awaiting [facility]s screen and will continue to follow.
[2018-10-26 20:14] VITALS: BP 150/100
[2018-10-27 00:40] VITALS: BP 150/98; PULSE 103; TEMP 98.3
--- NOTE | 2018-10-27 01:14 | NUR ---
Patient noted to be screaming out around 1999. She was squirming around in bed and does not respond to verbal stimuli, but does respond to physical stimuli. Patient does not follow commands. Soft mitts to bilateral hands d/t patient pulling at PICC line, telemetry, and external catheter. Patient attempts to prop herself up on her elbows, but notes to get tired easily and lies back. BP is very hard to obtain d/t patient not lying still and screaming. PICC in place to right upper arm where TPN is infusing. Haldol 1mg and Morphine 2mg IV given at 1999. This was noted to be effective till about 0000 when patient started screaming out again. Upon entry to room, patient is continuing to attempt to prop herself up and is constantly moving about in the bed. Patient will look at you, but continues to not verbalize with staff. Does not follow commands. 1mg Haldol and 2mg Morphine IV given. Not effective. Repeat dose of Haldol given per orders. Patient noted to cry out a little less, but at this time is continuing to scream out. External catheter changed at 0000. Pericare completed. Will continue to monitor patient.
[2018-10-27 03:49] VITALS: BP 140/98; PULSE 103; TEMP 98
[2018-10-27 07:17] LABS: BASO # 0.1 (0.0-0.2); BASO % 0.7 % (0.0-2.0); EOS # 0.2 (0.0-0.7); EOS % 2.7 % (0-4.0); GRAN # 5.5 (1.4-6.5); GRAN % 66.5 % (42.2-75.2); LYMPH # 1.4 (1.2-3.4); LYMPH % 16.7 % (20.0-51.0); MEAN CELL VOLUME 68 fl (80.0-100.0); MEAN CORPUSCULAR HGB CONC 28 g/dl (33.0-37.0); MONO # 1.1 (0.1-0.6); MONO % 12.7 % (1.7-9.3); PLATELET COUNT 303 K/mm3 (130-400); RED BLOOD COUNT 4.72 M/mm3 (4.10-5.30); REDCELL DISTRIBUTION WIDTH-CV 22.5 % (11.5-14.5)
[2018-10-27 07:18] LABS: MEAN CORPUSCULAR HEMOGLOBIN 19 pg (27.0-31.0)
[2018-10-27 07:26] LABS: CALCIUM 9.5 mg/dL (8.4-10.2); POTASSIUM 3.7 mmol/L (3.4-5.0)
[2018-10-27 09:22] VITALS: BP 161/86; PULSE 90; TEMP 96.4
[2018-10-27 12:31] VITALS: BP 154/110; PULSE 90; TEMP 96.4
[2018-10-27 17:30] VITALS: BP 163/84; PULSE 90; TEMP 97.7
--- NOTE | 2018-10-27 18:00 | NUR ---
Sleeps at intervals after prn medication. Moans loudly. No verbal response to questions. Does make occasional eye contact. Does not follow direction. Sits up in bed and puts leg out of bed. Repositioned in bed with two staff assist. Will not swallow po fluids. TPN infusing per PICC. Daughter at bedside.
--- NOTE | 2018-10-27 19:00 | NUR ---
Report received. Assumed care for watch repairer. Assessment complete. VS stable. Family at bedside requesting pain medications. Pain scale used: Assume pain present. Yelling out, grimacing, grasping at people/side rails. Morphine given IV per dr order. Daughter requesting Haldol as well. Discussed waiting to see if morphine helps and administering Haldol after 30minutes if still not calm. Verbalizes understanding. O2@2L/NC. PICC to right upper arm-TPN@ 98.9ml/hr infusing to purple port. Red port with good blood return/flushed well. External cath with clear yellow urine to suction cannister. Will monitor Morphine effectiveness. Encouraged family to call with questions or concerns. Verbalizes understanding. Will monitor.
[2018-10-27 19:58] VITALS: BP 158/86; PULSE 87; TEMP 98.4
[2018-10-28] VITALS: BP 153/85; PULSE 90; TEMP 98.4
[2018-10-28 03:00] VITALS: BP 152/91; PULSE 88; TEMP 97.8
[2018-10-28 06:00] LABS: BASO # 0.1 (0.0-0.2); EOS # 0.2 (0.0-0.7); EOS % 2.1 % (0-4.0); GRAN # 6.2 (1.4-6.5); GRAN % 65.8 % (42.2-75.2); LYMPH # 1.6 (1.2-3.4); LYMPH % 16.6 % (20.0-51.0); MEAN CELL VOLUME 67 fl (80.0-100.0); MEAN CORPUSCULAR HGB CONC 29 g/dl (33.0-37.0); MONO # 1.3 (0.1-0.6); MONO % 13.8 % (1.7-9.3); PLATELET COUNT 305 K/mm3 (130-400); REDCELL DISTRIBUTION WIDTH-CV 22.6 % (11.5-14.5)
[2018-10-28 06:06] LABS: HEMATOCRIT 30.9 % (37.0-47.0); MEAN CORPUSCULAR HEMOGLOBIN 20 pg (27.0-31.0)
[2018-10-28 06:11] LABS: CALCIUM 9.4 mg/dL (8.4-10.2); CREATININE, serum 1.09 (0.52-1.25); MAGNESIUM 1.8 mg/dL (1.6-2.3); POTASSIUM 4.1 mmol/L (3.4-5.0)
[2018-10-28 09:13] VITALS: BP 119/86; PULSE 82; TEMP 97.5
[2018-10-28 12:55] VITALS: BP 161/80; PULSE 90; TEMP 97.4
--- NOTE | 2018-10-28 17:28 | NUR ---
Patient laying in bed upon shift assessment at beginning of the shift. Per report patient moaned and yelled all night long. Patient continues to moan and yell throughout entirety of shift despite any medication intervention. At beginning of shift patient had removed mitts and disconnected her TPN from her PICC line. Cap cleaned and replaced and TPN resumed. Patient has been unable to remove mitts for the remainder of shift. Family has stopped in to see patient and daughters talked with Dr. Lowe this morning. External female catheter to suction with good output as documented. This afternoon patient ate thickened sprite and strawberry ice cream but continued moaning. Patient is non-compliant with SCD's but dose have lovenox ordered. Bed has been in low position with bed alarm on.
[2018-10-28 17:35] VITALS: BP 155/96; PULSE 84; TEMP 99.1
[2018-10-28 19:43] VITALS: BP 134/51; BP 162/98; PULSE 84; PULSE 87; TEMP 98.3; TEMP 98.7
[2018-10-29 00:08] VITALS: BP 155/81; PULSE 92; TEMP 98
--- NOTE | 2018-10-29 02:00 | NUR ---
EXTERNAL CATHETER CHANGED.
--- NOTE | 2018-10-29 04:04 | NUR ---
PT HAS RESTED QUIETLY FOR A FEW SHORT PERIODS BUT HAS BEEN VERY VOCAL OTHERWISE, YELLING AND CRYING OUT. PT HAS TRIED TO SAY SOME WORDS BUT IS USUALLY NO UNDERSTANDABLE. PT DID EAT SOME ICE CREAM WHEN FAMILY WAS HERE. PT RESTED FOR A FEW HOURS AFTER GETTING ATIVAN. SHE DID NOT REST AFTER GETTING HALDOL.
[2018-10-29 04:17] VITALS: BP 155/82; PULSE 85; TEMP 98.2
[2018-10-29 06:58] LABS: CREATININE, serum 1.02 (0.52-1.25); MAGNESIUM 1.9 mg/dL (1.6-2.3); PHOSPHOROUS 3.4 mg/dL (2.5-4.5)
[2018-10-29 08:29] VITALS: BP 136/112; PULSE 52; TEMP 97.8
--- NOTE | 2018-10-29 09:12 | NUR ---
PATIENT ASSESSMENT COMPELTED. PATIENT IN ROOM MOANING AND CRYING OUT. PATIENT NOT ALERT/ORIENTED. VSS. BP HAS BEEN ELEVATED. MORNING MEDICATIONS GIVEN. PATIENT HAS 5 LAP SITES IN WHICH ALL ARE CLEAN, DRY, AND INTACT. PATIENT DID LOOK AT STAFF WHEN CALLED HER NAME. PATIENT SEEMS TO BE A LITTLE MORE ALERT THIS MORNING. PATIENT DID YELL OUT LOUDER WHEN GIVEN LOVENOX INJECTION. PATIENT HAS PICC LINE IN RIGHT UPPER ARM WITH TPN. PATIENT DOES HAVE EXTERNAL CATHETER. PATIENT LYING IN BED SUPINE. WILL CONTINUE TO MONITOR FOR PAIN
--- NOTE | 2018-10-29 09:37 | NUR ---
NURSING WAS IN PATIENTS ROOM, NURSING WAS WALKING OUT, PATIENT YELLED OUT "COME BACK HERE." NURSING ENTERED BACK IN ROOM AND ASKED PATIENT IF SHE WAS IN PAIN, PATIENT STATED SHE WAS NOT. PATIENT WAS GIVEN PRN 2MG OF HALDOL. PATIENT MOUTH CLEANED OUT WITH SWAB. PATIENT IS STILL MOANING/YELLING OUT
[2018-10-29 16:55] VITALS: BP 173/99; PULSE 84; TEMP 98.7
[2018-10-29 20:09] VITALS: BP 166/103; PULSE 92; TEMP 98
[2018-10-29 21:00] VITALS: BP 165/103
--- NOTE | 2018-10-29 21:03 | NUR ---
Shift assessment complete. Patient in bed, moaning. Patient unable to answer assessment questions. BP 166/103, scheduled IV antihypertensive given via PICC. Will recheck BP. Patient appears to be uncomfortable, facial grimacing amd moaning. Prn pain medication given. Patient continues to moan and yell, this is her baseline for the last week according to report from previous shift. External catheter patent. Will reposition patient after her ativan dose is given. Will continue to monitor.
[2018-10-30] VITALS: BP 158/108; PULSE 93; TEMP 97.4
[2018-10-30 04:00] VITALS: BP 96/66; PULSE 89; TEMP 98.4
--- NOTE | 2018-10-30 05:13 | NUR ---
Patient in bed, moaning loudly. Appears uncomfortable. IV pain medication given, ativan IV given for comfort. Attempted to call Dr. Bender x2 to increase ativan and morphine dose, left message. Waiting for call back. Will continue to monitor.
[2018-10-30 08:53] VITALS: BP 170/110; PULSE 94; TEMP 98.3
--- NOTE | 2018-10-30 09:13 | NUR ---
Hair, at [facility], contacted ANTWON and requested updates and confirmation on codes. ANTWON confirmed codes and faxed Hair updates. SW to continue to follow.
--- NOTE | 2018-10-30 11:24 | NUR ---
ANTWON contacted the patient's daughter, Evette, to discuss goals of care. Evette reports that her and her family are leaning towards hospice care. SW discussed hospice in a long-term, hospice house, and hospice in the home. The patient's daughter reports that she does not think she would be able to afford doing hospice at a facility or the hospice house. Evette reports that her and her brother will be up to the hospital around noon and would like to discuss the options again then. Hair, at [facility], then contacted ANTWON and reports that they can accept the patient and that they received approval from the patient's insurance. ANTWON to inform the patient's daughter and will continue to follow.
--- NOTE | 2018-10-30 11:39 | NUR ---
PT RESTING IN BED AND MOANING LOUDLY BEFORE. TURNING Q2 HR. PROVIDED INCONTINENT CARE X2 THIS AM. PT UNABLE TO HELP DURING CARES AND IS UNABLE VERBALIZE NEEDS/WANTS. PICC LINE INPLACE WITH TPN RUNNING, AM MEDS GIVEN THROUGH CENTRAL LINE NOT RUNNING TPN. FAMILY TO DISCUSS HOSPICE CARE AND BE INCONTACT WITH PRINT WASHER.
[2018-10-30 12:33] VITALS: BP 165/125; PULSE 80; TEMP 98
--- NOTE | 2018-10-30 14:05 | NUR ---
The patient's daughter (Evette) and son arrived at the hospital. ANTWON and Palliative Care Nurse, Merari, then met with Evette and the patient's son. The patient's daughter, Evette, reports that they just want to keep the patient comfortable and have decided to pursue hospice. Merari discussed hospice in the home, hospice at a facility, and the hospice house again. The patient's daughter expressed her concerns for finances, but states that she and the rest of her family would not be able to take care of the patient in the home. Evette reports that they would be interested in the [facility] for the patient and would like to tour the facility. ANTWON contacted and faxed a referral to L[facility]. Lg, at [facility], reports that she still needs to screen the referral, but that if they can accept; they may not be able to accept the patient until . A tour of the facility was scheduled for around [id number]. ANTWON informed the patient's daughter. The patient's daughter requested that SW contact the [facility] again to update them of the patient transitioning to hospice. ANTWON contacted and updated the [facility]. SW to continue to follow.
[2018-10-30 14:33] VITALS: BP 149/114
[2018-10-30 20:42] VITALS: BP 142/74; PULSE 87; TEMP 97.7
[2018-10-31 00:17] VITALS: BP 126/83; PULSE 82; TEMP 98
[2018-10-31 02:33] VITALS: BP 126/65; PULSE 75; TEMP 97.9
--- NOTE | 2018-10-31 02:59 | NUR ---
PATIENT IN BED. SLIGHTLY AGITATED THROUGHOUT THE NIGHT. EXTERNAL CATHETER CHANGED AND HOOKED UP TO SUCTION. PERICARE DONE. ORAL CARE DONE SEVERAL TIMES THROUGHOUT NIGHT. PATIENT SEEMS TO BE IN PAIN. MORPHINE GIVEN. PATIENT TOLERATED PO ENSURE AND SOME APPLESAUCE. WILL CONTINUE TO MONITOR.
[2018-10-31 06:08] LABS: BASO # 0.1 (0.0-0.2); BASO % 0.6 % (0.0-2.0); EOS # 0.3 (0.0-0.7); EOS % 3.4 % (0-4.0); GRAN # 6.2 (1.4-6.5); GRAN % 66.4 % (42.2-75.2); LYMPH # 1.5 (1.2-3.4); LYMPH % 16.4 % (20.0-51.0); MEAN CELL VOLUME 67 fl (80.0-100.0); MEAN CORPUSCULAR HGB CONC 29 g/dl (33.0-37.0); MONO # 1.2 (0.1-0.6); MONO % 12.7 % (1.7-9.3); PLATELET COUNT 284 K/mm3 (130-400); RED BLOOD COUNT 4.64 M/mm3 (4.10-5.30); REDCELL DISTRIBUTION WIDTH-CV 23.4 % (11.5-14.5)
[2018-10-31 06:10] LABS: HEMATOCRIT 31.1 % (37.0-47.0); HEMOGLOBIN 8.9 g/dl (12.5-16.0); MEAN CORPUSCULAR HEMOGLOBIN 19 pg (27.0-31.0)
[2018-10-31 06:17] LABS: BILIRUBIN,TOTAL 0.9 mg/dL (0.0-1.0); CREATININE, serum 1.12 (0.52-1.25); MAGNESIUM 2.1 mg/dL (1.6-2.3); POTASSIUM 3.9 mmol/L (3.4-5.0); TOTAL PROTEIN 6.7 gm/dL (6.4-8.2)
[2018-10-31 06:24] LABS: PRE ALBUMIN 8.2 mg/dL (17.6-36.0)
--- NOTE | 2018-10-31 07:56 | NUR ---
Asmita Wheeler,social work, and I met with pt daughter and son yesterday to further clarify goals of care. Daughter, Evette, was very clear that at this point she believes her mother is tired and no longer willing to fight. She reports that the family has discussed this and wants her mother's goal of care to be that of comfort. She does not believe that she can care for her mother in her home and does not want her to go to a retirement. Support provided, hospice services encouraged for support and Evette is agreeable to tour [facility] and explore financial issues. Will follow up today.
--- NOTE | 2018-10-31 08:00 | NUR ---
UPON ENTRY TO ROOM THE PATIENT IS MOANING AND REACHING FOR THE CEILING. PATIENT IS ALERT AND RESPONDS TO NAME. PATIENT IS OTHERWISE CONFUSED. TACHYCARDIA WITH IRREGULAR RHYTHM NOTED, OTHERWISE VSS. TELE IN PLACE. BOWEL SOUNDS ACTIVE ALL FOUR QUADRANTS. PATIENT NOT TAKING ANYTHING PO. ABDOMINAL LAP SITES X5 CERTIFIED DIABETES EDUCATOR WITH EDGES WELL APPROXIMATED. NON-PITTING EDEMA TO BLE. PICC LINE TO RUE. INTERMITTENT MARISSA-WICK CATHETER IN PLACE AND CONNECTED TO SUCTION. CLEAR YELLOW URINE PRESENT IN DRAINAGE CANISTER. CALL LIGHT WITHIN REACH. BED ALARM ON.
[2018-10-31 08:01] VITALS: BP 133/93; PULSE 70; TEMP 97.5
--- NOTE | 2018-10-31 09:27 | NUR ---
PATIENT PLACED ON COMFORT CARE PRE DR. GONZALES. SCOPOLAMINE PATCH APPLIED BEHIND LEFT EAR.
--- NOTE | 2018-10-31 12:43 | NUR ---
Tavo, at [facility], reports that they can accept the patient at the [facility] tomorrow, 11/01, at 1000. ANTWON contacted and updated the patient's daughter, Evette. Evette is in agreeance to the plan. ANTWON will need to set up ambulance transport for tomorrow and will continue to follow.
--- NOTE | 2018-10-31 18:52 | NUR ---
REPORT GIVEN TO JADEN GIPSON.
--- NOTE | 2018-11-01 01:30 | NUR ---
PATIENT IN BED. TURNED Q2 HOURS. PATIENT IS NOT ALERT OR ORIENTED. RESPONSIVE TO TOUCH AND SOUND. PAIN/AGITATION SEEMS CONTROLLED WITH ATIVAN AND ROXALON. PATIENT ON COMFORT CARE. WILL CONTINUE TO MONITOR.
--- NOTE | 2018-11-01 08:00 | NUR ---
UPON ENTRY TO ROOM THE PATIENT IS MOANING AND RESTLESS IN BED. PATIENT IS ALERT AND RESPONDS TO NAME. PATIENT IS OTHERWISE CONFUSED. TACHYCARDIA WITH IRREGULAR RHYTHM NOTED. BOWEL SOUNDS ACTIVE ALL FOUR QUADRANTS. PATIENT NOT TAKING ANYTHING PO. ABDOMINAL LAP SITES X5 COMMUNICATIONS OFFICER WITH EDGES WELL APPROXIMATED. NON-PITTING EDEMA TO BLE. GENERALIZED EDEMA. PICC LINE TO RUE. INTERMITTENT MARISSA-WICK CATHETER IN PLACE AND CONNECTED TO SUCTION. CLEAR LANDON URINE PRESENT IN DRAINAGE CANISTER. CALL LIGHT WITHIN REACH. BED ALARM ON.
[2018-11-01] MEDS ORDERED: RT ALBUTER2.5 MG/0.5 IH (08:44)
[2018-11-01] MEDS ORDERED: TRANSDERM-0.5 MG/21 TD (08:47)
[2018-11-01] MEDS ORDERED: DULCOLAX S10 MG/SUPP RC (08:47)
[2018-11-01] MEDS ORDERED: FLEET ENEM1 BOT/133 RC (08:47)
[2018-11-01] MEDS ORDERED: ARTIFICIAL TEAR15 M7 OP (08:47)
[2018-11-01] MEDS ORDERED: HALDOL 2MG T2 MG/TAB PO (08:50)
[2018-11-01] MEDS ORDERED: ROXANOL 20MG20 MG/ML SL (08:50)
[2018-11-01] MEDS ORDERED: ATIVAN2 MG PO (08:50)
--- NOTE | 2018-11-01 09:11 | NUR ---
The patient is to discharge today, 11/01, to [facility]. Tavo at [facility] requested that ANTWON fax the patient's scripts to [facility]. ANTWON faxed the scripts to [facility]. Transporation was scheduled for 1000, via [facility]. ANTWON informed the patient's nurse and the patient's daughter, via phone. They were both in agreeance. ANTWON also explained the IM form to the patient's daughter, Evette. Evette gave ANTWON her verbal consent. No additional needs at this time.
--- NOTE | 2018-11-01 09:30 | NUR ---
PICC intact right upper arm with sterile dressing change done with insertion site cleansed with chloraprep x 1, chlorhexidine impregnated disk, skin prep, stat lock, and tegaderm applied. no signs or symptoms of IV complications noted. re-wrapped with fauzia to protect catheter.
[2018-11-01 09:41] VITALS: BP 133/93; PULSE 70; TEMP 97.5
--- NOTE | 2018-11-01 10:00 | NUR ---
PATIENT'S INTERMITTENT MARISSA-WICK CATHETER DISCONTINUED.
--- NOTE | 2018-11-01 10:15 | NUR ---
PATIENT TAKEN TO EMS TRANSPORT VEHICLE VIA GURNEY. REPORT CALLED TO JADEN CUEVAS AT [facility]. PATIENT TRANSFERRED.
== END 2018-11-01 10:15 | disposition hospice, inpatient (51) | DRG 336 ==
LOC: COL.ER 17:42 → SURG 19:24 → ICU 19:24 → COL.ER 19:24 → MEDICAL 19:24 → SURG 10-22 12:34 → MEDICAL 10-22 12:34 → SURG 10-22 12:34 → ICU 10-22 14:56 → SURG 10-22 14:56 → ICU 10-22 14:56 → SURG 10-23 10:33 → ICU 10-23 10:33 → SURG 10-23 19:00
PROVIDERS: Emergency Medicine; Family Medicine; Hospitalist; Internal Medicine; Nurse Practitioner Family; Physician Assistant; Surgery; ADMIT Family Medicine
PROC: 0JN83ZZ Release Abdomen Subcutaneous Tissue and Fascia, Percutaneous Approach (ICD-10-PCS; 2018-10-22)
PROC: 0DN83ZZ Release Small Intestine, Percutaneous Approach (ICD-10-PCS; 2018-10-22)
PROC: 02HV33Z Insertion of Infusion Device into Superior Vena Cava, Percutaneous Approach (ICD-10-PCS; 2018-10-22)
PROC: 0DNU3ZZ Release Omentum, Percutaneous Approach (ICD-10-PCS; principal; 2018-10-22 13:00)
DX: K56.600 Partial intestinal obstruction, unspecified as to cause (principal); I50.32 Chronic diastolic (congestive) heart failure; I13.0 Hypertensive heart and chronic kidney disease with heart failure and stage 1 through stage 4 chronic kidney disease, or unspecified chronic kidney disease; J96.11 Chronic respiratory failure with hypoxia; E46 Unspecified protein-calorie malnutrition; N18.3 Chronic kidney disease, stage 3 (moderate); E11.22 Type 2 diabetes mellitus with diabetic chronic kidney disease; I25.10 Atherosclerotic heart disease of native coronary artery without angina pectoris; G47.33 Obstructive sleep apnea (adult) (pediatric); K21.9 Gastro-esophageal reflux disease without esophagitis; K46.9 Unspecified abdominal hernia without obstruction or gangrene; D56.9 Thalassemia, unspecified; D50.9 Iron deficiency anemia, unspecified; N32.81 Overactive bladder; E66.01 Morbid (severe) obesity due to excess calories; G89.18 Other acute postprocedural pain; E78.5 Hyperlipidemia, unspecified; E55.9 Vitamin D deficiency, unspecified; Z79.4 Long term (current) use of insulin; Z79.02 Long term (current) use of antithrombotics/antiplatelets; Z79.82 Long term (current) use of aspirin; Z95.818 Presence of other cardiac implants and grafts; Z95.0 Presence of cardiac pacemaker; Z88.6 Allergy status to analgesic agent; Z88.8 Allergy status to other drugs, medicaments and biological substances; Z90.710 Acquired absence of both cervix and uterus
CPT/HCPCS: 99222-AI; 99231-AI; 99232-AI; 99233-AI; 99239; A4216; A4217; C1751; J0330; J0360; J0500; J0610; J0690; J0696; J1100; J1630; J1644; J1650; J1815; J1940; J2060; J2270; J2405; J2704; J3010; J3475; J3480; J3486; J7030; J7131; Q9967